=== PATIENT | female | born 1980 | race Caucasian/White ===

== ENCOUNTER 2022-07-05 17:09 | Emergency (ER) | payer SELFPAY ==
--- OUTSIDE RECORDS SUMMARY | 2022-07-05 17:21 | XMS REPORT | Continuity of Care Document ---
:1980 Author Organization [facility] t Address [address] [place] [address] Care Team Providers Name Role Phone UNKNOWN, REFFERING Primary Care Physician Unavailable TORY ROSE Attending Clinician Unavailable TORY ROSE Attending Clinician Unavailable Merry Humphrey Attending Clinician MERRY BUSTILLOS Attending Clinician Unavailable Doctor Unassigned, [place] Attending Clinician Unavailable Provider, [facility] Attending Clinician Unavailable Yasmani Escobar MD Attending Clinician Chayito HUMPHREYS Attending Clinician Unavailable Chayito Terry Attending Clinician Anneliese Gonzalez RN Attending Clinician Unavailable Only, [facility] Test Attending Clinician Unavailable Guerrero Irving Attending Clinician GUERRERO CH Attending Clinician Unavailable YASMANI ESCOBAR Attending Clinician Unavailable DHRUV CROWDER Attending Clinician Unavailable Huma Johnson RN Attending Clinician Unavailable Bernardo Tyler DO Attending Clinician Provider, [facility] Attending Clinician Unavailable Alexander Iglesias PA-C Attending Clinician ALEXANDER IGLESIAS Attending Clinician Unavailable Pcp, Patient Does Not Have A Attending Clinician [phone] Seth Diaz MD Attending Clinician Anene INSIDE TRUCKER, Alysa Attending Clinician ALYSA BLOOD Attending Clinician Unavailable [facility] Attending Clinician Unavailable GASTON CURRAN M.D. Attending Clinician Unavailable KOLTNO MUÑIZ Attending Clinician Unavailable SE, ECHO Attending Clinician Unavailable YAMILETH RAMIREZ M.D., Manuela CARSON Attending Clinician Unavailable Chayito HUMPHREYS Admitting Clinician Unavailable YAMILETH RAMIREZ M.D., YAMILETH Admitting Clinician Unavail able Payers Payer Name Policy Type Policy Number Effective Date Expiration Date Juliano bains [facility] [id number] 2017 00:00:00 Problems Condition Condition Condition Status Onset Resolution Last Treating Co mments Source Name Details Category Date Date Treatment Clinician Date Pain in Pain in Disease Active Univers both hands both hands 01-26 it y of 00:00: [place] 00 Medical Branch intermediate project manager assisted Disease Active Uni vers (current) (current) 01-26 ity of use of use of 00:00: [place] non-steroi non-steroi 00 Me dical crow crow Branch anti-infla anti-infla mmatories mmatories (nsaid) (nsaid) Pain in Pain in Disease Active Univers joint, joint, 01-26 ity of multiple multiple 00:00: [place] sites sites 00 [facility] Branch Swelling Swelling Disease Active Unive rs of both of both 01-26 ity of hands hands 00:00: [place] 00 Medical Branch intermediate project manager intermediate project manager Disease Active Uni vers (current) (current) 01-26 ity of use of use of 00:00: [place] systemic systemic 00 Medica l steroids steroids Branch Long-term Long-term Disease Active Uni vers use of use of 01-26 ity of Plaquenil Plaquenil 00:[place] [facility] [place] Immunizati Immunizati Disease Active U nivers on on 01-26 it[place] of counseling counseling [place] [facility] Long-term Long-term Disease Active Uni vers use of use of 01-26 ity of Plaquenil Plaqu[place]il [place] [facility] SVT SVT Disease Active Univers (supravent (supravent 4-30 it y of ricular ricular 00:00: [place] tachycardi tachycardi 00 Me dical a) a) Branch Drug Drug Disease Active 2016-05 [facility] overdose, overdose, 1-28 ity of intentiona intentiona 00:[place] [facility] Drug Drug Disease Active 2016-05 [facility] overdose, overdose, - ity of intentiona intentiona 00:[place] [facility] Obesity Obesity Disease Active 2016-05 Univers (BMI (BMI 1- ity of 30-39.9) 30-39.9) 00:00: [place] 00 Medical Branch Insomnia Insomnia Disease Active 2014-05 Unive rs 05-25 ity of 00:00: [place] 00 Medical Branch Anxiety Anxiety Disease Active 2014-05 Univers 05-25 ity of 00:00: [place] 00 Medical Branch Left Left Disease Active 2014-05 Univers shoulder shoulder 05-25 ity of pain pain 00:00: [place] 00 Medical Branch Primary Primary Disease Active 2014-05 Univers osteoarthr osteoarthr 05-25 it y of itis itis 00:00: [place] 00 Medical Branch History of History of Problem Resolve [facility] paroxysmal paroxysmal [id number] d Physici supraventr supraventr an s icular icular tachycardi tachycardi a a Heart Heart Problem Active [facility] palpitatio palpitatio [id number] Physici ns ns ans Allergies, Adverse Reactions, Alerts Allergy Allergy Status Severity Reaction(s) Onset Inactive Treating Comm ents Source Name Type Date Date Clinician BUPROPIO DRUG Active High Other-Cmnt 2016-05 Univ ers N HCL INGREDI 2-12 ity of 00:00: [place] 00 Medical Branch Bupropio Propensi Active Other - See 2016-05 Suicidal Univers n Hcl ty to comments 2-12 ideations ity o f adverse 00:00: [place] reaction 00 Medical s to Branch drug Family History Family Member Diagnosis Comments Start Date Stop Date Source Grandmother Family history of H/O heart [facility] artery stent Grandmother Family history of coronary [facility] artery disease Social History Social Habit Start Date Stop Date Quantity Comments Source History SDOH University o f Alcohol Frequency [place] M edical Branch History SDOH University o f Alcohol Std [place] Medical Drinks Branch History SDOH University o f Alcohol Binge [place] Medic al Branch Exposure to 2022-01-23 2022-02-02 Yes University of SARS-CoV-2 00:00:00 00:19:00 [facility] (event) Branch Alcohol intake 2020-01-22 2020-01-22 0 /d University of 00:00:00 00:00:00 [facility] Tobacco use and 2017-11-18 2017-11-18 Smokeless tobacco Un iversity of exposure 00:00:00 00:00:00 non-user [facility] Alcohol Comment 2017-11-18 2017-11-18 social Universit y of 00:00:00 00:00:00 [facility] Sex [birth year] At [birth year] Universit y of 00:00:00 00:00:00 [facility] Smoking Status Start Date Stop Date Source Never smoked tobacco [facility] Medications Ordered Filled Start Stop Current Ordering Indication Dosage Frequency Signature Comments Components Source Medication Medication Date Date Medication? Clinician (SIG) Name Name proMETHazin 2021- No 25mg 25 mg, IV Univers e 02-02 Piggyback, ity of (PHENERGAN) 07:30: 07:36 [place]CE[place] 1 [place] 25 [place] in 00 :00 dose, On Medical NaCl 0.9% Mon Branch (NS) 50 mL 02/02/22 at IV 0230, BRAN piggyback NaCl 0.9% 2021- No 500mL at 999 Univ ers (NS) bolus 02-02 mL/hr, 500 it y of infusion 07:30: 08:07 mL, IV [place] 500 mL 00 :00 Infusion, Medical ONCE, 1 Branch dose, On Wed02/02/22 at 0230, STAT NaCl 0.9% 2021- No 1000mL at 999 Uni vers (NS) bolus 02-02 mL/hr, ity of infusion 06:15: 07:40 1,000 mL, Brendan as 1,000 mL 00 :00 IV Medical Infusion, Branch ONCE, 1 dose, On Wed02/02/22 at 0115, BRAN ondansetron 2021- No 4mg 4 mg, Slow Univers (ZOFRAN 02-02 IV Push, ity of (PF)) 05:30: 05:35 ONCE, 1 [place] injection 4 00 :00 dose, On Medi alma delia mg Mon Branch 02/02/22 at 0030, BRAN proMETHazin Yes [id number] 25mg Take 1 Univers e 25 mg 9-12 tablet by ity of tablet 00:00: mouth [place] 00 every 6 Medical (six) Branch hours as needed for Nausea and Vomiting (N/V). ciprofloxac 2021- No [id number] 1[drp] Place 1 Univers in HCl 0.3 12-24 [id number] Drop in ity of % opthalmic 00:00: 04:59 right eye [place] drops 00 :00 4 (four) Medical times Branch daily for 10 days. ciprofloxac 2021- No [id number] 1[drp] Place 1 Univers in HCl 0.3 12-24 [id number] Drop in ity of % opthalmic 00:00: 04:59 right eye [place] drops 00 :00 4 (four) Medical times Branch daily for 10 days. methocarbam 2021- No 500mg 500 mg, U nivers oL 08-03 Oral, ity of (ROBAXIN) 23:30: 22:49 ONCE, 1 [place] tablet 500 00 :00 dose, On Medic al mg Sun Branch 08/03/21 at 1830, Routine HYDROcodone 2021- No 1{tbl} 1 tablet, Univers -acetaminop 08-03 Oral, ity of hen (NORCO) 22:30: 22:49 [place]CE[place] 1 [place] 10-325 mg 00 :00 dose, On Medica l tablet 1 Sun Branch tablet 08/03/21 at 1730, Routine ibuprofen Yes [id number] 600mg Take 1 Univers 600 mg - [id number] tablet by ity of tablet 00:00: mouth [place] 00 every 6 Medical (six) Branch hours as needed for Pain (scale 4-6). methocarbam Yes [id number] 500mg Take 1 Univers oL 500 mg - [id number] tablet by ity of tablet 00:00: mouth 4 [place] 00 (four) Medical times Branch daily. ibuprofen 2021-0 Yes [id number] 600mg Take 1 Univers 600 mg - [id number] tablet by ity of tablet 00:00: mouth [place] 00 every 6 Medical (six) Branch hours as needed for Pain (scale 4-6). methocarbam 202-0 Yes [id number] 500mg Take 1 Univers oL 500 mg 3-13 [id number] tablet by ity of tablet 00:00: mouth (four) Medical times Branch daily. ibuprofen 2021-0 Yes [id number] 600mg Take 1 Univers 600 mg 3-13 [id number] tablet by ity of tablet 00:00: mouth 00 every 6 Medical (six) Branch hours as needed for Pain (scale 4-6). methocarbam 2021-0 Yes [id number] 500mg Take 1 Univers oL 500 mg 3-13 [id number] tablet by ity of tablet 00:00: mouth (four) Medical times Branch daily. ibuprofen 2021-0 Yes [id number] 600mg Take 1 Univers 600 mg 3-13 [id number] tablet by ity of tablet 00:00: mouth 00 every 6 Medical (six) Branch hours as needed for Pain (scale 4-6). methocarbam 2021-0 Yes [id number] 500mg Take 1 Univers oL 500 mg 3-13 [id number] tablet by ity of tablet 00:00: mouth (four) Medical times Branch daily. ibuprofen 2021-0 Yes [id number] 600mg Take 1 Univers 600 mg 3-13 [id number] tablet by ity of tablet 00:00: mouth 00 every 6 Medical (six) Branch hours as needed for Pain (scale 4-6). methocarbam 2021-0 Yes [id number] 500mg Take 1 Univers oL 500 mg 3-13 [id number] tablet by ity of tablet 00:00: mouth (four) Medical times Branch daily. ibuprofen 2021-0 Yes [id number] 600mg Take 1 Univers 600 mg 3-13 [id number] tablet by ity of tablet 00:00: mouth every 6 Medical (six) Branch hours as needed for Pain (scale 4-6). methocarbam 2021-0 Yes [id number] 500mg Take 1 Univers oL 500 mg 3-13 [id number] tablet by ity of tablet 00:00: mouth (four) Medical times Branch daily. DULoxetine 2020-05 Yes [id number] 60mg Take 1 U nivers 60 mg 2-20 capsule by ity of capsule 00:00: mouth 00 daily. Medical Branch DULoxetine 2020-05 Yes [id number] 60mg Take 1 U nivers 60 mg 2-20 capsule by ity of capsule 00:00: mouth [place] 00 daily. Medical Branch DULoxetine 2020-05 Yes [id number] 60mg Take 1 U nivers 60 mg 2-20 capsule by ity of capsule 00:00: mouth [place] 00 daily. Medical Branch DULoxetine 2020-05 Yes [id number] 60mg Take 1 U nivers 60 mg 2-20 capsule by ity of capsule 00:00: mouth [place] 00 daily. Medical Branch DULoxetine 2020-05 Yes [id number] 60mg Take 1 U nivers 60 mg 2-20 capsule by ity of capsule 00:00: mouth [place] 00 daily. Medical Branch DULoxetine 2020-05 Yes [id number] 60mg Take 1 U nivers 60 mg 2-20 capsule by ity of capsule 00:00: mouth [place] 00 daily. Medical Branch DULoxetine 2020-05 Yes [id number] 60mg Take 1 U nivers 60 mg 2-20 capsule by ity of capsule 00:00: mouth [place] 00 daily. Medical Branch DULoxetine 2020-05 Yes [id number] 60mg Take 1 U nivers 60 mg 2-20 capsule by ity of capsule 00:00: mouth [place] 00 daily. Medical Branch DULoxetine 2020-05 Yes [id number] 60mg Take 1 U nivers 60 mg 2-20 capsule by ity of capsule 00:00: mouth [place] 00 daily. Medical Branch DULoxetine 2020-05 Yes [id number] 60mg Take 1 U nivers 60 mg 1-17 capsule by ity of capsule 00:00: mouth [place] 00 daily. Medical Branch DULoxetine 2020-05 Yes [id number] 60mg Take 1 U nivers 60 mg 1-17 capsule by ity of capsule 00:00: mouth [place] 00 daily. Medical Branch DULoxetine 2020-05- [id number] 60mg Take 1 Univers 60 mg 1-17 12-20 capsule by ity of capsule 00:00: 00:00 mouth [place] 00 :00 daily. Medical Branch METOPROLOL 2020-05 Yes [id number] TAKE ONE Univers SUCCINATE 1-10 TABLET BY ity o f XL 50 mg 24 00:00: MOUTH [place] hr tablet 00 DAILY Medical Branch METOPROLOL 2020- Yes [id number] TAKE ONE Univers SUCCINATE 1-10 TABLET BY ity o f XL 50 mg 24 00:00: MOUTH [place] hr tablet 00 DAILY Medical Branch METOPROLOL 2020-05 Yes [id number] TAKE ONE Univers SUCCINATE 1-10 TABLET BY ity o f XL 50 mg 24 00:00: MOUTH [place] hr tablet 00 DAILY Medical Branch METOPROLOL 2020-05 Yes [id number] TAKE ONE Univers SUCCINATE 1-10 TABLET BY ity o f XL 50 mg 24 00:00: MOUTH [place] hr tablet 00 DAILY Medical Branch METOPROLOL 2020-05 Yes [id number] TAKE ONE Univers SUCCINATE 1-10 TABLET BY ity o f XL 50 mg 24 00:00: MOUTH [place] hr tablet 00 DAILY Medical Branch METOPROLOL 2020-05 Yes [id number] TAKE ONE Univers SUCCINATE 1-10 TABLET BY ity o f XL 50 mg 24 00:00: MOUTH [place] hr tablet 00 DAILY Medical Branch METOPROLOL 2020-05 Yes [id number] TAKE ONE Univers SUCCINATE 1-10 TABLET BY ity o f XL 50 mg 24 00:00: MOUTH [place] hr tablet 00 DAILY Medical Branch METOPROLOL 2020-05 Yes [id number] TAKE ONE Univers SUCCINATE 1-10 TABLET BY ity o f XL 50 mg 24 00:00: MOUTH [place] hr tablet 00 DAILY Medical Branch METOPROLOL 2020-05 Yes [id number] TAKE ONE Univers SUCCINATE 1-10 TABLET BY ity o f XL 50 mg 24 00:00: MOUTH [place] hr tablet 00 DAILY Medical Branch METOPROLOL 2020-05 Yes [id number] TAKE ONE Univers SUCCINATE 1-10 TABLET BY ity o f XL 50 mg 24 00:00: MOUTH [place] hr tablet 00 DAILY Medical Branch METOPROLOL 2020-05 Yes [id number] TAKE ONE Univers SUCCINATE 1-10 TABLET BY ity o f XL 50 mg 24 00:00: MOUTH [place] hr tablet 00 DAILY Medical Branch METOPROLOL 2020-05 Yes [id number] TAKE ONE Univers SUCCINATE 1-10 TABLET BY ity o f XL 50 mg 24 00:00: MOUTH [place] hr tablet 00 DAILY Medical Branch CYCLOBENZAP 2020-05 Yes [id number] TAKE ONE Univers RINE 10 mg 0-06 TABLET BY ity of tablet 00:00: MOUTH [place] 00 TWICE A Medical DAY Branch NEEDED FOR MUSCLE SPASMS CYCLOBENZAP 2020-05 Yes [id number] TAKE ONE Univers RINE 10 mg 0-06 TABLET BY ity of tablet 00:00: MOUTH [place] 00 TWICE A Medical DAY Branch NEEDED FOR MUSCLE SPASMS CYCLOBENZAP 2020-1 Yes [id number] TAKE ONE Univers RINE 10 mg 0-06 TABLET BY ity of tablet 00:00: MOUTH [place] 00 TWICE A Medical DAY Branch NEEDED FOR MUSCLE SPASMS CYCLOBENZAP 2020-1 Yes [id number] TAKE ONE Univers RINE 10 mg 0-06 TABLET BY ity of tablet 00:00: MOUTH [place] 00 TWICE A Medical DAY Branch NEEDED FOR MUSCLE SPASMS CYCLOBENZAP 2020- Yes [id number] TAKE ONE Univers RINE 10 mg 0-06 TABLET BY ity of tablet 00:00: MOUTH [place] 00 TWICE A Medical DAY Branch NEEDED FOR MUSCLE SPASMS CYCLOBENZAP 2020- Yes [id number] TAKE ONE Univers RINE 10 mg 0-06 TABLET BY ity of tablet 00:00: MOUTH [place] 00 TWICE A Medical DAY Branch NEEDED FOR MUSCLE SPASMS CYCLOBENZAP 2020- Yes [id number] TAKE ONE Univers RINE 10 mg 0-06 TABLET BY ity of tablet 00:00: MOUTH [place] 00 TWICE A Medical DAY Branch NEEDED FOR MUSCLE SPASMS CYCLOBENZAP 2020-1 Yes [id number] TAKE ONE Univers RINE 10 mg 0-06 TABLET BY ity of tablet 00:00: MOUTH [place] 00 TWICE A Medical DAY Branch NEEDED FOR MUSCLE SPASMS CYCLOBENZAP 2020-1 Yes [id number] TAKE ONE Univers RINE 10 mg 0-06 TABLET BY ity of tablet 00:00: MOUTH [place] 00 TWICE A Medical DAY Branch NEEDED FOR MUSCLE SPASMS CYCLOBENZAP 2020-1 Yes [id number] TAKE ONE Univers RINE 10 mg 0-06 TABLET BY ity of tablet 00:00: MOUTH [place] 00 TWICE A Medical DAY Branch NEEDED FOR MUSCLE SPASMS CYCLOBENZAP 1-1 Yes [id number] TAKE ONE Univers RINE 10 mg 0-06 TABLET BY ity of tablet 00:00: MOUTH [place] 00 TWICE A Medical DAY Branch NEEDED FOR MUSCLE SPASMS CYCLOBENZAP 2020-1 Yes [id number] TAKE ONE Univers RINE 10 mg 0-06 TABLET BY ity of tablet 00:00: MOUTH [place] 00 TWICE A Medical DAY Branch NEEDED FOR MUSCLE SPASMS CYCLOBENZAP 2020-1 Yes [id number] TAKE ONE Univers RINE 10 mg 0-06 TABLET BY ity of tablet 00:00: MOUTH [place] 00 TWICE A Medical DAY Branch NEEDED FOR MUSCLE SPASMS DULOXETINE 2020-05 Yes [id number] TAKE ONE Univers 60 mg 0-05 CAPSULE BY ity of capsule 00:00: MOUTH [place] 00 DAILY Medical Branch DULOXETINE 2020-1 Yes [id number] TAKE ONE Univers 60 mg 0-05 CAPSULE BY ity of capsule 00:00: MOUTH [place] 00 DAILY Medical Branch DULOXETINE 1 2021- No [id number] TAKE ONE Univers 60 mg 0-05 11-17 CAPSULE BY ity of capsule 00:00: 00:00 MOUTH [place] 00 :00 DAILY Medical Branch DULOXETINE 2020-0 Yes [id number] TAKE ONE Univers 60 mg 9-07 CAPSULE BY ity of capsule 00:00: MOUTH [place] 00 DAILY Medical Branch DULOXETINE 0 Yes [id number] TAKE ONE Univers 60 mg 9-07 CAPSULE BY ity of capsule 00:00: MOUTH [place] 00 DAILY Medical Branch DULOXETINE 2020-0 2020- No [id number] TAKE ONE Univers 60 mg 9-07 10-05 CAPSULE BY ity of capsule 00:00: 00:00 MOUTH [place] 00 :00 DAILY Medical Branch zolpidem 2020-0 Yes [id number] 12.5mg Take 1 Univers 12.5 mg CR 8-19 tablet by ity of tablet 00:00: mouth at [place] 00 bedtime as Medical needed for Branch Sleep. cyclobenzap 0 Yes [id number] TAKE ONE Univers rine 10 mg 8-19 TABLET BY ity of tablet 00:00: MOUTH [place] 00 TWICE A Medical DAY Branch NEEDED FOR MUSCLE SPASMS zolpidem 2020-0 Yes [id number] 12.5mg Take 1 Univers 12.5 mg CR 8-19 tablet by ity of tablet 00:00: mouth at [place] 00 bedtime as Medical needed for Branch Sleep. zolpidem 2020-0 Yes [id number] 12.5mg Take 1 Univers 12.5 mg CR 8-19 tablet by ity of tablet 00:00: mouth at [place] 00 bedtime as Medical needed for Branch Sleep. zolpidem 2020-0 Yes [id number] 12.5mg Take 1 Univers 12.5 mg CR 8-19 tablet by ity of tablet 00:00: mouth at [place] 00 bedtime as Medical needed for Branch Sleep. zolpidem 0 Yes 12.5mg Take 1 Univers 12.5 mg CR 8-19 tablet by ity of tablet 00:00: mouth at [place] 00 bedtime as Medical needed for Branch Sleep. zolpidem 0 Yes 12.5mg Take 1 Univers 12.5 mg CR 8-19 tablet by ity of tablet 00:00: mouth at [place] 00 bedtime as Medical needed for Branch Sleep. zolpidem 0 Yes 12.5mg Take 1 Univers 12.5 mg CR 8-19 tablet by ity of tablet 00:00: mouth at [place] 00 bedtime as Medical needed for Branch Sleep. zolpidem Yes 12.5mg Take 1 Univers 12.5 mg CR 8-19 tablet by ity of tablet 00:00: mouth at [place] 00 bedtime as Medical needed for Branch Sleep. zolpidem Yes 12.5mg Take 1 Univers 12.5 mg CR 8-19 tablet by ity of tablet 00:00: mouth at [place] 00 bedtime as Medical needed for Branch Sleep. zolpidem Yes 12.5mg Take 1 Univers 12.5 mg CR 8-19 tablet by ity of tablet 00:00: mouth at [place] 00 bedtime as Medical needed for Branch Sleep. zolpidem Yes 12.5mg Take 1 Univers 12.5 mg CR 8-19 tablet by ity of tablet 00:00: mouth at [place] 00 bedtime as Medical needed for Branch Sleep. zolpidem Yes 12.5mg Take 1 Univers 12.5 mg CR 8-19 tablet by ity of tablet 00:00: mouth at [place] 00 bedtime as Medical needed for Branch Sleep. zolpidem Yes 12.5mg Take 1 Univers 12.5 mg CR 8-19 tablet by ity of tablet 00:00: mouth at [place] 00 bedtime as Medical needed for Branch Sleep. zolpidem Yes 12.5mg Take 1 Univers 12.5 mg CR 8-19 tablet by ity of tablet 00:00: mouth at [place] 00 bedtime as Medical needed for Branch Sleep. zolpidem 2020-0 Yes [id number] 12.5mg Take 1 Univers 12.5 mg CR 8-19 tablet by ity of tablet 00:00: mouth at [place] 00 bedtime as Medical needed for Branch Sleep. cyclobenzap 2020-0 Yes [id number] TAKE ONE Univers rine 10 mg 8-19 TABLET BY ity of tablet 00:00: MOUTH [place] 00 TWICE A Medical DAY Branch NEEDED FOR MUSCLE SPASMS cyclobenzap 2020-0 2021- No [id number] TAKE ONE Univers rine 10 mg 8-19 10-06 TABLET BY ity of tablet 00:00: 00:00 MOUTH [place] 00 :00 TWICE A Medical DAY Branch NEEDED FOR MUSCLE SPASMS DULOXETINE 2020-0 Yes [id number] TAKE ONE Univers 60 mg 8-02 CAPSULE BY ity of capsule 00:00: MOUTH [place] 00 DAILY Medical Branch DULOXETINE 2020-0 2020- No [id number] TAKE ONE Univers 60 mg 8-02 09-07 CAPSULE BY ity of capsule 00:00: 00:00 MOUTH [place] 00 :00 DAILY Medical Branch DULOXETINE 2020-0 2020- No [id number] TAKE ONE Univers 60 mg 8-02 09-07 CAPSULE BY ity of capsule 00:00: 00:00 MOUTH [place] 00 :00 DAILY Medical Branch zolpidem 2020-0 Yes [id number] 12.5mg Take 1 Univers 12.5 mg CR 7-23 tablet by ity of tablet 00:00: mouth at [place] 00 bedtime as Medical needed for Branch Sleep. zolpidem 2020-0 Yes [id number] 12.5mg Take 1 Univers 12.5 mg CR 7-23 tablet by ity of tablet 00:00: mouth at [place] 00 bedtime as Medical needed for Branch Sleep. METOPROLOL 2020-0 Yes [id number] TAKE ONE Univers SUCCINATE 7-20 TABLET BY ity o f XL 50 mg 24 00:00: MOUTH [place] hr tablet 00 DAILY Medical Branch METOPROLOL 2020-0 Yes [id number] TAKE ONE Univers SUCCINATE 7-20 TABLET BY ity o f XL 50 mg 24 00:00: MOUTH [place] hr tablet 00 DAILY Medical Branch METOPROLOL 2020-0 Yes [id number] TAKE ONE Univers SUCCINATE 7-20 TABLET BY ity o f XL 50 mg 24 00:00: MOUTH [place] hr tablet 00 DAILY Medical Branch METOPROLOL 2020-0 Yes [id number] TAKE ONE Univers SUCCINATE 7-20 TABLET BY ity o f XL 50 mg 24 00:00: MOUTH [place] hr tablet 00 DAILY Medical Branch METOPROLOL 2020-0 Yes [id number] TAKE ONE Univers SUCCINATE 7-20 TABLET BY ity o f XL 50 mg 24 00:00: MOUTH [place] hr tablet 00 DAILY Medical Branch METOPROLOL 2020-0 Yes [id number] TAKE ONE Univers SUCCINATE 7-20 TABLET BY ity o f XL 50 mg 24 00:00: MOUTH [place] hr tablet 00 DAILY Medical Branch METOPROLOL 2020-0 2021- No [id number] TAKE ONE Univers SUCCINATE 7-20 11-10 TABLET BY ity of XL 50 mg 24 00:00: 00:00 MOUTH [place] hr tablet 00 :00 DAILY Medical Branch DULOXETINE 0 Yes [id number] TAKE ONE [facility] 60 mg 6-07 CAPSULE BY ity of capsule 00:00: MOUTH [place] 00 DAILY Medical Branch DULOXETINE 2020-0 Yes [id number] TAKE ONE [facility] 60 mg 6-07 CAPSULE BY ity of capsule 00:00: MOUTH [place] 00 DAILY Medical Branch DULOXETINE 2020-0 Yes [id number] TAKE ONE Univers 60 mg 6-07 CAPSULE BY ity of capsule 00:00: MOUTH [place] 00 DAILY Medical Branch DULOXETINE 2020-0 2020- No [id number] TAKE ONE Univers 60 mg 6-07 08-02 CAPSULE BY ity of capsule 00:00: 00:00 MOUTH [place] 00 :00 DAILY Medical Branch DULOXETINE 2020-0 Yes [id number] TAKE ONE Univers 60 mg 5-17 CAPSULE BY ity of capsule 00:00: MOUTH [place] 00 DAILY Medical Branch DULOXETINE 2020-0 Yes [id number] TAKE ONE Univers 60 mg 5-17 CAPSULE BY ity of capsule 00:00: MOUTH [place] 00 DAILY Medical Branch DULOXETINE 2020-0 1- No [id number] TAKE ONE Univers 60 mg 5-17 06-07 CAPSULE BY ity of capsule 00:00: 00:00 MOUTH [place] 00 :00 DAILY Medical Branch cyclobenzap 2020-0 Yes [id number] TAKE ONE Univers rine 10 mg 5-04 TABLET BY ity of tablet 00:00: MOUTH [place] 00 TWICE A Medical DAY Branch NEEDED FOR MUSCLE SPASMS cyclobenzap 2020-0 Yes [id number] TAKE ONE Univers rine 10 mg 5-04 TABLET BY ity of tablet 00:00: MOUTH [place] 00 TWICE A Medical DAY Branch NEEDED FOR MUSCLE SPASMS cyclobenzap 2021-0 Yes [id number] TAKE ONE Univers rine 10 mg 5-04 TABLET BY ity of tablet 00:00: MOUTH [place] 00 TWICE A Medical DAY Branch NEEDED FOR MUSCLE SPASMS cyclobenzap 2021-0 Yes [id number] TAKE ONE Univers rine 10 mg 5-04 TABLET BY ity of tablet 00:00: MOUTH [place] 00 TWICE A Medical DAY Branch NEEDED FOR MUSCLE SPASMS cyclobenzap 2021-0 Yes [id number] TAKE ONE Univers rine 10 mg 5-04 TABLET BY ity of tablet 00:00: MOUTH [place] 00 TWICE A Medical DAY Branch NEEDED FOR MUSCLE SPASMS cyclobenzap 2021-0 Yes [id number] TAKE ONE Univers rine 10 mg 5-04 TABLET BY ity of tablet 00:00: MOUTH [place] 00 TWICE A Medical DAY Branch NEEDED FOR MUSCLE SPASMS cyclobenzap 2021-0 Yes [id number] TAKE ONE Univers rine 10 mg 5-04 TABLET BY ity of tablet 00:00: MOUTH [place] 00 TWICE A Medical DAY Branch NEEDED FOR MUSCLE SPASMS CYCLOBENZAP 2021-0 Yes [id number] TAKE ONE Univers RINE 10 mg 4-06 TABLET BY ity of tablet 00:00: MOUTH [place] 00 TWICE A Medical DAY Branch NEEDED FOR MUSCLE SPASM CYCLOBENZAP 2021-0 2021- No [id number] TAKE ONE Univers RINE 10 mg 4-06 05-04 TABLET BY ity of tablet 00:00: 00:00 MOUTH [place] 00 :00 TWICE A Medical DAY Branch NEEDED FOR MUSCLE SPASM HYDROcodone 202-0 Yes [id number] 1{tbl} Take 1 Un chely -acetaminop 3-24 tablet by ity of hen 7.5-325 00:00: mouth [place] mg per 00 every 6 Medical tablet (six) Branch hours as needed for Pain. Indication s: chronic pain HYDROcodone 2021-0 Yes [id number] 1{tbl} Take 1 Un chely -acetaminop 3-24 tablet by ity of hen 7.5-325 00:00: mouth [place] mg per 00 every 6 Medical tablet (six) Branch hours as needed for Pain. Indication s: chronic pain HYDROcodone 202-0 Yes [id number] 1{tbl} Take 1 Un chely -acetaminop 3-24 tablet by ity of hen 7.5-325 00:00: mouth [place] mg per 00 every 6 Medical tablet (six) Branch hours as needed for Pain. Indication s: chronic pain HYDROcodone Yes [id number] 1{tbl} Take 1 Un chely -acetaminop 3-24 tablet by ity of hen 7.5-325 00:00: mouth [place] mg per 00 every 6 Medical tablet (six) Branch hours as needed for Pain. Indication s: chronic pain HYDROcodone Yes 2745 1{tbl} Take 1 [facility] -acetaminop 3-24 tablet by [facility] of hen 7.5-325 00:00: mouth [place] mg per 00 every 6 Medical tablet (six) Branch hours as needed for Pain. Indication s: chronic pain HYDROcodone Yes 2745 1{tbl} Take 1 [facility] che[facility] -acetaminop 3-24 tablet by ity of hen 7.5-325 00:00: mouth [place] mg per 00 every 6 Medical tablet (six) Branch hours as needed for Pain. Indication s: chronic pain HYDROcodone Yes 2745 1{tbl} Take 1 [facility] che[facility] -acetaminop 3-24 tablet by [facility]y of hen 7.5-325 00:00: mouth [place] mg per 00 every 6 Medical tablet (six) Branch hours as needed for Pain. Indication s: chronic pain HYDROcodone Yes 2745 1{tbl} Take 1 [facility] che[facility] -acetaminop 3-24 tablet by [facility]y of hen 7.5-325 00:00: mouth [place] mg per 00 every 6 Medical tablet (six) Branch hours as needed for Pain. Indication s: chronic pain HYDROcodone Yes 2745 1{tbl} Take 1 [facility] che[facility] -acetaminop 3-24 tablet by ity of hen 7.5-325 00:00: mouth [place] mg per 00 every 6 Medical tablet (six) Branch hours as needed for Pain. Indication s: chronic pain ALPRAZOLAM Yes [id number] TAKE ONE [facility] 0.5 mg 3-22 TABLET BY ity of tablet 00:00: MOUTH [place] 00 THREE Medical TIMES A Branch DAY NEEDED FOR ANXIETY ALPRAZOLAM Yes [id number] TAKE ONE [facility] 0.5 mg 3-22 TABLET BY ity of tablet 00:00: MOUTH [place] 00 THREE Medical TIMES A Branch DAY NEEDED FOR ANXIETY ALPRAZOLAM 2021-0 Yes [id number] TAKE ONE [facility] 0.5 mg 3-22 TABLET BY ity of tablet 00:00: MOUTH [place] 00 THREE Medical TIMES A Branch DAY NEEDED FOR ANXIETY ALPRAZOLAM 2021-0 Yes [id number] TAKE ONE [facility] 0.5 mg 3-22 TABLET BY ity of tablet 00:00: MOUTH [place] 00 THREE Medical TIMES A Branch DAY NEEDED FOR ANXIETY ALPRAZOLAM 1-0 Yes [id number] TAKE ONE [facility] 0.5 mg 3-22 TABLET BY ity of tablet 00:00: MOUTH 00 THREE Medical TIMES A Branch DAY NEEDED FOR ANXIETY ALPRAZOLAM 1-0 Yes [id number] TAKE ONE [facility] 0.5 mg 3-22 TABLET BY ity of tablet 00:00: MOUTH 00 THREE Medical TIMES A Branch DAY NEEDED FOR ANXIETY ALPRAZOLAM 1-0 Yes [id number] TAKE ONE [facility] 0.5 mg 3-22 TABLET BY ity of tablet 00:00: MOUTH 00 THREE Medical TIMES A Branch DAY NEEDED FOR ANXIETY ALPRAZOLAM 1-0 Yes [id number] TAKE ONE [facility] 0.5 mg 3-22 TABLET BY ity of tablet 00:00: MOUTH [place] 00 THREE Medical TIMES A Branch DAY NEEDED FOR ANXIETY ALPRAZOLAM 2021-0 Yes [id number] TAKE ONE [facility] 0.5 mg 3-22 TABLET BY ity of tablet 00:00: MOUTH 00 THREE Medical TIMES A Branch DAY NEEDED FOR ANXIETY ALPRAZOLAM 2021-0 Yes [id number] TAKE ONE [facility] 0.5 mg 3-22 TABLET BY ity of tablet 00:00: MOUTH [place] 00 THREE Medical TIMES A Branch DAY NEEDED FOR ANXIETY DULOXETINE 2021-0 Yes [id number] TAKE ONE [facility] 60 mg 2-26 CAPSULE BY ity of capsule 00:00: MOUTH [place] 00 DAILY Medical Branch DULOXETINE 2021-0 Yes [id number] TAKE ONE [facility] 60 mg 2-26 CAPSULE BY ity of capsule 00:00: MOUTH 00 DAILY Medical Branch DULOXETINE 2021-0 Yes [id number] TAKE ONE [facility] 60 mg 2-26 CAPSULE BY ity of capsule 00:00: MOUTH [place] 00 DAILY Medical Branch DULOXETINE 2021-0 Yes [id number] TAKE ONE [facility] 60 mg 2-26 CAPSULE BY ity of capsule 00:00: MOUTH [place] 00 DAILY Medical Branch DULOXETINE 0 Yes [id number] TAKE ONE [facility] 60 mg 2-26 CAPSULE BY ity of capsule 00:00: MOUTH [place] 00 DAILY Medical Branch DULOXETINE 0 Yes [id number] TAKE ONE [facility] 60 mg 2-26 CAPSULE BY ity of capsule 00:00: MOUTH [place] DAILY Medical Branch DULOXETINE 2020- No [id number] TAKE ONE [facility] 60 mg 2-26 05-17 CAPSULE BY ity of capsule 00:00: 00:00 MOUTH [place] 00 :00 DAILY Medical Branch HYDROcodone Yes 2745 1{tbl} Take 1 [facility] chely -acetaminop 2-24 tablet by ity of hen 7.5-325 00:00: mouth [place] mg per 00 every 6 Medical tablet (six) Branch hours as needed for Pain. Indication s: chronic pain HYDROcodone Yes 2745 1{tbl} Take 1 [facility] che[facility] -acetaminop 2-24 tablet by [facility]y of hen 7.5-325 00:00: mouth [place] mg per 00 every 6 Medical tablet (six) Branch hours as needed for Pain. Indication s: chronic pain HYDROcodone Yes 2745 1{tbl} Take 1 [facility] che[facility] -acetaminop 2-24 tablet by [facility]y of hen 7.5-325 00:00: mouth [place] mg per 00 every 6 Medical tablet (six) Branch hours as needed for Pain. Indication s: chronic pain HYDROcodone Yes 2745 1{tbl} Take 1 [facility] che[facility] -acetaminop 2-24 tablet by [facility]y of hen 7.5-325 00:00: mouth [place] mg per 00 every 6 Medical tablet (six) Branch hours as needed for Pain. Indication s: chronic pain HYDROcodone 2020- No 2745 1{tbl} Take 1 [facility] n[facility] -acetaminop 2-24 03-24 tablet by it y of hen 7.5-325 00:00: 00:00 mouth [place] mg per 00 :00 every 6 Medical tablet (six) Branch hours as needed for Pain. Indication s: chronic pain ondansetron 2020- No [id number] 8mg Take 1 [facility] (ZOFRAN 2-12 02-16 tablet by ity of ODT) 8 mg 00:00: 05:59 mouth [place] disintegrat 00 :00 every 8 Medic al ing tablet (eight) Branch hours as needed for Nausea and Vomiting (N/V) for up to 3 days. ondansetron 2020- No [id number] 8mg Take 1 [facility] (ZOFRAN 2-12 02-16 tablet by ity of ODT) 8 mg 00:00: 05:59 mouth [place] disintegrat 00 :00 every 8 Medic al ing tablet (eight) Branch hours as needed for Nausea and Vomiting (N/V) for up to 3 days. ALPRAZOLAM Yes [id number] TAKE ONE [facility] 0.5 mg 2-04 TABLET BY ity of tablet 00:00: MOUTH [place] 00 THREE Medical TIMES A Branch DAY NEEDED FOR OTHER ( ANXIETY ) ALPRAZOLAM Yes [id number] TAKE ONE [facility] 0.5 mg 2-04 TABLET BY ity of tablet 00:00: MOUTH [place] 00 THREE Medical TIMES A Branch DAY NEEDED FOR OTHER ( ANXIETY ) ALPRAZOLAM Yes [id number] TAKE ONE [facility] 0.5 mg 2-04 TABLET BY ity of tablet 00:00: MOUTH [place] 00 THREE Medical TIMES A Branch DAY NEEDED FOR OTHER ( ANXIETY ) ALPRAZOLAM Yes [id number] TAKE ONE [facility] 0.5 mg 2-04 TABLET BY ity of tablet 00:00: MOUTH [place] 00 THREE Medical TIMES A Branch DAY NEEDED FOR OTHER ( ANXIETY ) ALPRAZOLAM Yes [id number] TAKE ONE [facility] 0.5 mg 2-04 TABLET BY ity of tablet 00:00: MOUTH [place] 00 THREE Medical TIMES A Branch DAY NEEDED FOR OTHER ( ANXIETY ) ALPRAZOLAM Yes [id number] TAKE ONE [facility] 0.5 mg 2-04 TABLET BY [facility]y of tablet 00:00: MOUTH [place] 00 THREE Medical TIMES A Branch DAY NEEDED FOR OTHER ( ANXIETY ) ALPRAZOLAM 2020- No [id number] TAKE ONE [facility] 0.5 mg 2-04 03-22 TABLET BY ity of tablet 00:00: 00:00 MOUTH [place] 00 :00 THREE Medical TIMES A Branch DAY NEEDED FOR OTHER ( ANXIETY ) HYDROcodone Yes [id number] 1{tbl} Take 1 [facility] che[facility] -acetaminop 1-26 tablet by [facility]y of hen 7.5-325 00:00: mouth [place] mg per 00 every 6 Medical tablet (six) Branch hours as needed for Pain. Indication s: chronic pain HYDROcodone Yes 2745 1{tbl} Take 1 [facility] che[facility] -acetaminop 1-26 tablet by [facility]y of hen 7.5-325 00:00: mouth [place] mg per 00 every 6 Medical tablet (six) Branch hours as needed for Pain. Indication s: chronic pain HYDROcodone Yes 2745 1{tbl} Take 1 [facility] che[facility] -acetaminop 1-26 tablet by [facility] of hen 7.5-325 00:00: mouth [place] mg per 00 every 6 Medical tablet (six) Branch hours as needed for Pain. Indication s: chronic pain HYDROcodone Yes 2745 1{tbl} Take 1 [facility] che[facility] -acetaminop 1-26 tablet by [facility] of hen 7.5-325 00:00: mouth [place] mg per 00 every 6 Medical tablet (six) Branch hours as needed for Pain. Indication s: chronic pain HYDROcodone 2020- No 2745 1{tbl} Take 1 [facility] nivers -acetaminop 1-26 02-24 tablet by it y of hen 7.5-325 00:00: 00:00 mouth [place] mg per 00 :00 every 6 Medical tablet (six) Branch hours as needed for Pain. Indication s: chronic pain metoprolol 2019-05 Yes [id number] 50mg Take 1 [facility] nivers succinate 2-21 tablet by ity o f XL 50 mg 24 00:00: mouth [place] hr tablet 00 daily. Medical Branch zolpidem 2019-05 Yes [id number] 12.5mg Take 1 [facility] 12.5 mg CR 2-21 tablet by ity of tablet 00:00: mouth at [place] 00 bedtime as Medical needed for Branch Sleep. metoprolol 2019-05 Yes [id number] 50mg Take 1 [facility] nivers succinate 2-21 tablet by ity o f XL 50 mg 24 00:00: mouth [place] hr tablet 00 daily. Medical Branch zolpidem 2019-05 Yes [id number] 12.5mg Take 1 [facility] 12.5 mg CR 2-21 tablet by ity of tablet 00:00: mouth at [place] 00 bedtime as Medical needed for Branch Sleep. metoprolol 2019-05 Yes [id number] 50mg Take 1 [facility] nivers succinate 2-21 tablet by ity o f XL 50 mg 24 00:00: mouth [place] hr tablet 00 daily. Medical Branch zolpidem 2019-05 Yes [id number] 12.5mg Take 1 [facility] 12.5 mg CR 2-21 tablet by ity of tablet 00:00: mouth at [place] 00 bedtime as Medical needed for Branch Sleep. metoprolol 2019-05 Yes [id number] 50mg Take 1 [facility] nivers succinate 2-21 tablet by ity o f XL 50 mg 24 00:00: mouth [place] hr tablet 00 daily. Medical Branch zolpidem 2019-05 Yes [id number] 12.5mg Take 1 [facility] 12.5 mg CR 2-21 tablet by ity of tablet 00:00: mouth at [place] 00 bedtime as Medical needed for Branch Sleep. zolpidem 2019-05 Yes [id number] 12.5mg Take 1 [facility] 12.5 mg CR 2-21 tablet by ity of tablet 00:00: mouth at [place] 00 bedtime as Medical needed for Branch Sleep. HYDROcodone 2019-05 Yes [id number] 1{tbl} Take 1 [facility] che[facility] -acetaminop 2-21 tablet by ity of hen 7.5-325 00:00: mouth [place] mg per 00 every 6 Medical tablet (six) Branch hours as needed for Pain. Indication s: chronic pain metoprolol 2019-05 Yes [id number] 50mg Take 1 [facility] nivers succinate 2-21 tablet by ity o f XL 50 mg 24 00:00: mouth [place] hr tablet 00 daily. Medical Branch zolpidem 2019-05 Yes [id number] 12.5mg Take 1 [facility] 12.5 mg CR 2-21 tablet by ity of tablet 00:00: mouth at [place] 00 bedtime as Medical needed for Branch Sleep. cyclobenzap 2019-05 Yes [id number] TAKE ONE [facility] rine 10 mg 2-21 TABLET BY ity of tablet 00:00: MOUTH [place] 00 TWICE A Medical DAY Branch NEEDED FOR MUSCLE SPASM ALPRAZolam 2019-05 Yes [id number] .5mg Take 1 [facility] n[facility] (XANAX) 0.5 2-21 tablet by ity of mg tablet 00:00: mouth 3 [place] 00 (three) Medical times Branch daily as needed for Other (anxiety). HYDROcodone 2019-05 Yes [id number] 1{tbl} Take 1 [facility] chely -acetaminop 2-21 tablet by ity of hen 7.5-325 00:00: mouth [place] mg per 00 every 6 Medical tablet (six) Branch hours as needed for Pain. Indication s: chronic pain metoprolol 2019-05 Yes [id number] 50mg Take 1 U nivers succinate 2-21 tablet by ity o f XL 50 mg 24 00:00: mouth [place] hr tablet 00 daily. Medical Branch zolpidem 2019-05 Yes [id number] 12.5mg Take 1 [facility] 12.5 mg CR 2-21 tablet by ity of tablet 00:00: mouth at [place] 00 bedtime as Medical needed for Branch Sleep. cyclobenzap 2019-05 Yes [id number] TAKE ONE [facility] rine 10 mg 2-21 TABLET BY ity of tablet 00:00: MOUTH [place] 00 TWICE A Medical DAY Branch NEEDED FOR MUSCLE SPASM ALPRAZolam 2019-05 Yes [id number] .5mg Take 1 [facility] n[facility] (XANAX) 0.5 2-21 tablet by ity of mg tablet 00:00: mouth 3 [place] 00 (three) Medical times Branch daily as needed for Other (anxiety). HYDROcodone 2019-05 Yes [id number] 1{tbl} Take 1 [facility] che[facility] -acetaminop 2-21 tablet by ity of hen 7.5-325 00:00: mouth [place] mg per 00 every 6 Medical tablet (six) Branch hours as needed for Pain. Indication s: chronic pain metoprolol 2019-05 Yes [id number] 50mg Take 1 [facility] nivers succinate 2-21 tablet by ity o f XL 50 mg 24 00:00: mouth [place] hr tablet 00 daily. Medical Branch zolpidem 2019-05 Yes [id number] 12.5mg Take 1 [facility] 12.5 mg CR 2-21 tablet by ity of tablet 00:00: mouth at [place] 00 bedtime as Medical needed for Branch Sleep. cyclobenzap 2019-05 Yes [id number] TAKE ONE [facility] rine 10 mg 2-21 TABLET BY ity of tablet 00:00: MOUTH [place] 00 TWICE A Medical DAY Branch NEEDED FOR MUSCLE SPASM ALPRAZolam 2019-05 Yes [id number] .5mg Take 1 [facility] n[facility] (XANAX) 0.5 2-21 tablet by ity of mg tablet 00:00: mouth 3 [place] 00 (three) Medical times Branch daily as needed for Other (anxiety). metoprolol 2019-05 Yes [id number] 50mg Take 1 [facility] nivers succinate 2-21 tablet by ity o f XL 50 mg 24 00:00: mouth [place] hr tablet 00 daily. Medical Branch zolpidem 2019-05 Yes [id number] 12.5mg Take 1 [facility] 12.5 mg CR 2-21 tablet by ity of tablet 00:00: mouth at [place] 00 bedtime as Medical needed for Branch Sleep. cyclobenzap 2019-05 Yes [id number] TAKE ONE [facility] rine 10 mg 2-21 TABLET BY ity of tablet 00:00: MOUTH [place] 00 TWICE A Medical DAY Branch NEEDED FOR MUSCLE SPASM ALPRAZolam 2019-05 Yes [id number] .5mg Take 1 [facility] n[facility] (XANAX) 0.5 2-21 tablet by ity of mg tablet 00:00: mouth 3 [place] 00 (three) Medical times Branch daily as needed for Other (anxiety). metoprolol 2019-05 Yes [id number] 50mg Take 1 [facility] nivers succinate 2-21 tablet by ity o f XL 50 mg 24 00:00: mouth [place] hr tablet 00 daily. Medical Branch zolpidem 2019-05 Yes [id number] 12.5mg Take 1 [facility] 12.5 mg CR 2-21 tablet by ity of tablet 00:00: mouth at [place] 00 bedtime as Medical needed for Branch Sleep. cyclobenzap 2019-05 Yes [id number] TAKE ONE [facility] rine 10 mg 2-21 TABLET BY ity of tablet 00:00: MOUTH [place] 00 TWICE A Medical DAY Branch NEEDED FOR MUSCLE SPASM metoprolol 2019-05 Yes [id number] 50mg Take 1 [facility] nivers succinate 2-21 tablet by ity o f XL 50 mg 24 00:00: mouth [place] hr tablet 00 daily. Medical Branch zolpidem 2019-05 Yes [id number] 12.5mg Take 1 [facility] 12.5 mg CR 2-21 tablet by [facility]y of tablet 00:00: mouth at [place] 00 bedtime as Medical needed for Branch Sleep. cyclobenzap 2019-05 Yes [id number] TAKE ONE [facility] rine 10 mg 2-21 TABLET BY ity of tablet 00:00: MOUTH [place] 00 TWICE A Medical DAY Branch NEEDED FOR MUSCLE SPASM metoprolol 2020- Yes [id number] 50mg Take 1 [facility] nivers succinate 2-21 tablet by ity o f XL 50 mg 24 00:00: mouth [place] hr tablet 00 daily. Medical Branch zolpidem 2020- Yes [id number] 12.5mg Take 1 [facility] 12.5 mg CR 2-21 tablet by ity of tablet 00:00: mouth at [place] 00 bedtime as Medical needed for Branch Sleep. cyclobenzap 2019- Yes [id number] TAKE ONE [facility] rine 10 mg 2-21 TABLET BY ity of tablet 00:00: MOUTH [place] 00 TWICE A Medical DAY Branch NEEDED FOR MUSCLE SPASM metoprolol 2019- Yes [id number] 50mg Take 1 [facility] nivers succinate 2-21 tablet by ity o f XL 50 mg 24 00:00: mouth [place] hr tablet 00 daily. Medical Branch zolpidem 2020- Yes [id number] 12.5mg Take 1 [facility] 12.5 mg CR 2-21 tablet by ity of tablet 00:00: mouth at [place] 00 bedtime as Medical needed for Branch Sleep. cyclobenzap 2019- Yes [id number] TAKE ONE [facility] rine 10 mg 2-21 TABLET BY ity of tablet 00:00: MOUTH [place] 00 TWICE A Medical DAY Branch NEEDED FOR MUSCLE SPASM metoprolol 2019- Yes [id number] 50mg Take 1 [facility] nivers succinate 2-21 tablet by ity o f XL 50 mg 24 00:00: mouth [place] hr tablet 00 daily. Medical Branch zolpidem 2020- Yes [id number] 12.5mg Take 1 [facility] 12.5 mg CR 2-21 tablet by ity of tablet 00:00: mouth at [place] 00 bedtime as Medical needed for Branch Sleep. cyclobenzap 2019- Yes [id number] TAKE ONE [facility] rine 10 mg 2-21 TABLET BY ity of tablet 00:00: MOUTH [place] 00 TWICE A Medical DAY Branch NEEDED FOR MUSCLE SPASM metoprolol 2020- Yes [id number] 50mg Take 1 [facility] nivers succinate 2-21 tablet by ity o f XL 50 mg 24 00:00: mouth [place] hr tablet 00 daily. Medical Branch zolpidem 2020- Yes [id number] 12.5mg Take 1 [facility] 12.5 mg CR 2-21 tablet by ity of tablet 00:00: mouth at [place] 00 bedtime as Medical needed for Branch Sleep. cyclobenzap 2019- Yes [id number] TAKE ONE [facility] rine 10 mg 2-21 TABLET BY ity of tablet 00:00: MOUTH [place] 00 TWICE A Medical DAY Branch NEEDED FOR MUSCLE SPASM metoprolol 2019- Yes [id number] 50mg Take 1 [facility] nivers succinate 2-21 tablet by ity o f XL 50 mg 24 00:00: mouth [place] hr tablet 00 daily. Medical Branch zolpidem 2019- Yes [id number] 12.5mg Take 1 [facility] 12.5 mg CR 2-21 tablet by ity of tablet 00:00: mouth at [place] 00 bedtime as Medical needed for Branch Sleep. cyclobenzap 2019-05 Yes [id number] TAKE ONE [facility] rine 10 mg 2-21 TABLET BY ity of tablet 00:00: MOUTH [place] 00 TWICE A Medical DAY Branch NEEDED FOR MUSCLE SPASM metoprolol 2019-05 Yes [id number] 50mg Take 1 [facility] nivers succinate 2-21 tablet by ity o f XL 50 mg 24 00:00: mouth [place] hr tablet 00 daily. Medical Branch zolpidem 2019- Yes [id number] 12.5mg Take 1 [facility] 12.5 mg CR 2-21 tablet by ity of tablet 00:00: mouth at [place] 00 bedtime as Medical needed for Branch Sleep. cyclobenzap 2019-05 Yes [id number] TAKE ONE [facility] rine 10 mg 2-21 TABLET BY ity of tablet 00:00: MOUTH [place] 00 TWICE A Medical DAY Branch NEEDED FOR MUSCLE SPASM metoprolol 2019-05 Yes [id number] 50mg Take 1 [facility] nivers succinate 2-21 tablet by ity o f XL 50 mg 24 00:00: mouth [place] hr tablet 00 daily. Medical Branch zolpidem 2019- Yes [id number] 12.5mg Take 1 [facility] 12.5 mg CR 2-21 tablet by ity of tablet 00:00: mouth at [place] 00 bedtime as Medical needed for Branch Sleep. zolpidem 2019-05- No [id number] 12.5mg Take 1 [facility] 12.5 mg CR 2-21 07-23 tablet by ity of tablet 00:00: 00:00 mouth at [place] 00 :00 bedtime as Medical needed for Branch Sleep. metoprolol 2019-05- No [id number] 50mg Take 1 [facility] succinate 2-20 tablet by [facility]y of XL 50 mg 24 00:00: 00:00 mouth [place] hr tablet 00 :00 daily. Medical Branch cyclobenzap 2019-05- No [id number] TAKE ONE [facility] rine 10 mg 07-14 04-06 TABLET BY ity of tablet 00:00: 00:00 MOUTH [place] 00 :00 TWICE A Medical DAY Branch NEEDED FOR MUSCLE SPASM ALPRAZolam 2019-05- No [id number] .5mg Take 1 [facility] (XANAX) 0.5 07-14 02-04 tablet by it y of mg tablet 00:00: 00:00 mouth 3 [place] 00 :00 (three) Medical times Branch daily as needed for Other (anxiety). HYDROcodone 2019-05- No 2745 1{tbl} Take 1 [facility] nivers -acetaminop 07-14 tablet by it y of hen 7.5-325 00:00: 00:00 mouth [place] mg per 00 :00 every 6 Medical tablet (six) Branch hours as needed for Pain. Indication s: chronic pain SUMAtriptan 2019-05- No 6mg 6 mg, [facility] ers (IMITREX) 07-12 Subcutaneo ity of injection 6 19:15: 18:23 , ONCE, [place] mg 00 :00 1 dose, Medical Sat Branch 05/11/20 at 1315, BRAN ketorolac 2019-05- No 30mg 30 mg, Un[facility] rs (TORADOL) 07-12 Slow IV ity of injection 18:00: 17:59 [place], Q6H, [place] 30 mg 00 :00 4 doses, Medical First dose Branch on 05/11/20 at 1200, Last dose on 05/12/20 at 0600, BRAN
Fa culty member approving Restricted medication : SETH DIAZ NaCl 0.9% 2019-05- No 1000mL at 999 Uni vers (NS) bolus 07-12- mL/hr, ity of infusion 17:30: 19:00 1,000 mL, [place] 1,000 mL 00 :00 IV Medical Infusion, Branch ONCE, 1 dose, 05/11/20 at 1130, STAT ondansetron 2019-05 2020- No 4mg 4 mg, Slow [facility] (ZOFRAN 07-12 IV Push, ity of (PF)) 17:30: 16:34 ONCE, 1 [place] injection 4 00 :00 dose, Sat Med ical mg 05/11/20 Branch at 1130, BRAN diphenhydrA 2019-05- No 25mg 25 mg, Uni vers MINE 07-12 Slow IV ity of (BENADRYL) 17:30: 16:36 Push, [place] injection 00 :00 ONCE, 1 Medical 25 mg dose, Sat Branch 05/11/20 at 1130, STAT butalbital- 2019-05 Yes [id number] 1{tbl} Take 1 [facility] acetaminoph 2-19 tablet by ity of en-caff 00:00: mouth [place] 50-325-40 00 every 6 Medical mg tablet (six) Branch hours as needed for Pain (scale 4-6). ondansetron 2019-05 Yes [id number] 4mg Take 1 [facility] 4 mg 2-19 tablet by ity of disintegrat 00:00: mouth [place] ing tablet 00 every 4 Medica l (four) Branch hours as needed for Nausea and Vomiting (N/V). butalbital- 2019-05 Yes [id number] 1{tbl} Take 1 [facility] acetaminoph 2-19 tablet by ity of en-caff 00:00: mouth [place] 50-325-40 00 every 6 Medical mg tablet (six) Branch hours as needed for Pain (scale 4-6). ondansetron 2019-05 Yes [id number] 4mg Take 1 [facility] 4 mg 2-19 tablet by ity of disintegrat 00:00: mouth [place] ing tablet 00 every 4 Medica l (four) Branch hours as needed for Nausea and Vomiting (N/V). butalbital- 2019-05 Yes [id number] 1{tbl} Take 1 [facility] acetaminoph 2-19 tablet by ity of en-caff 00:00: mouth [place] 50-325-40 00 every 6 Medical mg tablet (six) Branch hours as needed for Pain (scale 4-6). ondansetron 2019-05 Yes [id number] 4mg Take 1 [facility] 4 mg 2-19 tablet by ity of disintegrat 00:00: mouth [place] ing tablet 00 every 4 Medica l (four) Branch hours as needed for Nausea and Vomiting (N/V). butalbital- 2019- Yes [id number] 1{tbl} Take 1 [facility] acetaminoph 2-19 tablet by ity of en-caff 00:00: mouth [place] 50-325-40 00 every 6 Medical mg tablet (six) Branch hours as needed for Pain (scale 4-6). ondansetron 2019-05 Yes [id number] 4mg Take 1 [facility] 4 mg 2-19 tablet by ity of disintegrat 00:00: mouth [place] ing tablet 00 every 4 Medica l (four) Branch hours as needed for Nausea and Vomiting (N/V). butalbital- 2019-05 Yes [id number] 1{tbl} Take 1 [facility] acetaminoph 2-19 tablet by ity of en-caff 00:00: mouth [place] 50-325-40 00 every 6 Medical mg tablet (six) Branch hours as needed for Pain (scale 4-6). ondansetron 2019-05 Yes [id number] 4mg Take 1 [facility] 4 mg 2-19 tablet by ity of disintegrat 00:00: mouth [place] ing tablet 00 every 4 Medica l (four) Branch hours as needed for Nausea and Vomiting (N/V). butalbital- 2019-05 Yes [id number] 1{tbl} Take 1 [facility] acetaminoph 2-19 tablet by ity of en-caff 00:00: mouth [place] 50-325-40 00 every 6 Medical mg tablet (six) Branch hours as needed for Pain (scale 4-6). ondansetron 2019-05 Yes [id number] 4mg Take 1 [facility] 4 mg 2-19 tablet by ity of disintegrat 00:00: mouth [place] ing tablet 00 every 4 Medica l (four) Branch hours as needed for Nausea and Vomiting (N/V). butalbital- 2019-05 Yes [id number] 1{tbl} Take 1 [facility] acetaminoph 2-19 tablet by ity of en-caff 00:00: mouth [place] 50-325-40 00 every 6 Medical mg tablet (six) Branch hours as needed for Pain (scale 4-6). ondansetron 2019-05 Yes [id number] 4mg Take 1 [facility] 4 mg 2-19 tablet by ity of disintegrat 00:00: mouth [place] ing tablet 00 every 4 Medica l (four) Branch hours as needed for Nausea and Vomiting (N/V). butalbital- 2019-05 Yes [id number] 1{tbl} Take 1 [facility] acetaminoph 2-19 tablet by ity of en-caff 00:00: mouth [place] 50-325-40 00 every 6 Medical mg tablet (six) Branch hours as needed for Pain (scale 4-6). ondansetron 2019-05 Yes [id number] 4mg Take 1 [facility] 4 mg 2-19 tablet by ity of disintegrat 00:00: mouth [place] ing tablet 00 every 4 Medica l (four) Branch hours as needed for Nausea and Vomiting (N/V). butalbital- 2019-05 Yes [id number] 1{tbl} Take 1 [facility] acetaminoph 2-19 tablet by ity of en-caff 00:00: mouth [place] 50-325-40 00 every 6 Medical mg tablet (six) Branch hours as needed for Pain (scale 4-6). ondansetron 2019-05 Yes [id number] 4mg Take 1 [facility] 4 mg 2-19 tablet by ity of disintegrat 00:00: mouth [place] ing tablet 00 every 4 Medica l (four) Branch hours as needed for Nausea and Vomiting (N/V). butalbital- 2019-05 Yes [id number] 1{tbl} Take 1 [facility] acetaminoph 2-19 tablet by ity of en-caff 00:00: mouth [place] 50-325-40 00 every 6 Medical mg tablet (six) Branch hours as needed for Pain (scale 4-6). ondansetron 2019-05 Yes [id number] 4mg Take 1 [facility] 4 mg 2-19 tablet by ity of disintegrat 00:00: mouth [place] ing tablet 00 every 4 Medica l (four) Branch hours as needed for Nausea and Vomiting (N/V). butalbital- 2019-05 Yes [id number] 1{tbl} Take 1 [facility] acetaminoph 2-19 tablet by ity of en-caff 00:00: mouth [place] 50-325-40 00 every 6 Medical mg tablet (six) Branch hours as needed for Pain (scale 4-6). ondansetron 2019- Yes [id number] 4mg Take 1 [facility] 4 mg 2-19 tablet by ity of disintegrat 00:00: mouth [place] ing tablet 00 every 4 Medica l (four) Branch hours as needed for Nausea and Vomiting (N/V). butalbital- 2019- Yes [id number] 1{tbl} Take 1 [facility] acetaminoph 2-19 tablet by ity of en-caff 00:00: mouth [place] 50-325-40 00 every 6 Medical mg tablet (six) Branch hours as needed for Pain (scale 4-6). ondansetron 2019- Yes [id number] 4mg Take 1 [facility] 4 mg 2-19 tablet by ity of disintegrat 00:00: mouth [place] ing tablet 00 every 4 Medica l (four) Branch hours as needed for Nausea and Vomiting (N/V). butalbital- 2019-05 Yes [id number] 1{tbl} Take 1 [facility] acetaminoph 2-19 tablet by ity of en-caff 00:00: mouth [place] 50-325-40 00 every 6 Medical mg tablet (six) Branch hours as needed for Pain (scale 4-6). ondansetron 2019-05 Yes [id number] 4mg Take 1 [facility] 4 mg 2-19 tablet by ity of disintegrat 00:00: mouth [place] ing tablet 00 every 4 Medica l (four) Branch hours as needed for Nausea and Vomiting (N/V). butalbital- 2019-05 Yes [id number] 1{tbl} Take 1 [facility] acetaminoph 2-19 tablet by ity of en-caff 00:00: mouth [place] 50-325-40 00 every 6 Medical mg tablet (six) Branch hours as needed for Pain (scale 4-6). ondansetron 2019-05 Yes [id number] 4mg Take 1 [facility] 4 mg 2-19 tablet by ity of disintegrat 00:00: mouth [place] ing tablet 00 every 4 Medica l (four) Branch hours as needed for Nausea and Vomiting (N/V). butalbital- 2019- Yes [id number] 1{tbl} Take 1 [facility] acetaminoph 2-19 tablet by ity of en-caff 00:00: mouth [place] 50-325-40 00 every 6 Medical mg tablet (six) Branch hours as needed for Pain (scale 4-6). ondansetron 2019- Yes [id number] 4mg Take 1 [facility] 4 mg 2-19 tablet by [facility] disintegrat 00:00: mouth [place] ing tablet 00 every 4 Medica l (four) Branch hours as needed for Nausea and Vomiting (N/V). butalbital- 2019-05 Yes [id number] 1{tbl} Take 1 [facility] acetaminoph 2-19 tablet by [facility] en-caff 00:00: mouth [place] 50-325-40 00 every 6 Medical mg tablet (six) Branch hours as needed for Pain (scale 4-6). ondansetron 2019-05 Yes [id number] 4mg Take 1 [facility] 4 mg 2-19 tablet by [facility] disintegrat 00:00: mouth [place] ing tablet 00 every 4 Medica l (four) Branch hours as needed for Nausea and Vomiting (N/V). butalbital- 2019-05 Yes [id number] 1{tbl} Take 1 [facility] acetaminoph 2-19 tablet by [facility] en-caff 00:00: mouth [place] 50-325-40 00 every 6 Medical mg tablet (six) Branch hours as needed for Pain (scale 4-6). ondansetron 2019-05 Yes [id number] 4mg Take 1 [facility] 4 mg 2-19 tablet by [facility] disintegrat 00:00: mouth [place] ing tablet 00 every 4 Medica l (four) Branch hours as needed for Nausea and Vomiting (N/V). butalbital- 2019-05 Yes [id number] 1{tbl} Take 1 [facility] acetaminoph 2-19 tablet by [facility] en-caff 00:00: mouth [place] 50-325-40 00 every 6 Medical mg tablet (six) Branch hours as needed for Pain (scale 4-6). ondansetron 2019-05 Yes [id number] 4mg Take 1 [facility] 4 mg 2-19 tablet by [facility] disintegrat 00:00: mouth [place] ing tablet 00 every 4 Medica l (four) Branch hours as needed for Nausea and Vomiting (N/V). butalbital- 2019-05 Yes [id number] 1{tbl} Take 1 [facility] acetaminoph 2-19 tablet by [facility] of en-caff 00:00: mouth [place] 50-325-40 00 every 6 Medical mg tablet (six) Branch hours as needed for Pain (scale 4-6). ondansetron 2019- Yes [id number] 4mg Take 1 [facility] 4 mg 2-19 tablet by [facility] disintegrat 00:00: mouth [place] ing tablet 00 every 4 Medica l (four) Branch hours as needed for Nausea and Vomiting (N/V). butalbital- 2019- Yes [id number] 1{tbl} Take 1 [facility] acetaminoph 2-19 tablet by [facility] of en-caff 00:00: mouth [place] 50-325-40 00 every 6 Medical mg tablet (six) Branch hours as needed for Pain (scale 4-6). ondansetron 2019-05 Yes [id number] 4mg Take 1 [facility] 4 mg 2-19 tablet by [facility] disintegrat 00:00: mouth [place] ing tablet 00 every 4 Medica l (four) Branch hours as needed for Nausea and Vomiting (N/V). butalbital- 2019- Yes [id number] 1{tbl} Take 1 [facility] acetaminoph 2-19 tablet by [facility] en-caff 00:00: mouth [place] 50-325-40 00 every 6 Medical mg tablet (six) Branch hours as needed for Pain (scale 4-6). ondansetron 2019- Yes [id number] 4mg Take 1 [facility] 4 mg 2-19 tablet by [facility] disintegrat 00:00: mouth [place] ing tablet 00 every 4 Medica l (four) Branch hours as needed for Nausea and Vomiting (N/V). butalbital- 2019- Yes [id number] 1{tbl} Take 1 [facility] acetaminoph 2-19 tablet by [facility] of en-caff 00:00: mouth [place] 50-325-40 00 every 6 Medical mg tablet (six) Branch hours as needed for Pain (scale 4-6). ondansetron 2019- Yes [id number] 4mg Take 1 [facility] 4 mg 2-19 tablet by [facility] disintegrat 00:00: mouth [place] ing tablet 00 every 4 Medica [facility] (four) Branch hours as needed for Nausea and Vomiting (N/V). butalbital- 2019- Yes [id number] 1{tbl} Take 1 [facility] acetaminoph 2-19 tablet by [facility] of en-caff 00:00: mouth [place] 50-325-40 00 every 6 Medical mg tablet (six) Branch hours as needed for Pain (scale 4-6). ondansetron 2019- Yes [id number] 4mg Take 1 [facility] 4 mg 2-19 tablet by [facility] disintegrat 00:00: mouth [place] ing tablet 00 every 4 Medica l (four) Branch hours as needed for Nausea and Vomiting (N/V). butalbital- 2019-05 Yes [id number] 1{tbl} Take 1 [facility] acetaminoph 2-19 tablet by [facility] en-caff 00:00: mouth [place] 50-325-40 00 every 6 Medical mg tablet (six) Branch hours as needed for Pain (scale 4-6). ondansetron 2019-05 Yes [id number] 4mg Take 1 [facility] 4 mg 2-19 tablet by [facility] disintegrat 00:00: mouth [place] ing tablet 00 every 4 Medica l (four) Branch hours as needed for Nausea and Vomiting (N/V). butalbital- 2019-05 Yes [id number] 1{tbl} Take 1 [facility] acetaminoph 2-19 tablet by [facility] of en-caff 00:00: mouth [place] 50-325-40 00 every 6 Medical mg tablet (six) Branch hours as needed for Pain (scale 4-6). ondansetron 2019-05 Yes [id number] 4mg Take 1 [facility] 4 mg 2-19 tablet by [facility] disintegrat 00:00: mouth [place] ing tablet 00 every 4 Medica l (four) Branch hours as needed for Nausea and Vomiting (N/V). butalbital- 2019-05 Yes [id number] 1{tbl} Take 1 [facility] acetaminoph 2-19 tablet by [facility] of en-caff 00:00: mouth [place] 50-325-40 00 every 6 Medical mg tablet (six) Branch hours as needed for Pain (scale 4-6). ondansetron 2019-05 Yes [id number] 4mg Take 1 [facility] 4 mg 2-19 tablet by [facility] disintegrat 00:00: mouth [place] ing tablet 00 every 4 Medica l (four) Branch hours as needed for Nausea and Vomiting (N/V). butalbital- 2020- Yes [id number] 1{tbl} Take 1 [facility] acetaminoph 2-19 tablet by [facility] of en-caff 00:00: mouth [place] 50-325-40 00 every 6 Medical mg tablet (six) Branch hours as needed for Pain (scale 4-6). ondansetron 2019- Yes [id number] 4mg Take 1 [facility] 4 mg 2-19 tablet by [facility] disintegrat 00:00: mouth [place] ing tablet 00 every 4 Medica l (four) Branch hours as needed for Nausea and Vomiting (N/V). butalbital- 2020- Yes [id number] 1{tbl} Take 1 [facility] acetaminoph 2-19 tablet by [facility] en-caff 00:00: mouth [place] 50-325-40 00 every 6 Medical mg tablet (six) Branch hours as needed for Pain (scale 4-6). ondansetron 2019-05 Yes [id number] 4mg Take 1 [facility] 4 mg 2-19 tablet by [facility] disintegrat 00:00: mouth [place] ing tablet 00 every 4 Medica l (four) Branch hours as needed for Nausea and Vomiting (N/V). butalbital- 2019- Yes [id number] 1{tbl} Take 1 [facility] acetaminoph 2-19 tablet by [facility] of en-caff 00:00: mouth [place] 50-325-40 00 every 6 Medical mg tablet (six) Branch hours as needed for Pain (scale 4-6). ondansetron 2019-05 Yes [id number] 4mg Take 1 [facility] 4 mg 2-19 tablet by [facility] disintegrat 00:00: mouth [place] ing tablet 00 every 4 Medica l (four) Branch hours as needed for Nausea and Vomiting (N/V). butalbital- 2019- Yes [id number] 1{tbl} Take 1 [facility] acetaminoph 2-19 tablet by [facility] of en-caff 00:00: mouth [place] 50-325-40 00 every 6 Medical mg tablet (six) Branch hours as needed for Pain (scale 4-6). ondansetron 2019-05 Yes [id number] 4mg Take 1 [facility] 4 mg 2-19 tablet by [facility] disintegrat 00:00: mouth [place] ing tablet 00 every 4 Medica l (four) Branch hours as needed for Nausea and Vomiting (N/V). butalbital- 2019-05 Yes [id number] 1{tbl} Take 1 [facility] acetaminoph 2-19 tablet by [facility] of en-caff 00:00: mouth [place] 50-325-40 00 every 6 Medical mg tablet (six) Branch hours as needed for Pain (scale 4-6). ondansetron 2019-05 Yes [id number] 4mg Take 1 [facility] 4 mg 2-19 tablet by [facility] disintegrat 00:00: mouth [place] ing tablet 00 every 4 Medica l (four) Branch hours as needed for Nausea and Vomiting (N/V). butalbital- 2019-05 Yes [id number] 1{tbl} Take 1 [facility] acetaminoph 2-19 tablet by [facility] of en-caff 00:00: mouth [place] 50-325-40 00 every 6 Medical mg tablet (six) Branch hours as needed for Pain (scale 4-6). ondansetron 2019-05 Yes [id number] 4mg Take 1 [facility] 4 mg 2-19 tablet by [facility] disintegrat 00:00: mouth [place] ing tablet 00 every 4 Medica l (four) Branch hours as needed for Nausea and Vomiting (N/V). butalbital- 2019-05 Yes [id number] 1{tbl} Take 1 [facility] acetaminoph 2-19 tablet by [facility] of en-caff 00:00: mouth [place] 50-325-40 00 every 6 Medical mg tablet (six) Branch hours as needed for Pain (scale 4-6). ondansetron 2019-05 Yes [id number] 4mg Take 1 [facility] 4 mg 2-19 tablet by [facility] disintegrat 00:00: mouth [place] ing tablet 00 every 4 Medica l (four) Branch hours as needed for Nausea and Vomiting (N/V). butalbital- 2019-05 Yes [id number] 1{tbl} Take 1 [facility] acetaminoph 2-19 tablet by [facility] en-caff 00:00: mouth [place] 50-325-40 00 every 6 Medical mg tablet (six) Branch hours as needed for Pain (scale 4-6). ondansetron 2019-05 Yes [id number] 4mg Take 1 [facility] 4 mg 2-19 tablet by [facility] disintegrat 00:00: mouth [place] ing tablet 00 every 4 Medica l (four) Branch hours as needed for Nausea and Vomiting (N/V). butalbital- 2019- Yes [id number] 1{tbl} Take 1 [facility] acetaminoph 2-19 tablet by [facility] of en-caff 00:00: mouth [place] 50-325-40 00 every 6 Medical mg tablet (six) Branch hours as needed for Pain (scale 4-6). ondansetron 2019- Yes [id number] 4mg Take 1 [facility] 4 mg 2-19 tablet by [facility] disintegrat 00:00: mouth [place] ing tablet 00 every 4 Medica l (four) Branch hours as needed for Nausea and Vomiting (N/V). butalbital- 2019- Yes [id number] 1{tbl} Take 1 [facility] acetaminoph 2-19 tablet by [facility] of en-caff 00:00: mouth [place] 50-325-40 00 every 6 Medical mg tablet (six) Branch hours as needed for Pain (scale 4-6). ondansetron 2019- Yes [id number] 4mg Take 1 [facility] 4 mg 2-19 tablet by [facility] of disintegrat 00:00: mouth [place] ing tablet 00 every 4 Medica l (four) Branch hours as needed for Nausea and Vomiting (N/V). ZOLPIDEM 2020- Yes [id number] TAKE ONE [facility] 12.5 mg CR 2-07 TABLET BY [facility] of tablet 00:00: MOUTH [place] 00 EVERY Medical NIGHT AT Branch BEDTIME NEEDED FOR SLEEP ZOLPIDEM 2020- Yes [id number] TAKE ONE [facility] 12.5 mg CR 2-07 TABLET BY [facility] of tablet 00:00: MOUTH [place] 00 EVERY Medical NIGHT AT Branch BEDTIME NEEDED FOR SLEEP CYCLOBENZAP 2020- Yes [id number] TAKE ONE [facility] RINE 10 mg 2-07 TABLET BY [facility] of tablet 00:00: MOUTH [place] 00 TWICE A Medical DAY Branch NEEDED FOR MUSCLE SPASM ZOLPIDEM 2020- Yes [id number] TAKE ONE [facility] 12.5 mg CR 2-07 TABLET BY [facility] of tablet 00:00: MOUTH [place] 00 EVERY Medical NIGHT AT Branch BEDTIME NEEDED FOR SLEEP CYCLOBENZAP 2020- Yes [id number] TAKE ONE [facility] RINE 10 mg 2-07 TABLET BY [facility] of tablet 00:00: MOUTH [place] 00 TWICE A Medical DAY Branch NEEDED FOR MUSCLE SPASM ZOLPIDEM 2020- 2020- No [id number] TAKE ONE [facility] 12.5 mg CR 2-07 12-21 TABLET BY [facility] of tablet 00:00: 00:00 MOUTH [place] 00 :00 EVERY Medical NIGHT AT Branch BEDTIME NEEDED FOR SLEEP CYCLOBENZAP 2019- 2020- No [id number] TAKE ONE [facility] RINE 10 mg 2-07 12-21 TABLET BY [facility] of tablet 00:00: 00:00 MOUTH [place] 00 :00 TWICE A Medical DAY Branch NEEDED FOR MUSCLE SPASM ZOLPIDEM 2019- 2020- No [id number] TAKE ONE [facility] 12.5 mg CR 2-07 12-21 TABLET BY [facility] of tablet 00:00: 00:00 MOUTH [place] 00 :00 EVERY Medical NIGHT AT Branch BEDTIME NEEDED FOR SLEEP CYCLOBENZAP 2019-05 2020- No [id number] TAKE ONE [facility] RINE 10 mg 2-07 12-21 TABLET BY [facility] of tablet 00:00: 00:00 MOUTH [place] 00 :00 TWICE A Medical DAY Branch NEEDED FOR MUSCLE SPASM HYDROcodone 2019-05 Yes [id number] 1{tbl} Take 1 [facility] che[facility] -acetaminop 1-25 tablet by ity of hen 7.5-325 00:00: mouth [place] mg per 00 every 6 Medical tablet (six) Branch hours as needed for Pain. Indication s: chronic pain HYDROcodone 2020- Yes [id number] 1{tbl} Take 1 [facility] che[facility] -acetaminop 1-25 tablet by ity of hen 7.5-325 00:00: mouth [place] mg per 00 every 6 Medical tablet (six) Branch hours as needed for Pain. Indication s: chronic pain CYCLOBENZAP 2020- Yes [id number] TAKE ONE [facility] RINE 10 mg 1-25 TABLET BY [facility] of tablet 00:00: MOUTH [place] 00 TWICE A Medical DAY Branch NEEDED FOR MUSCLE SPASM HYDROcodone 2020- Yes [id number] 1{tbl} Take 1 [facility] che[facility] -acetaminop 1-25 tablet by [facility]y of hen 7.5-325 00:00: mouth [place] mg per 00 every 6 Medical tablet (six) Branch hours as needed for Pain. Indication s: chronic pain CYCLOBENZAP 2020- Yes [id number] TAKE ONE [facility] RINE 10 mg 1-25 TABLET BY [facility] of tablet 00:00: MOUTH [place] 00 TWICE A Medical DAY Branch NEEDED FOR MUSCLE SPASM HYDROcodone 2019-05 Yes [id number] 1{tbl} Take 1 [facility] che[facility] -acetaminop 1-25 tablet by ity of hen 7.5-325 00:00: mouth [place] mg per 00 every 6 Medical tablet (six) Branch hours as needed for Pain. Indication s: chronic pain HYDROcodone 2019-05 Yes [id number] 1{tbl} Take 1 [facility] che[facility] -acetaminop 1-25 tablet by ity of hen 7.5-325 00:00: mouth [place] mg per 00 every 6 Medical tablet (six) Branch hours as needed for Pain. Indication s: chronic pain HYDROcodone 2019-05 2020- No [id number] 1{tbl} Take 1 [facility] -acetaminop 1-25 12-21 tablet by it y of hen 7.5-325 00:00: 00:00 mouth [place] mg per 00 :00 every 6 Medical tablet (six) Branch hours as needed for Pain. Indication s: chronic pain HYDROcodone 2019-05- No [id number] 1{tbl} Take 1 [facility] n[facility] -acetaminop 1-25 12-21 tablet by it y of hen 7.5-325 00:00: 00:00 mouth [place] mg per 00 :00 every 6 Medical tablet (six) Branch hours as needed for Pain. Indication s: chronic pain CYCLOBENZAP 2019-05 2020- No [id number] TAKE ONE [facility] RINE 10 mg 1-25 12-07 TABLET BY [facility] of tablet 00:00: 00:00 MOUTH [place] 00 :00 TWICE A Medical DAY Branch NEEDED FOR MUSCLE SPASM DULOXETINE 2019-05 Yes [id number] TAKE ONE [facility] 60 mg 1-20 CAPSULE BY ity of capsule 00:00: MOUTH [place] 00 DAILY Medical Branch DULOXETINE 2020- Yes [id number] TAKE ONE [facility] 60 mg 1-20 CAPSULE BY [facility]y of capsule 00:00: MOUTH [place] 00 DAILY Medical Branch DULOXETINE 2020- Yes [id number] TAKE ONE [facility] 60 mg 1-20 CAPSULE BY [facility]y of capsule 00:00: MOUTH [place] 00 DAILY Medical Branch DULOXETINE 2020- Yes [id number] TAKE ONE [facility] 60 mg 1-20 CAPSULE BY [facility]y of capsule 00:00: MOUTH [place] 00 DAILY Medical Branch DULOXETINE 2020- Yes [id number] TAKE ONE [facility] 60 mg 1-20 CAPSULE BY [facility] of capsule 00:00: MOUTH [place] 00 DAILY Medical Branch DULOXETINE 2020-1 Yes [id number] TAKE ONE [facility] 60 mg 1-20 CAPSULE BY [facility]y of capsule 00:00: MOUTH [place] 00 DAILY Medical Branch DULOXETINE 2020-1 Yes [id number] TAKE ONE [facility] 60 mg 1-20 CAPSULE BY ity of capsule 00:00: MOUTH [place] 00 DAILY Medical Branch DULOXETINE 2020-1 Yes [id number] TAKE ONE [facility] 60 mg 1-20 CAPSULE BY ity of capsule 00:00: MOUTH [place] 00 DAILY Medical Branch DULOXETINE 2020-1 Yes [id number] TAKE ONE [facility] 60 mg 1-20 CAPSULE BY ity of capsule 00:00: MOUTH [place] 00 DAILY Medical Branch DULOXETINE 2020- Yes [id number] TAKE ONE [facility] 60 mg 1-20 CAPSULE BY ity of capsule 00:00: MOUTH [place] 00 DAILY Medical Branch DULOXETINE 2020- Yes [id number] TAKE ONE [facility] 60 mg 1-20 CAPSULE BY ity of capsule 00:00: MOUTH [place] 00 DAILY Medical Branch DULOXETINE 2020-1 Yes [id number] TAKE ONE [facility] 60 mg 1-20 CAPSULE BY ity of capsule 00:00: MOUTH [place] 00 DAILY Medical Branch DULOXETINE 2020-1 Yes [id number] TAKE ONE [facility] 60 mg 1-20 CAPSULE BY ity of capsule 00:00: MOUTH [place] 00 DAILY Medical Branch DULOXETINE 2020- Yes [id number] TAKE ONE [facility] 60 mg 1-20 CAPSULE BY ity of capsule 00:00: MOUTH [place] 00 DAILY Medical Branch DULOXETINE 2020-1 Yes [id number] TAKE ONE [facility] 60 mg 1-20 CAPSULE BY ity of capsule 00:00: MOUTH [place] 00 DAILY Medical Branch DULOXETINE 2020-1 202- No [id number] TAKE ONE [facility] 60 mg 1-20 02-26 CAPSULE BY ity of capsule 00:00: 00:00 MOUTH [place] 00 :00 DAILY Medical Branch CYCLOBENZAP 2020-1 Yes [id number] TAKE ONE [facility] RINE 10 mg 1-02 TABLET BY [facility] of tablet 00:00: MOUTH [place] 00 TWICE A Medical DAY Branch NEEDED FOR MUSCLE SPASM CYCLOBENZAP 2020- Yes [id number] TAKE ONE [facility] RINE 10 mg 1-02 TABLET BY [facility] of tablet 00:00: MOUTH [place] 00 TWICE A Medical DAY Branch NEEDED FOR MUSCLE SPASM CYCLOBENZAP 2020- Yes [id number] TAKE ONE [facility] RINE 10 mg 1-02 TABLET BY [facility]y of tablet 00:00: MOUTH [place] 00 TWICE A Medical DAY Branch NEEDED FOR MUSCLE SPASM CYCLOBENZAP 2019-05 Yes [id number] TAKE ONE [facility] RINE 10 mg 1-02 TABLET BY [facility] of tablet 00:00: MOUTH [place] 00 TWICE A Medical DAY Branch NEEDED FOR MUSCLE SPASM CYCLOBENZAP 2019-05 2020- No [id number] TAKE ONE [facility] RINE 10 mg 1-02 11-25 TABLET BY [facility] of tablet 00:00: 00:00 MOUTH [place] 00 :00 TWICE A Medical DAY Branch NEEDED FOR MUSCLE SPASM HYDROcodone 2019-05 Yes [id number] 1{tbl} Take 1 [facility] che[facility] -acetaminop 0-26 tablet by ity of hen 7.5-325 00:00: mouth [place] mg per 00 every 6 Medical tablet (six) Branch hours as needed for Pain. Indication s: chronic pain HYDROcodone 2019-05 Yes [id number] 1{tbl} Take 1 [facility] che[facility] -acetaminop 0-26 tablet by ity of hen 7.5-325 00:00: mouth [place] mg per 00 every 6 Medical tablet (six) Branch hours as needed for Pain. Indication s: chronic pain HYDROcodone 2019-05 Yes [id number] 1{tbl} Take 1 [facility] che[facility] -acetaminop 0-26 tablet by [facility]y of hen 7.5-325 00:00: mouth [place] mg per 00 every 6 Medical tablet (six) Branch hours as needed for Pain. Indication s: chronic pain HYDROcodone 2019- Yes [id number] 1{tbl} Take 1 [facility] che[facility] -acetaminop 0-26 tablet by ity of hen 7.5-325 00:00: mouth [place] mg per 00 every 6 Medical tablet (six) Branch hours as needed for Pain. Indication s: chronic pain HYDROcodone 2019-05 2020- No [id number] 1{tbl} Take 1 [facility] -acetaminop 0-26 11-25 tablet by it y of hen 7.5-325 00:00: 00:00 mouth [place] mg per 00 :00 every 6 Medical tablet (six) Branch hours as needed for Pain. Indication s: chronic pain DULOXETINE 2019- Yes [id number] TAKE ONE [facility] 60 mg 0-19 CAPSULE BY ity of capsule 00:00: MOUTH [place] 00 DAILY Medical Branch DULOXETINE 2019- Yes [id number] TAKE ONE [facility] 60 mg 0-19 CAPSULE BY [facility]y of capsule 00:00: MOUTH [place] 00 DAILY Medical Branch DULOXETINE 2020-1 Yes [id number] TAKE ONE [facility] 60 mg 0-19 CAPSULE BY [facility]y of capsule 00:00: MOUTH [place] 00 DAILY Medical Branch DULOXETINE 2020-1 2020- No [id number] TAKE ONE [facility] 60 mg 0-19 11-20 CAPSULE BY [facility]y of capsule 00:00: 00:00 MOUTH [place] 00 :00 DAILY Medical Branch ZOLPIDEM 2020-1 Yes [id number] TAKE ONE [facility] 12.5 mg CR 0-05 TABLET BY [facility] of tablet 00:00: MOUTH [place] 00 EVERY Medical NIGHT AT Branch BEDTIME NEEDED FOR SLEEP CYCLOBENZAP 2020-1 Yes [id number] TAKE ONE [facility] RINE 10 mg 0-05 TABLET BY [facility]y of tablet 00:00: MOUTH [place] 00 TWICE A Medical DAY Branch NEEDED FOR MUSCLE SPASM ZOLPIDEM 2020-1 Yes [id number] TAKE ONE [facility] 12.5 mg CR 0-05 TABLET BY [facility] of tablet 00:00: MOUTH [place] 00 EVERY Medical NIGHT AT Branch BEDTIME NEEDED FOR SLEEP CYCLOBENZAP 2020-1 Yes [id number] TAKE ONE [facility] RINE 10 mg 0-05 TABLET BY [facility] of tablet 00:00: MOUTH [place] 00 TWICE A Medical DAY Branch NEEDED FOR MUSCLE SPASM ZOLPIDEM 2020-1 Yes [id number] TAKE ONE [facility] 12.5 mg CR 0-05 TABLET BY [facility] of tablet 00:00: MOUTH [place] 00 EVERY Medical NIGHT AT Branch BEDTIME NEEDED FOR SLEEP CYCLOBENZAP 2020-1 Yes [id number] TAKE ONE [facility] RINE 10 mg 0-05 TABLET BY [facility] of tablet 00:00: MOUTH [place] 00 TWICE A Medical DAY Branch NEEDED FOR MUSCLE SPASM ZOLPIDEM 2020-1 Yes [id number] TAKE ONE [facility] 12.5 mg CR 0-05 TABLET BY [facility] of tablet 00:00: MOUTH [place] 00 EVERY Medical NIGHT AT Branch BEDTIME NEEDED FOR SLEEP ZOLPIDEM 2020-1 Yes [id number] TAKE ONE [facility] 12.5 mg CR 0-05 TABLET BY [facility] of tablet 00:00: MOUTH [place] 00 EVERY Medical NIGHT AT Branch BEDTIME NEEDED FOR SLEEP ZOLPIDEM 2020-1 Yes [id number] TAKE ONE [facility] 12.5 mg CR 0-05 TABLET BY [facility] of tablet 00:00: MOUTH [place] 00 EVERY Medical NIGHT AT Branch BEDTIME NEEDED FOR SLEEP ZOLPIDEM 2020- Yes [id number] TAKE ONE [facility] 12.5 mg CR 0-05 TABLET BY [facility] of tablet 00:00: MOUTH [place] 00 EVERY Medical NIGHT AT Branch BEDTIME NEEDED FOR SLEEP ZOLPIDEM 2020-1 Yes [id number] TAKE ONE [facility] 12.5 mg CR 0-05 TABLET BY [facility] of tablet 00:00: MOUTH [place] 00 EVERY Medical NIGHT AT Branch BEDTIME NEEDED FOR SLEEP ZOLPIDEM 2019- 2020- No [id number] TAKE ONE [facility] 12.5 mg CR 0-05 12-07 TABLET BY [facility] of tablet 00:00: 00:00 MOUTH [place] 00 :00 EVERY Medical NIGHT AT Branch BEDTIME NEEDED FOR SLEEP CYCLOBENZAP 2019- 2020- No [id number] TAKE ONE [facility] RINE 10 mg 0-05 11-02 TABLET BY [facility] of tablet 00:00: 00:00 MOUTH [place] 00 :00 TWICE A Medical DAY Branch NEEDED FOR MUSCLE SPASM HYDROcodone 2019-0 Yes [id number] 1{tbl} Take 1 [facility] che[facility] -acetaminop 9-24 tablet by ity of hen 7.5-325 00:00: mouth [place] mg per 00 every 6 Medical tablet (six) Branch hours as needed for Pain. Indication s: chronic pain HYDROcodone 2020-0 Yes [id number] 1{tbl} Take 1 [facility] che[facility] -acetaminop 9-24 tablet by [facility]y of hen 7.5-325 00:00: mouth [place] mg per 00 every 6 Medical tablet (six) Branch hours as needed for Pain. Indication s: chronic pain HYDROcodone 2020-0 Yes [id number] 1{tbl} Take 1 [facility] che[facility] -acetaminop 9-24 tablet by [facility]y of hen 7.5-325 00:00: mouth [place] mg per 00 every 6 Medical tablet (six) Branch hours as needed for Pain. Indication s: chronic pain HYDROcodone 2020-0 2020- No [id number] 1{tbl} Take 1 [facility] -acetaminop 9-24 10-26 tablet by it y of hen 7.5-325 00:00: 00:00 mouth [place] mg per 00 :00 every 6 Medical tablet (six) Branch hours as needed for Pain. Indication s: chronic pain cyclobenzap 2020-0 Yes [id number] TAKE ONE [facility] rine 10 mg 9-04 TABLET BY [facility]y of tablet 00:00: MOUTH [place] 00 TWICE A Medical DAY Branch NEEDED FOR MUSCLE SPASM cyclobenzap 2020-0 Yes [id number] TAKE ONE [facility] rine 10 mg 9-04 TABLET BY ity of tablet 00:00: MOUTH [place] 00 TWICE A Medical DAY Branch NEEDED FOR MUSCLE SPASM cyclobenzap 2020-0 2020- No [id number] TAKE ONE [facility] rine 10 mg 9-04 10-05 TABLET BY ity of tablet 00:00: 00:00 MOUTH [place] 00 :00 TWICE A Medical DAY Branch NEEDED FOR MUSCLE SPASM ondansetron 2020-0 Yes [id number] 8mg Take 1 [facility] (ZOFRAN 8-31 tablet by ity of ODT) 8 mg 00:00: mouth [place] disintegrat 00 every 8 Medic al ing tablet (eight) Branch hours as needed for Nausea and Vomiting (N/V). meclizine 2020-0 Yes [id number] 25mg Take 1 [facility] 25 mg 8-31 tablet by [facility]y of tablet 00:00: mouth 3 [place] 00 (three) Medical times Branch daily as needed for Dizziness. ondansetron 2020-0 Yes [id number] 8mg Take 1 [facility] (ZOFRAN 8-31 tablet by ity of ODT) 8 mg 00:00: mouth [place] disintegrat 00 every 8 Medic al ing tablet (eight) Branch hours as needed for Nausea and Vomiting (N/V). meclizine 2020-0 Yes [id number] 25mg Take 1 [facility] 25 mg 8-31 tablet by [facility]y of tablet 00:00: mouth 3 [place] 00 (three) Medical times Branch daily as needed for Dizziness. ondansetron 2020-0 Yes [id number] 8mg Take 1 [facility] (ZOFRAN 8-31 tablet by ity of ODT) 8 mg 00:00: mouth [place] disintegrat 00 every 8 Medic al ing tablet (eight) Branch hours as needed for Nausea and Vomiting (N/V). meclizine 2020-0 Yes [id number] 25mg Take 1 [facility] 25 mg 8-31 tablet by [facility]y of tablet 00:00: mouth 3 [place] 00 (three) Medical times Branch daily as needed for Dizziness. ondansetron 2020-0 Yes [id number] 8mg Take 1 [facility] (ZOFRAN 8-31 tablet by ity of ODT) 8 mg 00:00: mouth [place] disintegrat 00 every 8 Medic al ing tablet (eight) Branch hours as needed for Nausea and Vomiting (N/V). meclizine 2020-0 Yes [id number] 25mg Take 1 [facility] 25 mg 8-31 tablet by [facility]y of tablet 00:00: mouth 3 [place] 00 (three) Medical times Branch daily as needed for Dizziness. ondansetron 2020-0 Yes [id number] 8mg Take 1 [facility] (ZOFRAN 8-31 tablet by ity of ODT) 8 mg 00:00: mouth [place] disintegrat 00 every 8 Medic al ing tablet (eight) Branch hours as needed for Nausea and Vomiting (N/V). meclizine 2020-0 Yes [id number] 25mg Take 1 [facility] 25 mg 8-31 tablet by [facility] of tablet 00:00: mouth 3 [place] 00 (three) Medical times Branch daily as needed for Dizziness. ondansetron 2020-0 Yes [id number] 8mg Take 1 [facility] (ZOFRAN 8-31 tablet by ity of ODT) 8 mg 00:00: mouth [place] disintegrat 00 every 8 Medic al ing tablet (eight) Branch hours as needed for Nausea and Vomiting (N/V). meclizine 2020-0 Yes [id number] 25mg Take 1 [facility] 25 mg 8-31 tablet by [facility] of tablet 00:00: mouth 3 [place] 00 (three) Medical times Branch daily as needed for Dizziness. ondansetron 2020-0 Yes [id number] 8mg Take 1 [facility] (ZOFRAN 8-31 tablet by ity of ODT) 8 mg 00:00: mouth [place] disintegrat 00 every 8 Medic al ing tablet (eight) Branch hours as needed for Nausea and Vomiting (N/V). meclizine 2020-0 Yes [id number] 25mg Take 1 [facility] 25 mg 8-31 tablet by [facility] of tablet 00:00: mouth 3 [place] 00 (three) Medical times Branch daily as needed for Dizziness. ondansetron 2020-0 Yes [id number] 8mg Take 1 [facility] (ZOFRAN 8-31 tablet by ity of ODT) 8 mg 00:00: mouth [place] disintegrat 00 every 8 Medic al ing tablet (eight) Branch hours as needed for Nausea and Vomiting (N/V). meclizine 2020-0 Yes [id number] 25mg Take 1 [facility] 25 mg 8-31 tablet by [facility] of tablet 00:00: mouth 3 [place] 00 (three) Medical times Branch daily as needed for Dizziness. ondansetron 2020-0 Yes [id number] 8mg Take 1 [facility] (ZOFRAN 8-31 tablet by ity of ODT) 8 mg 00:00: mouth [place] disintegrat 00 every 8 Medic al ing tablet (eight) Branch hours as needed for Nausea and Vomiting (N/V). meclizine 2020-0 Yes [id number] 25mg Take 1 [facility] 25 mg 8-31 tablet by [facility] of tablet 00:00: mouth 3 [place] 00 (three) Medical times Branch daily as needed for Dizziness. ondansetron 2020-0 Yes [id number] 8mg Take 1 [facility] (ZOFRAN 8-31 tablet by [facility] ODT) 8 mg 00:00: mouth [place] disintegrat 00 every 8 Medic al ing tablet (eight) Branch hours as needed for Nausea and Vomiting (N/V). meclizine 2020-0 Yes [id number] 25mg Take 1 [facility] 25 mg 8-31 tablet by [facility] tablet 00:00: mouth 3 [place] 00 (three) Medical times Branch daily as needed for Dizziness. ondansetron 2020-0 Yes [id number] 8mg Take 1 [facility] (ZOFRAN 8-31 tablet by [facility] of ODT) 8 mg 00:00: mouth [place] disintegrat 00 every 8 Medic al ing tablet (eight) Branch hours as needed for Nausea and Vomiting (N/V). meclizine 2020-0 Yes [id number] 25mg Take 1 [facility] 25 mg 8-31 tablet by [facility] tablet 00:00: mouth 3 [place] 00 (three) Medical times Branch daily as needed for Dizziness. ondansetron 2020-0 Yes [id number] 8mg Take 1 [facility] (ZOFRAN 8-31 tablet by [facility] of ODT) 8 mg 00:00: mouth [place] disintegrat 00 every 8 Medic al ing tablet (eight) Branch hours as needed for Nausea and Vomiting (N/V). meclizine 2020-0 Yes [id number] 25mg Take 1 [facility] 25 mg 8-31 tablet by [facility] tablet 00:00: mouth 3 [place] 00 (three) Medical times Branch daily as needed for Dizziness. ondansetron 2020-0 Yes [id number] 8mg Take 1 [facility] (ZOFRAN 8-31 tablet by [facility] of ODT) 8 mg 00:00: mouth [place] disintegrat 00 every 8 Medic al ing tablet (eight) Branch hours as needed for Nausea and Vomiting (N/V). meclizine 2020-0 Yes [id number] 25mg Take 1 [facility] 25 mg 8-31 tablet by [facility] tablet 00:00: mouth 3 [place] 00 (three) Medical times Branch daily as needed for Dizziness. ondansetron 2020-0 Yes [id number] 8mg Take 1 [facility] (ZOFRAN 8-31 tablet by [facility] of ODT) 8 mg 00:00: mouth [place] disintegrat 00 every 8 Medic al ing tablet (eight) Branch hours as needed for Nausea and Vomiting (N/V). meclizine 2020-0 Yes [id number] 25mg Take 1 [facility] 25 mg 8-31 tablet by [facility] tablet 00:00: mouth 3 [place] 00 (three) Medical times Branch daily as needed for Dizziness. ondansetron 2020-0 Yes [id number] 8mg Take 1 [facility] (ZOFRAN 8-31 tablet by [facility] of ODT) 8 mg 00:00: mouth [place] disintegrat 00 every 8 Medic al ing tablet (eight) Branch hours as needed for Nausea and Vomiting (N/V). meclizine 2020-0 Yes [id number] 25mg Take 1 [facility] 25 mg 8-31 tablet by [facility] tablet 00:00: mouth 3 [place] 00 (three) Medical times Branch daily as needed for Dizziness. ondansetron 2020-0 Yes [id number] 8mg Take 1 [facility] (ZOFRAN 8-31 tablet by [facility] of ODT) 8 mg 00:00: mouth [place] disintegrat 00 every 8 Medic al ing tablet (eight) Branch hours as needed for Nausea and Vomiting (N/V). meclizine 2020-0 Yes [id number] 25mg Take 1 [facility] 25 mg 8-31 tablet by [facility] tablet 00:00: mouth 3 [place] 00 (three) Medical times Branch daily as needed for Dizziness. ondansetron 2020-0 Yes [id number] 8mg Take 1 [facility] (ZOFRAN 8-31 tablet by [facility] of ODT) 8 mg 00:00: mouth [place] disintegrat 00 every 8 Medic al ing tablet (eight) Branch hours as needed for Nausea and Vomiting (N/V). meclizine 2020-0 Yes [id number] 25mg Take 1 [facility] 25 mg 8-31 tablet by [facility] of tablet 00:00: mouth 3 [place] 00 (three) Medical times Branch daily as needed for Dizziness. ondansetron 2020-0 Yes [id number] 8mg Take 1 [facility] (ZOFRAN 8-31 tablet by [facility] of ODT) 8 mg 00:00: mouth [place] disintegrat 00 every 8 Medic al ing tablet (eight) Branch hours as needed for Nausea and Vomiting (N/V). meclizine 2020-0 Yes [id number] 25mg Take 1 [facility] 25 mg 8-31 tablet by [facility] of tablet 00:00: mouth 3 [place] 00 (three) Medical times Branch daily as needed for Dizziness. ondansetron 2020-0 Yes [id number] 8mg Take 1 [facility] (ZOFRAN 8-31 tablet by [facility] of ODT) 8 mg 00:00: mouth [place] disintegrat 00 every 8 Medic al ing tablet (eight) Branch hours as needed for Nausea and Vomiting (N/V). meclizine 2020-0 Yes [id number] 25mg Take 1 [facility] 25 mg 8-31 tablet by [facility] of tablet 00:00: mouth 3 [place] 00 (three) Medical times Branch daily as needed for Dizziness. ondansetron 2020-0 Yes [id number] 8mg Take 1 [facility] (ZOFRAN 8-31 tablet by [facility] of ODT) 8 mg 00:00: mouth [place] disintegrat 00 every 8 Medic al ing tablet (eight) Branch hours as needed for Nausea and Vomiting (N/V). meclizine 2020-0 Yes [id number] 25mg Take 1 [facility] 25 mg 8-31 tablet by [facility] of tablet 00:00: mouth 3 [place] 00 (three) Medical times Branch daily as needed for Dizziness. ondansetron 2020-0 Yes [id number] 8mg Take 1 [facility] (ZOFRAN 8-31 tablet by [facility] of ODT) 8 mg 00:00: mouth [place] disintegrat 00 every 8 Medic al ing tablet (eight) Branch hours as needed for Nausea and Vomiting (N/V). meclizine 2020-0 Yes [id number] 25mg Take 1 [facility] 25 mg 8-31 tablet by [facility] tablet 00:00: mouth 3 [place] 00 (three) Medical times Branch daily as needed for Dizziness. ondansetron 2020-0 Yes [id number] 8mg Take 1 [facility] (ZOFRAN 8-31 tablet by [facility] of ODT) 8 mg 00:00: mouth [place] disintegrat 00 every 8 Medic al ing tablet (eight) Branch hours as needed for Nausea and Vomiting (N/V). meclizine 2020-0 Yes [id number] 25mg Take 1 [facility] 25 mg 8-31 tablet by [facility] of tablet 00:00: mouth 3 [place] 00 (three) Medical times Branch daily as needed for Dizziness. ondansetron 2020-0 Yes [id number] 8mg Take 1 [facility] (ZOFRAN 8-31 tablet by [facility] of ODT) 8 mg 00:00: mouth [place] disintegrat 00 every 8 Medic al ing tablet (eight) Branch hours as needed for Nausea and Vomiting (N/V). meclizine 2020-0 Yes [id number] 25mg Take 1 [facility] 25 mg 8-31 tablet by [facility] of tablet 00:00: mouth 3 [place] 00 (three) Medical times Branch daily as needed for Dizziness. ondansetron 2020-0 Yes [id number] 8mg Take 1 [facility] (ZOFRAN 8-31 tablet by [facility] of ODT) 8 mg 00:00: mouth [place] disintegrat 00 every 8 Medic al ing tablet (eight) Branch hours as needed for Nausea and Vomiting (N/V). meclizine 2020-0 Yes [id number] 25mg Take 1 [facility] 25 mg 8-31 tablet by [facility] tablet 00:00: mouth 3 [place] 00 (three) Medical times Branch daily as needed for Dizziness. ondansetron 2020-0 Yes [id number] 8mg Take 1 [facility] (ZOFRAN 8-31 tablet by [facility] of ODT) 8 mg 00:00: mouth [place] disintegrat 00 every 8 Medic al ing tablet (eight) Branch hours as needed for Nausea and Vomiting (N/V). meclizine 2020-0 Yes [id number] 25mg Take 1 [facility] 25 mg 8-31 tablet by [facility] of tablet 00:00: mouth 3 [place] 00 (three) Medical times Branch daily as needed for Dizziness. ondansetron 2020-0 Yes [id number] 8mg Take 1 [facility] (ZOFRAN 8-31 tablet by [facility] of ODT) 8 mg 00:00: mouth [place] disintegrat 00 every 8 Medic al ing tablet (eight) Branch hours as needed for Nausea and Vomiting (N/V). meclizine 2020-0 Yes [id number] 25mg Take 1 [facility] 25 mg 8-31 tablet by [facility] of tablet 00:00: mouth 3 [place] 00 (three) Medical times Branch daily as needed for Dizziness. ondansetron 2020-0 Yes [id number] 8mg Take 1 [facility] (ZOFRAN 8-31 tablet by [facility] of ODT) 8 mg 00:00: mouth [place] disintegrat 00 every 8 Medic al ing tablet (eight) Branch hours as needed for Nausea and Vomiting (N/V). meclizine 2020-0 Yes [id number] 25mg Take 1 [facility] 25 mg 8-31 tablet by [facility] of tablet 00:00: mouth 3 [place] 00 (three) Medical times Branch daily as needed for Dizziness. ondansetron 2020-0 Yes [id number] 8mg Take 1 [facility] (ZOFRAN 8-31 tablet by [facility] of ODT) 8 mg 00:00: mouth [place] disintegrat 00 every 8 Medic al ing tablet (eight) Branch hours as needed for Nausea and Vomiting (N/V). meclizine 2020-0 Yes [id number] 25mg Take 1 [facility] 25 mg 8-31 tablet by [facility] tablet 00:00: mouth 3 [place] 00 (three) Medical times Branch daily as needed for Dizziness. ondansetron 2020-0 Yes [id number] 8mg Take 1 [facility] (ZOFRAN 8-31 tablet by [facility] of ODT) 8 mg 00:00: mouth [place] disintegrat 00 every 8 Medic al ing tablet (eight) Branch hours as needed for Nausea and Vomiting (N/V). meclizine 2020-0 Yes [id number] 25mg Take 1 [facility] 25 mg 8-31 tablet by [facility] tablet 00:00: mouth 3 [place] 00 (three) Medical times Branch daily as needed for Dizziness. ondansetron 2020-0 Yes [id number] 8mg Take 1 [facility] (ZOFRAN 8-31 tablet by [facility] of ODT) 8 mg 00:00: mouth [place] disintegrat 00 every 8 Medic al ing tablet (eight) Branch hours as needed for Nausea and Vomiting (N/V). meclizine 2020-0 Yes [id number] 25mg Take 1 [facility] 25 mg 8-31 tablet by [facility] of tablet 00:00: mouth 3 [place] 00 (three) Medical times Branch daily as needed for Dizziness. ondansetron 2020-0 Yes [id number] 8mg Take 1 [facility] (ZOFRAN 8-31 tablet by [facility] of ODT) 8 mg 00:00: mouth [place] disintegrat 00 every 8 Medic al ing tablet (eight) Branch hours as needed for Nausea and Vomiting (N/V). meclizine 2020-0 Yes [id number] 25mg Take 1 [facility] 25 mg 8-31 tablet by [facility] of tablet 00:00: mouth 3 [place] 00 (three) Medical times Branch daily as needed for Dizziness. ondansetron 2020-0 Yes [id number] 8mg Take 1 [facility] (ZOFRAN 8-31 tablet by [facility] of ODT) 8 mg 00:00: mouth [place] disintegrat 00 every 8 Medic al ing tablet (eight) Branch hours as needed for Nausea and Vomiting (N/V). meclizine 2020-0 Yes [id number] 25mg Take 1 [facility] 25 mg 8-31 tablet by [facility] of tablet 00:00: mouth 3 [place] 00 (three) Medical times Branch daily as needed for Dizziness. ondansetron 2020-0 Yes [id number] 8mg Take 1 [facility] (ZOFRAN 8-31 tablet by [facility] of ODT) 8 mg 00:00: mouth [place] disintegrat 00 every 8 Medic al ing tablet (eight) Branch hours as needed for Nausea and Vomiting (N/V). meclizine 2020-0 Yes [id number] 25mg Take 1 [facility] 25 mg 8-31 tablet by [facility] of tablet 00:00: mouth 3 [place] 00 (three) Medical times Branch daily as needed for Dizziness. ondansetron 2020-0 Yes [id number] 8mg Take 1 [facility] (ZOFRAN 8-31 tablet by [facility] of ODT) 8 mg 00:00: mouth [place] disintegrat 00 every 8 Medic al ing tablet (eight) Branch hours as needed for Nausea and Vomiting (N/V). meclizine 2020-0 Yes [id number] 25mg Take 1 [facility] 25 mg 8-31 tablet by [facility] of tablet 00:00: mouth 3 [place] 00 (three) Medical times Branch daily as needed for Dizziness. ondansetron 2020-0 Yes [id number] 8mg Take 1 [facility] (ZOFRAN 8-31 tablet by [facility] of ODT) 8 mg 00:00: mouth [place] disintegrat 00 every 8 Medic al ing tablet (eight) Branch hours as needed for Nausea and Vomiting (N/V). meclizine 2020-0 Yes [id number] 25mg Take 1 [facility] 25 mg 8-31 tablet by [facility] of tablet 00:00: mouth 3 [place] 00 (three) Medical times Branch daily as needed for Dizziness. ondansetron 2020-0 Yes [id number] 8mg Take 1 [facility] (ZOFRAN 8-31 tablet by [facility] of ODT) 8 mg 00:00: mouth [place] disintegrat 00 every 8 Medic al ing tablet (eight) Branch hours as needed for Nausea and Vomiting (N/V). meclizine 2020-0 Yes [id number] 25mg Take 1 [facility] 25 mg 8-31 tablet by [facility] of tablet 00:00: mouth 3 [place] 00 (three) Medical times Branch daily as needed for Dizziness. ondansetron 2020-0 Yes [id number] 8mg Take 1 [facility] (ZOFRAN 8-31 tablet by [facility] of ODT) 8 mg 00:00: mouth [place] disintegrat 00 every 8 Medic al ing tablet (eight) Branch hours as needed for Nausea and Vomiting (N/V). meclizine 2020-0 Yes [id number] 25mg Take 1 [facility] 25 mg 8-31 tablet by [facility] of tablet 00:00: mouth 3 [place] 00 (three) Medical times Branch daily as needed for Dizziness. ondansetron 2020-0 Yes [id number] 8mg Take 1 [facility] (ZOFRAN 8-31 tablet by [facility] of ODT) 8 mg 00:00: mouth [place] disintegrat 00 every 8 Medic al ing tablet (eight) Branch hours as needed for Nausea and Vomiting (N/V). meclizine 2020-0 Yes [id number] 25mg Take 1 [facility] 25 mg 8-31 tablet by [facility] of tablet 00:00: mouth 3 [place] 00 (three) Medical times Branch daily as needed for Dizziness. ondansetron 2020-0 Yes [id number] 8mg Take 1 [facility] (ZOFRAN 8-31 tablet by [facility] of ODT) 8 mg 00:00: mouth [place] disintegrat 00 every 8 Medic al ing tablet (eight) Branch hours as needed for Nausea and Vomiting (N/V). meclizine 2020-0 Yes [id number] 25mg Take 1 [facility] 25 mg 8-31 tablet by [facility] of tablet 00:00: mouth 3 [place] 00 (three) Medical times Branch daily as needed for Dizziness. ondansetron 2020-0 Yes [id number] 8mg Take 1 [facility] (ZOFRAN 8-31 tablet by [facility] of ODT) 8 mg 00:00: mouth [place] disintegrat 00 every 8 Medic al ing tablet (eight) Branch hours as needed for Nausea and Vomiting (N/V). meclizine 2020-0 Yes [id number] 25mg Take 1 [facility] 25 mg 8-31 tablet by [facility] of tablet 00:00: mouth 3 [place] 00 (three) Medical times Branch daily as needed for Dizziness. ondansetron 2020-0 Yes [id number] 8mg Take 1 [facility] (ZOFRAN 8-31 tablet by [facility] of ODT) 8 mg 00:00: mouth [place] disintegrat 00 every 8 Medic al ing tablet (eight) Branch hours as needed for Nausea and Vomiting (N/V). meclizine 2020-0 Yes [id number] 25mg Take 1 [facility] 25 mg 8-31 tablet by [facility] of tablet 00:00: mouth 3 [place] 00 (three) Medical times Branch daily as needed for Dizziness. ondansetron 2020-0 Yes [id number] 8mg Take 1 [facility] (ZOFRAN 8-31 tablet by [facility] of ODT) 8 mg 00:00: mouth [place] disintegrat 00 every 8 Medic al ing tablet (eight) Branch hours as needed for Nausea and Vomiting (N/V). meclizine 2020-0 Yes [id number] 25mg Take 1 [facility] 25 mg 8-31 tablet by [facility] of tablet 00:00: mouth 3 [place] 00 (three) Medical times Branch daily as needed for Dizziness. ondansetron 2020-0 Yes [id number] 8mg Take 1 [facility] (ZOFRAN 8-31 tablet by [facility] of ODT) 8 mg 00:00: mouth [place] disintegrat 00 every 8 Medic al ing tablet (eight) Branch hours as needed for Nausea and Vomiting (N/V). meclizine 2020-0 Yes [id number] 25mg Take 1 [facility] 25 mg 8-31 tablet by [facility] of tablet 00:00: mouth 3 [place] 00 (three) Medical times Branch daily as needed for Dizziness. ondansetron 2020-0 Yes [id number] 8mg Take 1 [facility] (ZOFRAN 8-31 tablet by [facility] of ODT) 8 mg 00:00: mouth [place] disintegrat 00 every 8 Medic al ing tablet (eight) Branch hours as needed for Nausea and Vomiting (N/V). meclizine 2020-0 Yes [id number] 25mg Take 1 [facility] 25 mg 8-31 tablet by [facility] of tablet 00:00: mouth 3 [place] 00 (three) Medical times Branch daily as needed for Dizziness. ondansetron 2020-0 Yes [id number] 8mg Take 1 [facility] (ZOFRAN 8-31 tablet by [facility] of ODT) 8 mg 00:00: mouth [place] disintegrat 00 every 8 Medic al ing tablet (eight) Branch hours as needed for Nausea and Vomiting (N/V). meclizine 2020-0 Yes [id number] 25mg Take 1 [facility] 25 mg 8-31 tablet by [facility] of tablet 00:00: mouth 3 [place] 00 (three) Medical times Branch daily as needed for Dizziness. ondansetron 2020-0 Yes [id number] 8mg Take 1 [facility] (ZOFRAN 8-31 tablet by [facility]y of ODT) 8 mg 00:00: mouth [place] disintegrat 00 every 8 Medic al ing tablet (eight) Branch hours as needed for Nausea and Vomiting (N/V). meclizine 2020-0 Yes [id number] 25mg Take 1 [facility] 25 mg 8-31 tablet by [facility] of tablet 00:00: mouth 3 [place] 00 (three) Medical times Branch daily as needed for Dizziness. ondansetron 2020-0 Yes [id number] 8mg Take 1 [facility] (ZOFRAN 8-31 tablet by [facility]y of ODT) 8 mg 00:00: mouth [place] disintegrat 00 every 8 Medic al ing tablet (eight) Branch hours as needed for Nausea and Vomiting (N/V). meclizine 2020-0 Yes [id number] 25mg Take 1 [facility] 25 mg 8-31 tablet by [facility] of tablet 00:00: mouth 3 [place] 00 (three) Medical times Branch daily as needed for Dizziness. ondansetron 2020-0 Yes [id number] 8mg Take 1 [facility] (ZOFRAN 8-31 tablet by [facility] of ODT) 8 mg 00:00: mouth [place] disintegrat 00 every 8 Medic al ing tablet (eight) Branch hours as needed for Nausea and Vomiting (N/V). meclizine 2020-0 Yes [id number] 25mg Take 1 [facility] 25 mg 8-31 tablet by [facility] of tablet 00:00: mouth 3 [place] 00 (three) Medical times Branch daily as needed for Dizziness. ondansetron 2020-0 Yes [id number] 8mg Take 1 [facility] (ZOFRAN 8-31 tablet by ity of ODT) 8 mg 00:00: mouth [place] disintegrat 00 every 8 Medic al ing tablet (eight) Branch hours as needed for Nausea and Vomiting (N/V). meclizine 2020-0 Yes [id number] 25mg Take 1 [facility] 25 mg 8-31 tablet by [facility] of tablet 00:00: mouth 3 [place] 00 (three) Medical times Branch daily as needed for Dizziness. HYDROcodone 2019-0 Yes [id number] 1{tbl} Take 1 [facility] -acetaminop 8-24 tablet by [facility] of hen 7.5-325 00:00: mouth [place] mg per 00 every 6 Medical tablet (six) Branch hours as needed for Pain. Indication s: chronic pain HYDROcodone 2020-0 Yes [id number] 1{tbl} Take 1 [facility] -acetaminop 8-24 tablet by ity of hen 7.5-325 00:00: mouth [place] mg per 00 every 6 Medical tablet (six) Branch hours as needed for Pain. Indication s: chronic pain HYDROcodone 2020-0 Yes [id number] 1{tbl} Take 1 [facility] che[facility] -acetaminop 8-24 tablet by [facility]y of hen 7.5-325 00:00: mouth [place] mg per 00 every 6 Medical tablet (six) Branch hours as needed for Pain. Indication s: chronic pain HYDROcodone 2019-0 2020- No [id number] 1{tbl} Take 1 [facility] -acetaminop 8-24 09-24 tablet by it y of hen 7.5-325 00:00: 00:00 mouth [place] mg per 00 :00 every 6 Medical tablet (six) Branch hours as needed for Pain. Indication s: chronic pain DULOXETINE 2020-0 Yes [id number] TAKE ONE [facility] 60 mg 7-29 CAPSULE BY it[facility] of capsule 00:00: MOUTH [place] 00 DAILY Medical Branch cyclobenzap 2020-0 Yes [id number] TAKE ONE [facility] rine 10 mg 7-29 TABLET BY [facility] of tablet 00:00: MOUTH [place] 00 TWICE A Medical DAY Branch NEEDED FOR MUSCLE SPASMS DULOXETINE 2020-0 Yes [id number] TAKE ONE [facility] 60 mg 7-29 CAPSULE BY [facility]y of capsule 00:00: MOUTH [place] 00 DAILY Medical Branch cyclobenzap 2020-0 Yes [id number] TAKE ONE [facility] rine 10 mg 7-29 TABLET BY [facility] of tablet 00:00: MOUTH [place] 00 TWICE A Medical DAY Branch NEEDED FOR MUSCLE SPASMS DULOXETINE 2020-0 Yes [id number] TAKE ONE [facility] 60 mg 7-29 CAPSULE BY it[facility] of capsule 00:00: MOUTH [place] 00 DAILY Medical Branch cyclobenzap 2020-0 Yes [id number] TAKE ONE [facility] rine 10 mg 7-29 TABLET BY [facility] of tablet 00:00: MOUTH [place] 00 TWICE A Medical DAY Branch NEEDED FOR MUSCLE SPASMS DULOXETINE 2020-0 Yes [id number] TAKE ONE [facility] 60 mg 7-29 CAPSULE BY [facility] of capsule 00:00: MOUTH [place] 00 DAILY Medical Branch DULOXETINE 2020-0 Yes [id number] TAKE ONE [facility] 60 mg 7-29 CAPSULE BY [facility] of capsule 00:00: MOUTH [place] 00 DAILY Medical Branch DULOXETINE 2020-0 Yes [id number] TAKE ONE [facility] 60 mg 7-29 CAPSULE BY [facility] of capsule 00:00: MOUTH [place] 00 DAILY Medical Branch DULOXETINE 2020-0 2020- No [id number] TAKE ONE [facility] 60 mg 7-29 10-19 CAPSULE BY [facility] of capsule 00:00: 00:00 MOUTH [place] 00 :00 DAILY Medical Branch cyclobenzap 2020-0 2020- No [id number] TAKE ONE [facility] rine 10 mg 7-29 09-04 TABLET BY [facility] of tablet 00:00: 00:00 MOUTH [place] 00 :00 TWICE A Medical DAY Branch NEEDED FOR MUSCLE SPASMS HYDROcodone 2020-0 Yes [id number] 1{tbl} Take 1 [facility] -acetaminop 7-22 tablet by ity of hen 7.5-325 00:00: mouth [place] mg per 00 every 6 Medical tablet (six) Branch hours as needed for Pain. Indication s: chronic pain HYDROcodone 2020-0 Yes [id number] 1{tbl} Take 1 [facility] che[facility] -acetaminop 7-22 tablet by ity of hen 7.5-325 00:00: mouth [place] mg per 00 every 6 Medical tablet (six) Branch hours as needed for Pain. Indication s: chronic pain HYDROcodone 2020-0 2020- No [id number] 1{tbl} Take 1 [facility] -acetaminop 7-22 08-24 tablet by it y of hen 7.5-325 00:00: 00:00 mouth [place] mg per 00 :00 every 6 Medical tablet (six) Branch hours as needed for Pain. Indication s: chronic pain naproxen 2020-0 2020- No [id number] 500mg Take 1 [facility] 500 mg -07 01- 80965 tablet by [facility] of tablet 00:00: 04:59 mouth 2 [place] 00 :00 (two) Medical times Branch daily as needed for Pain (scale 4-6) for up to 30 days. naproxen 2020-0 2020- No [id number] 500mg Take 1 [facility] 500 mg 12-07- 86082 tablet by [facility] of tablet 00:00: 04:59 mouth 2 [place] 00 :00 (two) Medical times Branch daily as needed for Pain (scale 4-6) for up to 30 days. naproxen 2020-0 2020- No [id number] 500mg Take 1 [facility] 500 mg 12-07 [id number] tablet by [facility] of tablet 00:00: 04:59 mouth 2 [place] 00 :00 (two) Medical times Branch daily as needed for Pain (scale 4-6) for up to 30 days. methylPREDN 2020-0 2020- No [id number] Take by [facility] ISolone 4 12-07 [id number] mouth ity of mg tablets 00:00: 04:59 SEE-INSTRU [place] 00 :00 CTIONS for Medical 6 days. Branch follow package directions methylPREDN 2020-0 2020- No [id number] Take by [facility] ISolone 4 12-07 [id number] mouth ity of mg tablets 00:00: 04:59 SEE-INSTRU [place] 00 :00 CTIONS for Medical 6 days. Branch follow package directions cyclobenzap 2019-0 Yes [id number] TAKE ONE [facility] rine 10 mg 7-03 TABLET BY ity of tablet 00:00: MOUTH [place] 00 TWICE A Medical DAY Branch NEEDED FOR MUSCLE SPAMS cyclobenzap 2020-0 Yes [id number] TAKE ONE [facility] rine 10 mg 7-03 TABLET BY ity of tablet 00:00: MOUTH [place] 00 TWICE A Medical DAY Branch NEEDED FOR MUSCLE SPAMS cyclobenzap 2020-0 Yes [id number] TAKE ONE [facility] rine 10 mg 7-03 TABLET BY [facility]y of tablet 00:00: MOUTH [place] 00 TWICE A Medical DAY Branch NEEDED FOR MUSCLE SPAMS cyclobenzap 2020-0 Yes [id number] TAKE ONE [facility] rine 10 mg 7-03 TABLET BY [facility]y of tablet 00:00: MOUTH [place] 00 TWICE A Medical DAY Branch NEEDED FOR MUSCLE SPAMS cyclobenzap 2020-0 Yes [id number] TAKE ONE [facility] rine 10 mg 7-03 TABLET BY [facility]y of tablet 00:00: MOUTH [place] 00 TWICE A Medical DAY Branch NEEDED FOR MUSCLE SPAMS cyclobenzap 2020-0 2020- No [id number] TAKE ONE [facility] rine 10 mg 7-03 07-29 TABLET BY ity of tablet 00:00: 00:00 MOUTH [place] 00 :00 TWICE A Medical DAY Branch NEEDED FOR MUSCLE SPAMS zolpidem 2020-0 Yes [id number] 12.5mg Take 1 [facility] 12.5 mg CR 6-29 tablet by [facility]y of tablet 00:00: mouth at [place] 00 bedtime as Medical needed for Branch Sleep. zolpidem 2020-0 Yes [id number] 12.5mg Take 1 [facility] 12.5 mg CR 6-29 tablet by [facility]y of tablet 00:00: mouth at [place] 00 bedtime as Medical needed for Branch Sleep. zolpidem 2020-0 Yes [id number] 12.5mg Take 1 [facility] 12.5 mg CR 6-29 tablet by ity of tablet 00:00: mouth at [place] 00 bedtime as Medical needed for Branch Sleep. zolpidem 2020-0 Yes [id number] 12.5mg Take 1 [facility] 12.5 mg CR 6-29 tablet by [facility]y of tablet 00:00: mouth at [place] 00 bedtime as Medical needed for Branch Sleep. zolpidem 2020-0 Yes [id number] 12.5mg Take 1 [facility] 12.5 mg CR 6-29 tablet by [facility]y of tablet 00:00: mouth at [place] 00 bedtime as Medical needed for Branch Sleep. zolpidem 2020-0 Yes [id number] 12.5mg Take 1 [facility] 12.5 mg CR 6-29 tablet by [facility]y of tablet 00:00: mouth at [place] 00 bedtime as Medical needed for Branch Sleep. zolpidem 2020-0 Yes [id number] 12.5mg Take 1 [facility] 12.5 mg CR 6-29 tablet by [facility]y of tablet 00:00: mouth at [place] 00 bedtime as Medical needed for Branch Sleep. zolpidem 2020-0 Yes [id number] 12.5mg Take 1 [facility] 12.5 mg CR 6-29 tablet by [facility]y of tablet 00:00: mouth at [place] 00 bedtime as Medical needed for Branch Sleep. zolpidem 2020-0 Yes [id number] 12.5mg Take 1 [facility] 12.5 mg CR 6-29 tablet by [facility]y of tablet 00:00: mouth at [place] 00 bedtime as Medical needed for Branch Sleep. zolpidem 2020-0 Yes [id number] 12.5mg Take 1 [facility] 12.5 mg CR 6-29 tablet by [facility]y of tablet 00:00: mouth at [place] 00 bedtime as Medical needed for Branch Sleep. zolpidem 2020-0 Yes [id number] 12.5mg Take 1 [facility] 12.5 mg CR 6-29 tablet by [facility]y of tablet 00:00: mouth at [place] 00 bedtime as Medical needed for Branch Sleep. zolpidem 2019-0 2020- No [id number] 12.5mg Take 1 [facility] 12.5 mg CR 6-29 10-05 tablet by [facility]y of tablet 00:00: 00:00 mouth at [place] 00 :00 bedtime as Medical needed for Branch Sleep. HYDROcodone 2020-0 Yes [id number] 1{tbl} Take 1 [facility] -acetaminop 6-22 tablet by ity of hen 7.5-325 00:00: mouth [place] mg per 00 every 6 Medical tablet (six) Branch hours as needed for Pain. HYDROcodone 2020-0 Yes [id number] 1{tbl} Take 1 [facility] -acetaminop 6-22 tablet by ity of hen 7.5-325 00:00: mouth [place] mg per 00 every 6 Medical tablet (six) Branch hours as needed for Pain. HYDROcodone 2020-0 Yes [id number] 1{tbl} Take 1 [facility] -acetaminop 6-22 tablet by ity of hen 7.5-325 00:00: mouth [place] mg per 00 every 6 Medical tablet (six) Branch hours as needed for Pain. HYDROcodone 2020-0 Yes [id number] 1{tbl} Take 1 [facility] -acetaminop 6-22 tablet by ity of hen 7.5-325 00:00: mouth [place] mg per 00 every 6 Medical tablet (six) Branch hours as needed for Pain. HYDROcodone 2020-0 Yes [id number] 1{tbl} Take 1 [facility] -acetaminop 6-22 tablet by ity of hen 7.5-325 00:00: mouth [place] mg per 00 every 6 Medical tablet (six) Branch hours as needed for Pain. HYDROcodone 2020-0 Yes [id number] 1{tbl} Take 1 [facility] -acetaminop 6-22 tablet by ity of hen 7.5-325 00:00: mouth [place] mg per 00 every 6 Medical tablet (six) Branch hours as needed for Pain. HYDROcodone 2019-0 2020- No [id number] 1{tbl} Take 1 [facility] -acetaminop 6-22 07-22 tablet by it y of hen 7.5-325 00:00: 00:00 mouth [place] mg per 00 :00 every 6 Medical tablet (six) Branch hours as needed for Pain. metoprolol 2020-0 Yes [id number] 50mg Take 1 [facility] succinate 5-05 tablet by [facility] o f XL 50 mg 24 00:00: mouth [place] hr tablet 00 daily. [facility] methylPREDN 2019-0 Yes [id number] 84mg Take 21 [facility] ISolone 5-05 tablets by [facility] of (MEDROL, 00:00: mouth [place] GIORGIO,) 4 mg 00 SEE-INSTRU Med ical tablets CTIONS. Branch follow package directions HYDROcodone 2020-0 Yes [id number] 1{tbl} Take 1 [facility] -acetaminop 5-05 tablet by [facility] of hen 7.5-325 00:00: mouth [place] mg per 00 every 6 Medical tablet (six) Branch hours as needed for Pain. cyclobenzap 2020-0 Yes [id number] TAKE ONE [facility] rine 10 mg 5-05 TABLET BY [facility] of tablet 00:00: MOUTH [place] 00 TWICE A Medical DAY Branch NEEDED FOR MUSCLE SPASMS eszopiclone 2020-0 Yes [id number] 3mg Take 1 [facility] 3 mg tablet 5-05 tablet by [facility] of 00:00: mouth at [place] 00 bedtime. [facility] DULoxetine 2020-0 Yes [id number] 60mg Take 1 [facility] 60 mg 5-05 capsule by [facility] of capsule 00:00: mouth [place] 00 daily. [facility] metoprolol 2020-0 Yes [id number] 50mg Take 1 [facility] succinate 5-05 tablet by [facility] o f XL 50 mg 24 00:00: mouth [place] hr tablet 00 daily. [facility] methylPREDN 2020-0 Yes [id number] 84mg Take 21 [facility] ISolone 5-05 tablets by [facility] of (MEDROL, 00:00: mouth [place] GIORGIO,) 4 mg 00 SEE-INSTRU Med ical tablets CTIONS. Branch follow package directions cyclobenzap 2020-0 Yes [id number] TAKE ONE [facility] rine 10 mg 5-05 TABLET BY [facility] of tablet 00:00: MOUTH [place] 00 TWICE A Medical DAY Branch NEEDED FOR MUSCLE SPASMS eszopiclone 2020-0 Yes [id number] 3mg Take 1 [facility] 3 mg tablet 5-05 tablet by [facility] of 00:00: mouth at [place] 00 bedtime. [facility] DULoxetine 2020-0 Yes [id number] 60mg Take 1 [facility] 60 mg 5-05 capsule by [facility] of capsule 00:00: mouth [place] 00 daily. [facility] metoprolol 2020-0 Yes [id number] 50mg Take 1 [facility] succinate 5-05 tablet by [facility] o f XL 50 mg 24 00:00: mouth [place] hr tablet 00 daily. [facility] methylPREDN 2020-0 Yes [id number] 84mg Take 21 [facility] ISolone 5-05 tablets by [facility] of (MEDROL, 00:00: mouth [place] GIORGIO,) 4 mg 00 SEE-INSTRU Med ical tablets CTIONS. Branch follow package directions cyclobenzap 2020-0 Yes [id number] TAKE ONE [facility] rine 10 mg 5-05 TABLET BY [facility] of tablet 00:00: MOUTH [place] 00 TWICE A Medical DAY Branch NEEDED FOR MUSCLE SPASMS eszopiclone 2020-0 Yes [id number] 3mg Take 1 [facility] 3 mg tablet 5-05 tablet by [facility] of 00:00: mouth at [place] 00 bedtime. [facility] DULoxetine 2020-0 Yes [id number] 60mg Take 1 [facility] 60 mg 5-05 capsule by [facility] of capsule 00:00: mouth [place] 00 daily. [facility] metoprolol 2020-0 Yes [id number] 50mg Take 1 [facility] succinate 5-05 tablet by [facility] o f XL 50 mg 24 00:00: mouth [place] hr tablet 00 daily. [facility] methylPREDN 2020-0 Yes [id number] 84mg Take 21 [facility] ISolone 5-05 tablets by [facility] of (MEDROL, 00:00: mouth [place] GIORGIO,) 4 mg 00 SEE-INSTRU Med ical tablets CTIONS. Branch follow package directions cyclobenzap 2020-0 Yes [id number] TAKE ONE [facility] rine 10 mg 5-05 TABLET BY [facility] of tablet 00:00: MOUTH [place] 00 TWICE A Medical DAY Branch NEEDED FOR MUSCLE SPASMS DULoxetine 2020-0 Yes [id number] 60mg Take 1 [facility] 60 mg 5-05 capsule by [facility] of capsule 00:00: mouth [place] 00 daily. [facility] metoprolol 2020-0 Yes [id number] 50mg Take 1 [facility] succinate 5-05 tablet by [facility] o f XL 50 mg 24 00:00: mouth [place] hr tablet 00 daily. [facility] methylPREDN 2020-0 Yes [id number] 84mg Take 21 [facility] ISolone 5-05 tablets by [facility] of (MEDROL, 00:00: mouth [place] GIORGIO,) 4 mg 00 SEE-INSTRU Med ical tablets CTIONS. Branch follow package directions DULoxetine 2020-0 Yes [id number] 60mg Take 1 [facility] 60 mg 5-05 capsule by [facility] of capsule 00:00: mouth [place] 00 daily. [facility] metoprolol 2020-0 Yes [id number] 50mg Take 1 [facility] succinate 5-05 tablet by [facility] o f XL 50 mg 24 00:00: mouth [place] hr tablet 00 daily. [facility] methylPREDN 2020-0 Yes [id number] 84mg Take 21 [facility] ISolone 5-05 tablets by [facility] of (MEDROL, 00:00: mouth [place] GIORGIO,) 4 mg 00 SEE-INSTRU Med ical tablets CTIONS. Branch follow package directions DULoxetine 2020-0 Yes [id number] 60mg Take 1 [facility] 60 mg 5-05 capsule by [facility] of capsule 00:00: mouth [place] 00 daily. [facility] metoprolol 2020-0 Yes [id number] 50mg Take 1 [facility] succinate 5-05 tablet by [facility] o f XL 50 mg 24 00:00: mouth [place] hr tablet 00 daily. [facility] methylPREDN 2020-0 Yes [id number] 84mg Take 21 [facility] ISolone 5-05 tablets by [facility] of (MEDROL, 00:00: mouth [place] GIORGIO,) 4 mg 00 SEE-INSTRU Med ical tablets CTIONS. Branch follow package directions DULoxetine 2020-0 Yes [id number] 60mg Take 1 [facility] 60 mg 5-05 capsule by [facility] of capsule 00:00: mouth [place] 00 daily. [facility] metoprolol 2020-0 Yes [id number] 50mg Take 1 [facility] succinate 5-05 tablet by [facility] o f XL 50 mg 24 00:00: mouth [place] hr tablet 00 daily. [facility] DULoxetine 2020-0 Yes [id number] 60mg Take 1 [facility] 60 mg 5-05 capsule by [facility] of capsule 00:00: mouth [place] 00 daily. [facility] metoprolol 2020-0 Yes [id number] 50mg Take 1 [facility] succinate 5-05 tablet by [facility] o f XL 50 mg 24 00:00: mouth [place] hr tablet 00 daily. [facility] DULoxetine 2020-0 Yes [id number] 60mg Take 1 [facility] 60 mg 5-05 capsule by [facility] of capsule 00:00: mouth [place] 00 daily. [facility] metoprolol 2020-0 Yes [id number] 50mg Take 1 [facility] succinate 5-05 tablet by [facility] o f XL 50 mg 24 00:00: mouth [place] hr tablet 00 daily. [facility] metoprolol 2020-0 Yes [id number] 50mg Take 1 [facility] succinate 5-05 tablet by [facility] o f XL 50 mg 24 00:00: mouth [place] hr tablet 00 daily. [facility] metoprolol 2020-0 Yes [id number] 50mg Take 1 [facility] succinate 5-05 tablet by [facility] o f XL 50 mg 24 00:00: mouth [place] hr tablet 00 daily. [facility] metoprolol 2020-0 Yes [id number] 50mg Take 1 [facility] succinate 5-05 tablet by [facility] o f XL 50 mg 24 00:00: mouth [place] hr tablet 00 daily. [facility] metoprolol 2020-0 Yes [id number] 50mg Take 1 [facility] succinate 5-05 tablet by [facility] o f XL 50 mg 24 00:00: mouth [place] hr tablet 00 daily. [facility] metoprolol 2020-0 Yes [id number] 50mg Take 1 [facility] succinate 5-05 tablet by [facility] o f XL 50 mg 24 00:00: mouth [place] hr tablet 00 daily. [facility] metoprolol 2020-0 Yes [id number] 50mg Take 1 [facility] succinate 5-05 tablet by [facility] o f XL 50 mg 24 00:00: mouth [place] hr tablet 00 daily. [facility] metoprolol 2020-0 Yes [id number] 50mg Take 1 [facility] succinate 5-05 tablet by [facility] o f XL 50 mg 24 00:00: mouth [place] hr tablet 00 daily. [facility] metoprolol 2020-0 Yes [id number] 50mg Take 1 [facility] succinate 5-05 tablet by [facility] o f XL 50 mg 24 00:00: mouth [place] hr tablet 00 daily. [facility] metoprolol 2020-0 Yes [id number] 50mg Take 1 [facility] succinate 5-05 tablet by [facility] o f XL 50 mg 24 00:00: mouth [place] hr tablet 00 daily. [facility] metoprolol 2020-0 Yes [id number] 50mg Take 1 [facility] succinate 5-05 tablet by [facility] o f XL 50 mg 24 00:00: mouth [place] hr tablet 00 daily. [facility] metoprolol 2020-0 Yes [id number] 50mg Take 1 [facility] succinate 5-05 tablet by [facility] o f XL 50 mg 24 00:00: mouth [place] hr tablet 00 daily. [facility] metoprolol 2020-0 Yes [id number] 50mg Take 1 [facility] succinate 5-05 tablet by [facility] o f XL 50 mg 24 00:00: mouth [place] hr tablet 00 daily. [facility] metoprolol 2020-0 Yes [id number] 50mg Take 1 [facility] succinate 5-05 tablet by [facility] o f XL 50 mg 24 00:00: mouth [place] hr tablet 00 daily. [facility] metoprolol 2020-0 Yes [id number] 50mg Take 1 [facility] succinate 5-05 tablet by [facility] o f XL 50 mg 24 00:00: mouth [place] hr tablet 00 daily. [facility] metoprolol 2020-0 Yes [id number] 50mg Take 1 [facility] succinate 5-05 tablet by [facility] o f XL 50 mg 24 00:00: mouth [place] hr tablet 00 daily. [facility] metoprolol 2019- No [id number] 50mg Take 1 [facility] succinate 5-05 12-21 tablet by [facility] XL 50 mg 24 00:00: 00:00 mouth [place] hr tablet 00 :00 daily. [facility] metoprolol 2019- No [id number] 50mg Take 1 [facility] succinate 5-05 12-21 tablet by [facility] XL 50 mg 24 00:00: 00:00 mouth [place] hr tablet 00 :00 daily. [facility] DULoxetine 2019- No [id number] 60mg Take 1 [facility] 60 mg -09 27-29 capsule by [facility] of capsule 00:00: 00:00 mouth [place] 00 :00 daily. [facility] methylPREDN 2019-2019- No [id number] 84mg Take 21 [facility] ISolone 5-09 27-17 tablets by ity o f (MEDROL, 00:00: 00:00 mouth [place] GIORGIO,) 4 mg 00 :00 SEE-INSTRU Med ical tablets CTIONS. Branch follow package directions cyclobenzap 2019- No [id number] TAKE ONE [facility] rine 10 mg 5-09 27-03 TABLET BY [facility] of tablet 00:00: 00:00 MOUTH [place] 00 :00 TWICE A Medical DAY Branch NEEDED FOR MUSCLE SPASMS eszopiclone 2019- No [id number] 3mg Take 1 [facility] 3 mg tablet 09-25-29 tablet by it y of 00:00: 00:00 mouth at [place] 00 :00 bedtime. [facility] HYDROcodone 2019- No [id number] 1{tbl} Take 1 [facility] -acetaminop 5-05 06-22 tablet by it y of hen 7.5-325 00:00: 00:00 mouth [place] mg per 00 :00 every 6 Medical tablet (six) Branch hours as needed for Pain. HYDROcodone Yes [id number] 1{tbl} Take 1 [facility] -acetaminop 4-20 tablet by [facility] of hen 7.5-325 00:00: mouth [place] mg per 00 every 6 Medical tablet (six) Branch hours as needed for Pain. cyclobenzap Yes [id number] TAKE ONE [facility] rine 10 mg 4-20 TABLET BY ity of tablet 00:00: MOUTH [place] 00 TWICE A Medical DAY Branch NEEDED FOR MUSCLE SPASMS HYDROcodone 2020- No [id number] 1{tbl} Take 1 [facility] -acetaminop 4-20 05-05 tablet by it y of hen 7.5-325 00:00: 00:00 mouth [place] mg per 00 :00 every 6 Medical tablet (six) Branch hours as needed for Pain. cyclobenzap 2019- No [id number] TAKE ONE [facility] rine 10 mg 4-20 05-05 TABLET BY ity of tablet 00:00: 00:00 MOUTH [place] 00 :00 TWICE A Medical DAY Branch NEEDED FOR MUSCLE SPASMS metoprolol Yes [id number] 50mg Take 1 [facility] n[facility] succinate 4-14 tablet by ity o f XL 50 mg 24 00:00: mouth [place] hr tablet 00 daily. [facility] escitalopra Yes [id number] 20mg Take 1 [facility] m oxalate 4-14 tablet by ity o f 20 mg 00:00: mouth [place] tablet 00 daily. [facility] metoprolol Yes [id number] 50mg Take 1 [facility] succinate 4-14 tablet by [facility] o f XL 50 mg 24 00:00: mouth [place] hr tablet 00 daily. [facility] escitalopra Yes [id number] 20mg Take 1 [facility] m oxalate 4-14 tablet by [facility] o f 20 mg 00:00: mouth [place] tablet 00 daily. [facility] metoprolol Yes [id number] 50mg Take 1 [facility] succinate 4-14 tablet by ity o f XL 50 mg 24 00:00: mouth [place] hr tablet 00 daily. [facility] escitalopra Yes [id number] 20mg Take 1 [facility] m oxalate 4-14 tablet by it[facility] o f 20 mg 00:00: mouth [place] tablet 00 daily. [facility] metoprolol 2020- No [id number] 50mg Take 1 [facility] succinate 4-14 05-05 tablet by [facility] of XL 50 mg 24 00:00: 00:00 mouth [place] hr tablet 00 :00 daily. [facility] escitalopra 2020- No [id number] 20mg Take 1 [facility] m oxalate 4-14 05-05 tablet by ity of 20 mg 00:00: 00:00 mouth [place] tablet 00 :00 daily. [facility] HYDROcodone 2019- Yes [id number] 1{tbl} Take 1 [facility] -acetaminop 3-20 tablet by ity of hen 7.5-325 00:00: mouth [place] mg per 00 every 6 Medical tablet (six) Branch hours as needed for Pain. zolpidem 2020-0 Yes [id number] TAKE ONE [facility] 12.5 mg CR 3-20 TABLET BY ity of tablet 00:00: MOUTH AT [place] 00 BEDTIME Medical NEEDED FOR Branch SLEEP HYDROcodone 2020-0 Yes [id number] 1{tbl} Take 1 [facility] -acetaminop 3-20 tablet by ity of hen 7.5-325 00:00: mouth [place] mg per 00 every 6 Medical tablet (six) Branch hours as needed for Pain. zolpidem 2020-0 Yes [id number] TAKE ONE [facility] 12.5 mg CR 3-20 TABLET BY ity of tablet 00:00: MOUTH AT [place] 00 BEDTIME Medical NEEDED FOR Branch SLEEP HYDROcodone 2020-0 Yes [id number] 1{tbl} Take 1 [facility] -acetaminop 3-20 tablet by ity of hen 7.5-325 00:00: mouth [place] mg per 00 every 6 Medical tablet (six) Branch hours as needed for Pain. zolpidem 2020-0 Yes [id number] TAKE ONE [facility] 12.5 mg CR 3-20 TABLET BY ity of tablet 00:00: MOUTH AT [place] 00 BEDTIME Medical NEEDED FOR Branch SLEEP HYDROcodone 2020-0 Yes [id number] 1{tbl} Take 1 [facility] -acetaminop 3-20 tablet by ity of hen 7.5-325 00:00: mouth [place] mg per 00 every 6 Medical tablet (six) Branch hours as needed for Pain. zolpidem 2020-0 Yes [id number] TAKE ONE [facility] 12.5 mg CR 3-20 TABLET BY ity of tablet 00:00: MOUTH AT [place] 00 BEDTIME Medical NEEDED FOR Branch SLEEP HYDROcodone 2020-0 Yes [id number] 1{tbl} Take 1 [facility] -acetaminop 3-20 tablet by ity of hen 7.5-325 00:00: mouth [place] mg per 00 every 6 Medical tablet (six) Branch hours as needed for Pain. zolpidem 2020-0 Yes [id number] TAKE ONE [facility] 12.5 mg CR 3-20 TABLET BY ity of tablet 00:00: MOUTH AT [place] 00 BEDTIME Medical NEEDED FOR Branch SLEEP HYDROcodone 2020-0 Yes [id number] 1{tbl} Take 1 [facility] -acetaminop 3-20 tablet by ity of hen 7.5-325 00:00: mouth [place] mg per 00 every 6 Medical tablet (six) Branch hours as needed for Pain. zolpidem 2020-0 Yes [id number] TAKE ONE [facility] 12.5 mg CR 3-20 TABLET BY ity of tablet 00:00: MOUTH AT [place] 00 BEDTIME Medical NEEDED FOR Branch SLEEP HYDROcodone 2020-0 Yes [id number] 1{tbl} Take 1 [facility] -acetaminop 3-20 tablet by ity of hen 7.5-325 00:00: mouth [place] mg per 00 every 6 Medical tablet (six) Branch hours as needed for Pain. zolpidem 2020-0 Yes [id number] TAKE ONE [facility] 12.5 mg CR 3-20 TABLET BY ity of tablet 00:00: MOUTH AT [place] 00 BEDTIME Medical NEEDED FOR Branch SLEEP HYDROcodone 2020-0 Yes [id number] 1{tbl} Take 1 [facility] -acetaminop 3-20 tablet by ity of hen 7.5-325 00:00: mouth [place] mg per 00 every 6 Medical tablet (six) Branch hours as needed for Pain. zolpidem 2020-0 Yes [id number] TAKE ONE [facility] 12.5 mg CR 3-20 TABLET BY ity of tablet 00:00: MOUTH AT [place] 00 BEDTIME Medical NEEDED FOR Branch SLEEP HYDROcodone 2020-0 Yes [id number] 1{tbl} Take 1 [facility] -acetaminop 3-20 tablet by ity of hen 7.5-325 00:00: mouth [place] mg per 00 every 6 Medical tablet (six) Branch hours as needed for Pain. zolpidem 2020-0 Yes [id number] TAKE ONE [facility] 12.5 mg CR 3-20 TABLET BY ity of tablet 00:00: MOUTH AT [place] 00 BEDTIME Medical NEEDED FOR Branch SLEEP HYDROcodone 2020-0 Yes [id number] 1{tbl} Take 1 [facility] -acetaminop 3-20 tablet by ity of hen 7.5-325 00:00: mouth [place] mg per 00 every 6 Medical tablet (six) Branch hours as needed for Pain. zolpidem 2020-0 Yes [id number] TAKE ONE [facility] 12.5 mg CR 3-20 TABLET BY ity of tablet 00:00: MOUTH AT [place] 00 BEDTIME Medical NEEDED FOR Branch SLEEP zolpidem 2020-0 Yes [id number] TAKE ONE [facility] 12.5 mg CR 3-20 TABLET BY ity of tablet 00:00: MOUTH AT [place] 00 BEDTIME Medical NEEDED FOR Branch SLEEP zolpidem 2020-0 Yes [id number] TAKE ONE [facility] 12.5 mg CR 3-20 TABLET BY ity of tablet 00:00: MOUTH AT [place] 00 BEDTIME Medical NEEDED FOR Branch SLEEP zolpidem 0 2020- No [id number] TAKE ONE [facility] 12.5 mg CR 3-20 05-05 TABLET BY ity of tablet 00:00: 00:00 MOUTH AT [place] 00 :00 BEDTIME Medical NEEDED FOR Branch SLEEP HYDROcodone 0 2019- No [id number] 1{tbl} Take 1 [facility] -acetaminop 3-20 04-20 tablet by it y of hen 7.5-325 00:00: 00:00 mouth [place] mg per 00 :00 every 6 Medical tablet (six) Branch hours as needed for Pain. HYDROcodone 2019- No [id number] 1{tbl} Take 1 [facility] -acetaminop 3-20 04-20 tablet by it y of hen 7.5-325 00:00: 00:00 mouth [place] mg per 00 :00 every 6 Medical tablet (six) Branch hours as needed for Pain. ZOLPIDEM 2020-0 Yes [id number] TAKE ONE [facility] 12.5 mg CR 3-18 TABLET BY ity of tablet 00:00: MOUTH AT [place] 00 BEDTIME Medical NEEDED FOR Branch SLEEP ZOLPIDEM 0 2020- No [id number] TAKE ONE [facility] 12.5 mg CR 3-18 03-19 TABLET BY ity of tablet 00:00: 00:00 MOUTH AT [place] 00 :00 BEDTIME Medical NEEDED FOR Branch SLEEP ESCITALOPRA 2020-0 Yes [id number] TAKE ONE [facility] M OXALATE 3-17 TABLET BY ity o f 20 mg 00:00: MOUTH [place] tablet 00 DAILY Medical Branch CYCLOBENZAP 2020-0 Yes [id number] TAKE ONE [facility] RINE 10 mg 3-17 TABLET BY ity of tablet 00:00: MOUTH [place] 00 TWICE A Medical DAY Branch NEEDED FOR MUSCLE SPASMS ESCITALOPRA 2020-0 Yes [id number] TAKE ONE [facility] M OXALATE 3-17 TABLET BY ity o f 20 mg 00:00: MOUTH [place] tablet 00 DAILY [facility] CYCLOBENZAP 2020-0 Yes [id number] TAKE ONE [facility] RINE 10 mg 3-17 TABLET BY ity of tablet 00:00: MOUTH [place] 00 TWICE A Medical DAY Branch NEEDED FOR MUSCLE SPASMS ESCITALOPRA 2020-0 Yes [id number] TAKE ONE [facility] M OXALATE 3-17 TABLET BY ity o f 20 mg 00:00: MOUTH [place] tablet 00 DAILY [facility] CYCLOBENZAP 2020-0 Yes [id number] TAKE ONE [facility] RINE 10 mg 3-17 TABLET BY ity of tablet 00:00: MOUTH [place] 00 TWICE A Medical DAY Branch NEEDED FOR MUSCLE SPASMS ESCITALOPRA 2020-0 Yes [id number] TAKE ONE [facility] M OXALATE 3-17 TABLET BY ity o f 20 mg 00:00: MOUTH [place] tablet 00 DAILY [facility] CYCLOBENZAP 2020-0 Yes [id number] TAKE ONE [facility] RINE 10 mg 3-17 TABLET BY ity of tablet 00:00: MOUTH [place] 00 TWICE A Medical DAY Branch NEEDED FOR MUSCLE SPASMS ESCITALOPRA 2020-0 Yes [id number] TAKE ONE [facility] M OXALATE 3-17 TABLET BY ity o f 20 mg 00:00: MOUTH [place] tablet 00 DAILY [facility] CYCLOBENZAP 2020-0 Yes [id number] TAKE ONE [facility] RINE 10 mg 3-17 TABLET BY ity of tablet 00:00: MOUTH [place] 00 TWICE A Medical DAY Branch NEEDED FOR MUSCLE SPASMS ESCITALOPRA 2020-0 Yes [id number] TAKE ONE [facility] M OXALATE 3-17 TABLET BY ity o f 20 mg 00:00: MOUTH [place] tablet 00 DAILY [facility] Branch CYCLOBENZAP 2020-0 Yes [id number] TAKE ONE [facility] RINE 10 mg 3-17 TABLET BY ity of tablet 00:00: MOUTH [place] 00 TWICE A Medical DAY Branch NEEDED FOR MUSCLE SPASMS ESCITALOPRA 2020-0 Yes [id number] TAKE ONE [facility] M OXALATE 3-17 TABLET BY ity o f 20 mg 00:00: MOUTH [place] tablet 00 DAILY [facility] CYCLOBENZAP 2020-0 Yes [id number] TAKE ONE [facility] RINE 10 mg 3-17 TABLET BY [facility] of tablet 00:00: MOUTH [place] 00 TWICE A Medical DAY Branch NEEDED FOR MUSCLE SPASMS ESCITALOPRA 2020-0 Yes [id number] TAKE ONE [facility] M OXALATE 3-17 TABLET BY ity o f 20 mg 00:00: MOUTH [place] tablet 00 DAILY [facility] CYCLOBENZAP 2020-0 Yes [id number] TAKE ONE [facility] RINE 10 mg 3-17 TABLET BY [facility] of tablet 00:00: MOUTH [place] 00 TWICE A Medical DAY Branch NEEDED FOR MUSCLE SPASMS ESCITALOPRA 2020-0 Yes [id number] TAKE ONE [facility] M OXALATE 3-17 TABLET BY ity o f 20 mg 00:00: MOUTH [place] tablet 00 DAILY [facility] CYCLOBENZAP 2020-0 Yes [id number] TAKE ONE [facility] RINE 10 mg 3-17 TABLET BY [facility] of tablet 00:00: MOUTH [place] 00 TWICE A Medical DAY Branch NEEDED FOR MUSCLE SPASMS ESCITALOPRA 2020-0 Yes [id number] TAKE ONE [facility] M OXALATE 3-17 TABLET BY ity o f 20 mg 00:00: MOUTH [place] tablet 00 DAILY [facility] CYCLOBENZAP 2020-0 Yes [id number] TAKE ONE [facility] RINE 10 mg 3-17 TABLET BY [facility] of tablet 00:00: MOUTH [place] 00 TWICE A Medical DAY Branch NEEDED FOR MUSCLE SPASMS ESCITALOPRA 2020-0 Yes [id number] TAKE ONE [facility] M OXALATE 3-17 TABLET BY ity o f 20 mg 00:00: MOUTH [place] tablet 00 DAILY [facility] CYCLOBENZAP 2020-0 Yes [id number] TAKE ONE [facility] RINE 10 mg 3-17 TABLET BY ity of tablet 00:00: MOUTH [place] 00 TWICE A Medical DAY Branch NEEDED FOR MUSCLE SPASMS CYCLOBENZAP 2020-0 Yes [id number] TAKE ONE [facility] RINE 10 mg 3-17 TABLET BY [facility]y of tablet 00:00: MOUTH [place] 00 TWICE A Medical DAY Branch NEEDED FOR MUSCLE SPASMS CYCLOBENZAP 2020-0 2020- No [id number] TAKE ONE [facility] RINE 10 mg 3-17 04-20 TABLET BY it[facility] of tablet 00:00: 00:00 MOUTH [place] 00 :00 TWICE A Medical DAY Branch NEEDED FOR MUSCLE SPASMS CYCLOBENZAP 2020-0 2020- No [id number] TAKE ONE [facility] RINE 10 mg 3-17 04-20 TABLET BY ity of tablet 00:00: 00:00 MOUTH [place] 00 :00 TWICE A Medical DAY Branch NEEDED FOR MUSCLE SPASMS ESCITALOPRA 2020-0 2020- No [id number] TAKE ONE [facility] M OXALATE 3-17 04-14 TABLET BY ity of 20 mg 00:00: 00:00 MOUTH [place] tablet 00 :00 DAILY Medical Branch HYDROcodone 2020-0 Yes [id number] 1{tbl} Take 1 [facility] -acetaminop 2-20 tablet by [facility]y of hen 7.5-325 00:00: mouth [place] mg per 00 every 6 Medical tablet (six) Branch hours as needed for Pain. HYDROcodone 2020-0 Yes [id number] 1{tbl} Take 1 [facility] -acetaminop 2-20 tablet by [facility]y of hen 7.5-325 00:00: mouth [place] mg per 00 every 6 Medical tablet (six) Branch hours as needed for Pain. HYDROcodone 2020-0 Yes [id number] 1{tbl} Take 1 [facility] -acetaminop 2-20 tablet by ity of hen 7.5-325 00:00: mouth [place] mg per 00 every 6 Medical tablet (six) Branch hours as needed for Pain. HYDROcodone 2020-0 2020- No [id number] 1{tbl} Take 1 [facility] -acetaminop 2-20 03-20 tablet by [facility] y of hen 7.5-325 00:00: 00:00 mouth [place] mg per 00 :00 every 6 Medical tablet (six) Branch hours as needed for Pain. zolpidem 2020-0 Yes [id number] TAKE ONE [facility] 12.5 mg CR 2-18 TABLET BY ity of tablet 00:00: MOUTH AT [place] 00 BEDTIME Medical NEEDED FOR Branch SLEEP zolpidem 2020-0 Yes [id number] TAKE ONE [facility] 12.5 mg CR 2-18 TABLET BY ity of tablet 00:00: MOUTH AT [place] 00 BEDTIME Medical NEEDED FOR Branch SLEEP zolpidem 2020-0 Yes [id number] TAKE ONE [facility] 12.5 mg CR 2-18 TABLET BY it[facility] of tablet 00:00: MOUTH AT [place] 00 BEDTIME Medical NEEDED FOR Branch SLEEP zolpidem 2020-0 2020- No [id number] TAKE ONE [facility] 12.5 mg CR 2-18 03-18 TABLET BY ity of tablet 00:00: 00:00 MOUTH AT [place] 00 :00 BEDTIME Medical NEEDED FOR Branch SLEEP ESCITALOPRA 2020-0 Yes [id number] TAKE ONE [facility] M OXALATE 2-11 TABLET BY ity o f 20 mg 00:00: MOUTH [place] tablet 00 DAILY [facility] Branch CYCLOBENZAP 2020-0 Yes [id number] TAKE ONE [facility] RINE 10 mg 2-11 TABLET BY [facility] of tablet 00:00: MOUTH [place] 00 TWICE A Medical DAY Branch NEEDED FOR MUSCLE SPASMS ESCITALOPRA 2020-0 Yes [id number] TAKE ONE [facility] M OXALATE 2-11 TABLET BY ity o f 20 mg 00:00: MOUTH [place] tablet 00 DAILY Medical Branch CYCLOBENZAP 2020-0 Yes [id number] TAKE ONE [facility] RINE 10 mg 2-11 TABLET BY [facility] of tablet 00:00: MOUTH [place] 00 TWICE A Medical DAY Branch NEEDED FOR MUSCLE SPASMS ESCITALOPRA 2020-0 Yes [id number] TAKE ONE [facility] M OXALATE 2-11 TABLET BY ity o f 20 mg 00:00: MOUTH [place] tablet 00 DAILY Medical Branch CYCLOBENZAP 2020-0 Yes [id number] TAKE ONE [facility] RINE 10 mg 2-11 TABLET BY it[facility] of tablet 00:00: MOUTH [place] 00 TWICE A Medical DAY Branch NEEDED FOR MUSCLE SPASMS ESCITALOPRA 2020-0 2020- No [id number] TAKE ONE [facility] M OXALATE 2-11 03-17 TABLET BY ity of 20 mg 00:00: 00:00 MOUTH [place] tablet 00 :00 DAILY Medical Branch CYCLOBENZAP 2020-0 2020- No [id number] TAKE ONE [facility] RINE 10 mg 2-11 03-17 TABLET BY ity of tablet 00:00: 00:00 MOUTH [place] 00 :00 TWICE A Medical DAY Branch NEEDED FOR MUSCLE SPASMS TRAZODONE 2020-0 Yes [id number] TAKE ONE [facility] 50 mg 2-04 TABLET BY [facility] tablet 00:00: [facility] [place] [facility]-0 Yes [id number] TAKE ONE [facility] 50 mg 2-04 TABLET BY [facility] tablet 00:00: [facility] [place] [facility] TRA[facility] 2020-0 Yes [id number] TAKE ONE [facility] 50 mg 2-04 TABLET BY [facility] of tablet 00:00: [facility] [place] [facility] 2020-0 Yes [id number] TAKE ONE [facility] 50 mg 2-04 TABLET BY it[facility] of tablet 00:00: MOUTH AT [address] Medical Branch TRAZODONE 2020-0 Yes [id number] TAKE ONE [facility] 50 mg 2-04 TABLET BY ity of tablet 00:00: MOUTH AT [address] [facility] Branch TRAZODONE 2020-0 Yes [id number] TAKE ONE [facility] 50 mg 2-04 TABLET BY ity of tablet 00:00: MOUTH AT [place] [facility] TRAZODONE 2020-0 Yes [id number] TAKE ONE [facility] 50 mg 2-04 TABLET BY ity of tablet 00:00: MOUTH AT [place] [facility] TRAZODONE 2020-0 Yes [id number] TAKE ONE [facility] 50 mg 2-04 TABLET BY ity of tablet 00:00: MOUTH AT [place] [facility] TRAZODONE 2020-0 Yes [id number] TAKE ONE [facility] 50 mg 2-04 TABLET BY ity of tablet 00:00: MOUTH AT [place] [facility] TRAZODONE 2020-0 Yes TAKE ONE [facility] 50 mg 2-04 TABLET BY ity of tablet 00:00: MOUTH AT [place] [facility] TRAZODONE 2020-0 Yes TAKE ONE [facility] 50 mg 2-04 TABLET BY ity of tablet 00:00: MOUTH AT [place] [facility] TRAZODONE 2020-0 Yes TAKE ONE [facility] 50 mg 2-04 TABLET BY ity of tablet 00:00: MOUTH AT [place] [facility] TRAZODONE 2020-0 Yes [id number] TAKE ONE [facility] 50 mg 2-04 TABLET BY ity of tablet 00:00: MOUTH AT [address] TRAZODONE 2020-0 Yes [id number] TAKE ONE [facility] 50 mg 2-04 TABLET BY ity of tablet 00:00: MOUTH AT [place] [facility] [facility] TRAZODONE 2020-0 Yes [id number] TAKE ONE [facility] 50 mg 2-04 TABLET BY ity of tablet 00:00: MOUTH AT [place] [facility] TRAZODONE 2020-0 Yes [id number] TAKE ONE [facility] 50 mg 2-04 TABLET BY ity of tablet 00:00: MOUTH AT [place] [facility] TRAZODONE 2020-0 Yes [id number] TAKE ONE [facility] 50 mg 2-04 TABLET BY ity of tablet 00:00: MOUTH AT [address] TRAZODONE 2020-0 Yes [id number] TAKE ONE [facility] 50 mg 2-04 TABLET BY ity of tablet 00:00: MOUTH AT [address] TRAZODONE 2020-0 Yes [id number] TAKE ONE [facility] 50 mg 2-04 TABLET BY ity of tablet 00:00: MOUTH AT [place] 00 BEDTIME Medical Branch TRAZODONE 2020-0 2020- No [id number] TAKE ONE [facility] 50 mg 2-04 05-05 TABLET BY ity of tablet 00:00: 00:00 MOUTH AT [place] 00 :00 BEDTIME Medical Branch HYDROcodone 2020-0 Yes [id number] 1{tbl} Take 1 [facility] -acetaminop 1-21 tablet by ity of hen 7.5-325 00:00: mouth [place] mg per 00 every 6 Medical tablet (six) Branch hours as needed for Pain. HYDROcodone 2020-0 Yes [id number] 1{tbl} Take 1 [facility] -acetaminop 1-21 tablet by ity of hen 7.5-325 00:00: mouth [place] mg per 00 every 6 Medical tablet (six) Branch hours as needed for Pain. HYDROcodone 2019-0 Yes [id number] 1{tbl} Take 1 [facility] -acetaminop 1-21 tablet by ity of hen 7.5-325 00:00: mouth [place] mg per 00 every 6 Medical tablet (six) Branch hours as needed for Pain. HYDROcodone 2020-0 Yes [id number] 1{tbl} Take 1 [facility] -acetaminop 1-21 tablet by ity of hen 7.5-325 00:00: mouth [place] mg per 00 every 6 Medical tablet (six) Branch hours as needed for Pain. HYDROcodone 2019-0 Yes [id number] 1{tbl} Take 1 [facility] -acetaminop 1-21 tablet by ity of hen 7.5-325 00:00: mouth [place] mg per 00 every 6 Medical tablet (six) Branch hours as needed for Pain. HYDROcodone 2019-0 2020- No [id number] 1{tbl} Take 1 [facility] -acetaminop 1-21 02-20 tablet by it y of hen 7.5-325 00:00: 00:00 mouth [place] mg per 00 :00 every 6 Medical tablet (six) Branch hours as needed for Pain. ZOLPIDEM 2020-0 Yes [id number] TAKE ONE [facility] 12.5 mg CR 1-13 TABLET BY ity of tablet 00:00: MOUTH AT [place] 00 BEDTIME Medical NEEDED FOR Branch SLEEP ZOLPIDEM 2020-0 Yes [id number] TAKE ONE [facility] 12.5 mg CR 1-13 TABLET BY ity of tablet 00:00: MOUTH AT [place] 00 BEDTIME Medical NEEDED FOR Branch SLEEP ZOLPIDEM 2020-0 Yes [id number] TAKE ONE [facility] 12.5 mg CR 1-13 TABLET BY ity of tablet 00:00: MOUTH AT [place] 00 BEDTIME Medical NEEDED FOR Branch SLEEP ZOLPIDEM 2020-0 Yes [id number] TAKE ONE [facility] 12.5 mg CR 1-13 TABLET BY ity of tablet 00:00: MOUTH AT [place] 00 BEDTIME Medical NEEDED FOR Branch SLEEP ZOLPIDEM 2020-0 2020- No [id number] TAKE ONE [facility] 12.5 mg CR 1-13 02-17 TABLET BY ity of tablet 00:00: 00:00 MOUTH AT [place] 00 :00 BEDTIME Medical NEEDED FOR Branch SLEEP CYCLOBENZAP 2020-0 Yes [id number] TAKE ONE [facility] RINE 10 mg 1-09 TABLET BY ity of tablet 00:00: MOUTH [place] 00 TWICE A Medical DAY Branch NEEDED FOR MUSCLE SPASMS CYCLOBENZAP 2020-0 Yes [id number] TAKE ONE [facility] RINE 10 mg 1-09 TABLET BY ity of tablet 00:00: MOUTH [place] 00 TWICE A Medical DAY Branch NEEDED FOR MUSCLE SPASMS CYCLOBENZAP 2020-0 2020- No [id number] TAKE ONE [facility] RINE 10 mg 1-09 02-11 TABLET BY ity of tablet 00:00: 00:00 MOUTH [place] 00 :00 TWICE A Medical DAY Branch NEEDED FOR MUSCLE SPASMS methylPREDN 2018-05 Yes [id number] 84mg Take 21 [facility] ISolone 2-09 tablets by ity of (MEDROL, 00:00: mouth [place] GIORGIO,) 4 mg 00 SEE-INSTRU Med ical tablets CTIONS. Branch follow package directions methylPREDN 2018-05 Yes [id number] 84mg Take 21 [facility] ISolone 2-09 tablets by ity of (MEDROL, 00:00: mouth [place] GIORGIO,) 4 mg 00 SEE-INSTRU Med ical tablets CTIONS. Branch follow package directions methylPREDN 2018-05 Yes [id number] 84mg Take 21 [facility] ISolone 2-09 tablets by ity of (MEDROL, 00:00: mouth [place] GIORGIO,) 4 mg 00 SEE-INSTRU Med ical tablets CTIONS. Branch follow package directions methylPREDN 2018-05 Yes [id number] 84mg Take 21 [facility] ISolone 2-09 tablets by ity of (MEDROL, 00:00: mouth [place] GIORGIO,) 4 mg 00 SEE-INSTRU Med ical tablets CTIONS. Branch follow package directions methylPREDN 2018-05 Yes [id number] 84mg Take 21 [facility] ISolone 2-09 tablets by ity of (MEDROL, 00:00: mouth [place] GIORGIO,) 4 mg 00 SEE-INSTRU Med ical tablets CTIONS. Branch follow package directions methylPREDN 2018-05 Yes [id number] 84mg Take 21 [facility] ISolone 2-09 tablets by ity of (MEDROL, 00:00: mouth [place] GIORGIO,) 4 mg 00 SEE-INSTRU Med ical tablets CTIONS. Branch follow package directions methylPREDN 2018-05 Yes [id number] 84mg Take 21 [facility] ISolone 2-09 tablets by ity of (MEDROL, 00:00: mouth [place] GIORGIO,) 4 mg 00 SEE-INSTRU Med ical tablets CTIONS. Branch follow package directions methylPREDN 2018-05 Yes [id number] 84mg Take 21 [facility] ISolone 2-09 tablets by ity of (MEDROL, 00:00: mouth [place] GIORGIO,) 4 mg 00 SEE-INSTRU Med ical tablets CTIONS. Branch follow package directions methylPREDN 2018-05 Yes [id number] 84mg Take 21 [facility] ISolone 2-09 tablets by ity of (MEDROL, 00:00: mouth [place] GIORGIO,) 4 mg 00 SEE-INSTRU Med ical tablets CTIONS. Branch follow package directions methylPREDN 2018-05 Yes [id number] 84mg Take 21 [facility] ISolone 2-09 tablets by ity of (MEDROL, 00:00: mouth [place] GIORGIO,) 4 mg 00 SEE-INSTRU Med ical tablets CTIONS. Branch follow package directions methylPREDN 2018-05 Yes [id number] 84mg Take 21 [facility] ISolone 2-09 tablets by ity of (MEDROL, 00:00: mouth [place] GIORGIO,) 4 mg 00 SEE-INSTRU Med ical tablets CTIONS. Branch follow package directions methylPREDN 2018-05 Yes [id number] 84mg Take 21 [facility] ISolone 2-09 tablets by ity of (MEDROL, 00:00: mouth [place] GIORGIO,) 4 mg 00 SEE-INSTRU Med ical tablets CTIONS. Branch follow package directions methylPREDN 2018-05 Yes [id number] 84mg Take 21 [facility] ISolone 2-09 tablets by ity of (MEDROL, 00:00: mouth [place] GIORGIO,) 4 mg 00 SEE-INSTRU Med ical tablets CTIONS. Branch follow package directions methylPREDN 2018-05 Yes [id number] 84mg Take 21 [facility] ISolone 2-09 tablets by ity of (MEDROL, 00:00: mouth [place] GIORGIO,) 4 mg 00 SEE-INSTRU Med ical tablets CTIONS. Branch follow package directions methylPREDN 2018-05 Yes [id number] 84mg Take 21 [facility] ISolone 2-09 tablets by ity of (MEDROL, 00:00: mouth [place] GIORGIO,) 4 mg 00 SEE-INSTRU Med ical tablets CTIONS. Branch follow package directions methylPREDN 2018-05 Yes [id number] 84mg Take 21 [facility] ISolone 2-09 tablets by ity of (MEDROL, 00:00: mouth [place] GIORGIO,) 4 mg 00 SEE-INSTRU Med ical tablets CTIONS. Branch follow package directions methylPREDN 2018-05 Yes [id number] 84mg Take 21 [facility] ISolone 2-09 tablets by ity of (MEDROL, 00:00: mouth [place] GIORGIO,) 4 mg 00 SEE-INSTRU Med ical tablets CTIONS. Branch follow package directions methylPREDN 2018-05 Yes [id number] 84mg Take 21 [facility] ISolone 2-09 tablets by ity of (MEDROL, 00:00: mouth [place] GIORGIO,) 4 mg 00 SEE-INSTRU Med ical tablets CTIONS. Branch follow package directions methylPREDN 2018-05 Yes [id number] 84mg Take 21 [facility] ISolone 2-09 tablets by ity of (MEDROL, 00:00: mouth [place] GIORGIO,) 4 mg 00 SEE-INSTRU Med ical tablets CTIONS. Branch follow package directions methylPREDN 2018-05 Yes [id number] 84mg Take 21 [facility] ISolone 2-09 tablets by ity of (MEDROL, 00:00: mouth [place] GIORGIO,) 4 mg 00 SEE-INSTRU Med ical tablets CTIONS. Branch follow package directions methylPREDN 2018-05 2020- No [id number] 84mg Take 21 [facility] ISolone 2-09 05-05 tablets by ity o f (MEDROL, 00:00: 00:00 mouth [place] GIORGIO,) 4 mg 00 :00 SEE-INSTRU Med ical tablets CTIONS. Branch follow package directions HYDROcodone 2018-05 2020- No [id number] 1{tbl} Take 1 [facility] -acetaminop 07-02 tablet by it y of hen 7.5-325 00:00: 00:00 mouth [place] mg per 00 :00 every 6 Medical tablet (six) Branch hours as needed for Pain. flu vacc 2018-05 Yes LOT [facility] [id number] 0-02 [id number] ity of 36mos up/PF 00:00: EXP [place] (AFLURIA QD 00 11/21/2019 Me dical ,3YR Branch UP,,PF, IM) flu vacc 2018-05 Yes LOT [facility] [id number] 0-02 [id number] ity of 36mos up/PF 00:00: EXP [place] (AFLURIA QD 00 11/21/2019 Me dical ,3YR Branch UP,,PF, IM) flu vacc 2018-05 Yes LOT [facility] [id number] 0-02 [id number] ity of 36mos up/PF 00:00: EXP [place] (AFLURIA QD 00 11/21/2019 Me dical ,3YR Branch UP,,PF, IM) flu vacc 2018-05 Yes LOT [facility] [id number] 0-02 [id number] ity of 36mos up/PF 00:00: EXP [place] (AFLURIA QD 00 11/21/2019 Me dical ,3YR Branch UP,,PF, IM) flu vacc 2018-05 Yes LOT [facility] [id number] 0-02 [id number] ity of 36mos up/PF 00:00: EXP [place] (AFLURIA QD 00 11/21/2019 Me dical ,3YR Branch UP,,PF, IM) flu vacc 2018- Yes LOT [facility] [id number] 0-02 [id number] ity of 36mos up/PF 00:00: EXP [place] (AFLURIA QD 00 11/21/2019 Me dical ,3YR Branch UP,,PF, IM) flu vacc 2018- Yes LOT [facility] [id number] 0-02 [id number] ity of 36mos up/PF 00:00: EXP [place] (AFLURIA QD 00 11/21/2019 Me dical ,3YR Branch UP,,PF, IM) flu vacc 2018-05 Yes LOT [facility] [id number] 0-02 [id number] ity of 36mos up/PF 00:00: EXP [place] (AFLURIA QD 00 11/21/2019 Me dical ,3YR Branch UP,,PF, IM) flu vacc 2018-05 Yes LOT [facility] [id number] 0-02 [id number] ity of 36mos up/PF 00:00: EXP [place] (AFLURIA QD 00 11/21/2019 Me dical ,3YR Branch UP,,PF, IM) flu vacc 2018-05 Yes LOT [facility] [id number] 0-02 [id number] ity of 36mos up/PF 00:00: EXP [place] (AFLURIA QD 00 11/21/2019 Me dical ,3YR Branch UP,,PF, IM) flu vacc 2018-05 Yes LOT [facility] [id number] 0-02 [id number] ity of 36mos up/PF 00:00: EXP [place] (AFLURIA QD 00 11/21/2019 Me dical ,3YR Branch UP,,PF, IM) flu vacc 2018-05 Yes LOT [facility] [id number] 0-02 [id number] ity of 36mos up/PF 00:00: EXP [place] (AFLURIA QD 00 11/21/2019 Me dical ,3YR Branch UP,,PF, IM) flu vacc 2018-05 Yes LOT [facility] [id number] 0-02 [id number] ity of 36mos up/PF 00:00: EXP [place] (AFLURIA QD 00 11/21/2019 Me dical ,3YR Branch UP,,PF, IM) flu vacc 2018- Yes LOT [facility] [id number] 0-02 [id number] ity of 36mos up/PF 00:00: EXP [place] (AFLURIA QD 00 11/21/2019 Me dical 2018-,3YR Branch UP,,PF, IM) flu vacc 2018- Yes LOT [facility] [id number] 0-02 [id number] ity of 36mos up/PF 00:00: EXP [place] (AFLURIA QD 00 11/21/2019 Me dical ,3YR Branch UP,,PF, IM) flu vacc 2019- Yes LOT [facility] [id number] 0-02 [id number] ity of 36mos up/PF 00:00: EXP [place] (AFLURIA QD 00 11/21/2019 Me dical ,3YR Branch UP,,PF, IM) flu vacc 2018-05 Yes LOT [facility] [id number] 0-02 [id number] ity of 36mos up/PF 00:00: EXP [place] (AFLURIA QD 00 11/21/2019 Me dical ,3YR Branch UP,,PF, IM) flu vacc 2018-05 Yes LOT [facility] [id number] 0-02 [id number] ity of 36mos up/PF 00:00: EXP [place] (AFLURIA QD 00 11/21/2019 Me dical ,3YR Branch UP,,PF, IM) flu vacc 2018-05 Yes LOT [facility] [id number] 0-02 [id number] ity of 36mos up/PF 00:00: EXP [place] (AFLURIA QD 00 11/21/2019 Me dical ,3YR Branch UP,,PF, IM) flu vacc 2018-05 Yes LOT [facility] [id number] 0-02 [id number] ity of 36mos up/PF 00:00: EXP [place] (AFLURIA QD 00 11/21/2019 Me dical ,3YR Branch UP,,PF, IM) flu vacc 2018-05 Yes LOT [facility] [id number] 0-02 [id number] ity of 36mos up/PF 00:00: EXP [place] (AFLURIA QD 00 11/21/2019 Me dical ,3YR Branch UP,,PF, IM) flu vacc 2018- Yes LOT [facility] [id number] 0-02 [id number] ity of 36mos up/PF 00:00: EXP [place] (AFLURIA QD 00 11/21/2019 Me dical ,3YR Branch UP,,PF, IM) flu vacc 2018- Yes LOT [facility] [id number] 0-02 [id number] ity of 36mos up/PF 00:00: EXP [place] (AFLURIA QD 00 11/21/2019 Me dical 2018-20,3YR Branch UP,,PF, IM) flu vacc 2018-05 Yes LOT [facility] [id number] 0-02 [id number] ity of 36mos up/PF 00:00: EXP [place] (AFLURIA QD 00 11/21/2019 Me dical ,3YR Branch UP,,PF, IM) flu vacc 2018-05 Yes LOT [facility] [id number] 0-02 [id number] ity of 36mos up/PF 00:00: EXP [place] (AFLURIA QD 00 11/21/2019 Me dical ,3YR Branch UP,,PF, IM) flu vacc 2018-05 Yes LOT [facility] [id number] 0-02 [id number] ity of 36mos up/PF 00:00: EXP [place] (AFLURIA QD 00 11/21/2019 Me dical ,3YR Branch UP,,PF, IM) flu vacc 2018-05 Yes LOT [facility] [id number] 0-02 [id number] ity of 36mos up/PF 00:00: EXP [place] (AFLURIA QD 00 11/21/2019 Me dical ,3YR Branch UP,,PF, IM) flu vacc 2018-05 Yes LOT [facility] [id number] 0-02 [id number] ity of 36mos up/PF 00:00: EXP [place] (AFLURIA QD 00 11/21/2019 Me dical ,3YR Branch UP,,PF, IM) flu vacc 2018-05 Yes LOT [facility] [id number] 0-02 [id number] ity of 36mos up/PF 00:00: EXP [place] (AFLURIA QD 00 11/21/2019 Me dical ,3YR Branch UP,,PF, IM) flu vacc 2018-05 Yes LOT [facility] [id number] 0-02 [id number] ity of 36mos up/PF 00:00: EXP [place] (AFLURIA QD 00 11/21/2019 Me dical ,3YR Branch UP,,PF, IM) flu vacc 2018- Yes LOT [facility] [id number] 0-02 [id number] ity of 36mos up/PF 00:00: EXP [place] (AFLURIA QD 00 11/21/2019 Me dical ,3YR Branch UP,,PF, IM) flu vacc 2019-1 Yes LOT [facility] [id number] 0-02 [id number] ity of 36mos up/PF 00:00: EXP [place] (AFLURIA QD 00 11/21/2019 Me dical 2018-,3YR Branch UP,,PF, IM) flu vacc 2018-05 Yes LOT [facility] [id number] 0-02 [id number] ity of 36mos up/PF 00:00: EXP [place] (AFLURIA QD 00 11/21/2019 Me dical ,3YR Branch UP,,PF, IM) flu vacc 2018-05 Yes LOT [facility] [id number] 0-02 [id number] ity of 36mos up/PF 00:00: EXP [place] (AFLURIA QD 00 11/21/2019 Me dical ,3YR Branch UP,,PF, IM) flu vacc 2018-05 Yes LOT [facility] [id number] 0-02 [id number] ity of 36mos up/PF 00:00: EXP [place] (AFLURIA QD 00 11/21/2019 Me dical ,3YR Branch UP,,PF, IM) flu vacc 2018-05 Yes LOT [facility] [id number] 0-02 [id number] ity of 36mos up/PF 00:00: EXP [place] (AFLURIA QD 00 11/21/2019 Me dical ,3YR Branch UP,,PF, IM) flu vacc 2018-05 Yes LOT [facility] [id number] 0-02 [id number] ity of 36mos up/PF 00:00: EXP [place] (AFLURIA QD 00 11/21/2019 Me dical ,3YR Branch UP,,PF, IM) flu vacc 2018-05 Yes LOT [facility] [id number] 0-02 [id number] ity of 36mos up/PF 00:00: EXP [place] (AFLURIA QD 00 11/21/2019 Me dical ,3YR Branch UP,,PF, IM) flu vacc 2018-05 Yes LOT [facility] [id number] 0-02 [id number] ity of 36mos up/PF 00:00: EXP [place] (AFLURIA QD 00 11/21/2019 Me dical ,3YR Branch UP,,PF, IM) flu vacc 2018-05 Yes LOT [facility] [id number] 0-02 [id number] ity of 36mos up/PF 00:00: EXP [place] (AFLURIA QD 00 11/21/2019 Me dical 2019-20,3YR Branch UP,,PF, IM) flu vacc 2018-05 Yes LOT [facility] [id number] 0-02 [id number] ity of 36mos up/PF 00:00: EXP [place] (AFLURIA QD 00 11/21/2019 Me dical 2018-20,3YR Branch UP,,PF, IM) flu vacc 2018-05 Yes LOT [facility] [id number] 0-02 [id number] ity of 36mos up/PF 00:00: EXP [place] (AFLURIA QD 00 11/21/2019 Me dical 2018-,3YR Branch UP,,PF, IM) flu vacc 2018-05 Yes LOT [facility] [id number] 0-02 [id number] ity of 36mos up/PF 00:00: EXP [place] (AFLURIA QD 00 11/21/2019 Me dical ,3YR Branch UP,,PF, IM) flu vacc 2018-05 Yes LOT [facility] [id number] 0-02 [id number] ity of 36mos up/PF 00:00: EXP [place] (AFLURIA QD 00 11/21/2019 Me dical 2018-,3YR Branch UP,,PF, IM) flu vacc 2018-05 Yes LOT [facility] [id number] 0-02 [id number] ity of 36mos up/PF 00:00: EXP [place] (AFLURIA QD 00 11/21/2019 Me dical 2018-,3YR Branch UP,,PF, IM) flu vacc 2018-05 Yes LOT [facility] [id number] 0-02 [id number] ity of 36mos up/PF 00:00: EXP [place] (AFLURIA QD 00 11/21/2019 Me dical 2018-,3YR Branch UP,,PF, IM) flu vacc 2018-05 Yes LOT [facility] [id number] 0-02 [id number] ity of 36mos up/PF 00:00: EXP [place] (AFLURIA QD 00 11/21/2019 Me dical 2018-20,3YR Branch UP,,PF, IM) flu vacc 2018-05 Yes LOT [facility] [id number] 0-02 [id number] ity of 36mos up/PF 00:00: EXP [place] (AFLURIA QD 00 11/21/2019 Me dical 2019-20,3YR Branch UP,,PF, IM) flu vacc 2018-05 Yes LOT [facility] [id number] 0-02 [id number] ity of 36mos up/PF 00:00: EXP [place] (AFLURIA QD 00 11/21/2019 Me dical 2019-,3YR Branch UP,,PF, IM) flu vacc 2018-05 Yes LOT [facility] [id number] 0-02 [id number] ity of 36mos up/PF 00:00: EXP [place] (AFLURIA QD 00 11/21/2019 Me dical 2018-,3YR Branch UP,,PF, IM) flu vacc 2018-05 Yes LOT [facility] [id number] 0-02 [id number] ity of 36mos up/PF 00:00: EXP [place] (AFLURIA QD 00 11/21/2019 Me dical ,3YR Branch UP,,PF, IM) flu vacc 2018-05 Yes LOT [facility] [id number] 0-02 [id number] ity of 36mos up/PF 00:00: EXP [place] (AFLURIA QD 00 11/21/2019 Me dical 2018-,3YR Branch UP,,PF, IM) flu vacc 2018-05 Yes LOT [facility] [id number] 0-02 [id number] ity of 36mos up/PF 00:00: EXP [place] (AFLURIA QD 00 11/21/2019 Me dical 2018-,3YR Branch UP,,PF, IM) flu vacc 2018-05 Yes LOT [facility] [id number] 0-02 [id number] ity of 36mos up/PF 00:00: EXP [place] (AFLURIA QD 00 11/21/2019 Me dical 2018-,3YR Branch UP,,PF, IM) flu vacc 2018-05 Yes LOT [facility] [id number] 0-02 [id number] ity of 36mos up/PF 00:00: EXP [place] (AFLURIA QD 00 11/21/2019 Me dical 2019-20,3YR Branch UP,,PF, IM) flu vacc 2018-05 Yes LOT [facility] [id number] 0-02 [id number] ity of 36mos up/PF 00:00: EXP [place] (AFLURIA QD 00 11/21/2019 Me dical 2019-20,3YR Branch UP,,PF, IM) flu vacc 2018-05 Yes LOT [facility] [id number] 0-02 [id number] ity of 36mos up/PF 00:00: EXP [place] (AFLURIA QD 00 11/21/2019 Me dical 2019-20,3YR Branch UP,,PF, IM) flu vacc 2018-05 Yes LOT [facility] [id number] 0-02 [id number] ity of 36mos up/PF 00:00: EXP [place] (AFLURIA QD 00 11/21/2019 Me dical 2018-,3YR Branch UP,,PF, IM) flu vacc 2018-05 Yes LOT [facility] [id number] 0-02 [id number] ity of 36mos up/PF 00:00: EXP [place] (AFLURIA QD 00 11/21/2019 Me dical ,3YR Branch UP,,PF, IM) flu vacc 2018-05 Yes LOT [facility] [id number] 0-02 [id number] ity of 36mos up/PF 00:00: EXP [place] (AFLURIA QD 00 11/21/2019 Me dical ,3YR Branch UP,,PF, IM) flu vacc 2018-05 Yes LOT [facility] [id number] 0-02 [id number] ity of 36mos up/PF 00:00: EXP [place] (AFLURIA QD 00 11/21/2019 Me dical 2018-,3YR Branch UP,,PF, IM) flu vacc 2018-05 Yes LOT [facility] [id number] 0-02 [id number] ity of 36mos up/PF 00:00: EXP [place] (AFLURIA QD 00 11/21/2019 Me dical 2019-20,3YR Branch UP,,PF, IM) flu vacc 2018- Yes LOT [facility] [id number] 0-02 [id number] ity of 36mos up/PF 00:00: EXP [place] (AFLURIA QD 00 11/21/2019 Me dical 2019-20,3YR Branch UP,,PF, IM) flu vacc 2018-05 Yes LOT [facility] [id number] 0-02 [id number] ity of 36mos up/PF 00:00: EXP [place] (AFLURIA QD 00 11/21/2019 Me dical 2019-20,3YR Branch UP,,PF, IM) flu vacc 2018-05 Yes LOT [facility] [id number] 0-02 [id number] ity of 36mos up/PF 00:00: EXP [place] (AFLURIA QD 00 11/21/2019 Me dical 201920,3YR Branch UP,,PF, IM) flu vacc 2018-05 Yes LOT [facility] [id number] 0-02 [id number] ity of 36mos up/PF 00:00: EXP [place] (AFLURIA QD 00 11/21/2019 Me dical ,3YR Branch UP,,PF, IM) flu vacc 2018-05 Yes LOT [facility] [id number] 0-02 [id number] ity of 36mos up/PF 00:00: EXP [place] (AFLURIA QD 00 11/21/2019 Me dical ,3YR Branch UP,,PF, IM) flu vacc 2018-05 Yes LOT [facility] [id number] 0-02 [id number] ity of 36mos up/PF 00:00: EXP [place] (AFLURIA QD 00 11/21/2019 Me dical ,3YR Branch UP,,PF, IM) flu vacc 2018-05 Yes LOT [facility] [id number] 0-02 [id number] ity of 36mos up/PF 00:00: EXP [place] (AFLURIA QD 00 11/21/2019 Me dical ,3YR Branch UP,,PF, IM) flu vacc 2018-05 Yes LOT [facility] [id number] 0-02 [id number] ity of 36mos up/PF 00:00: EXP [place] (AFLURIA QD 00 11/21/2019 Me dical 2018-20,3YR Branch UP,,PF, IM) flu vacc 2018- Yes LOT [facility] [id number] 0-02 [id number] ity of 36mos up/PF 00:00: EXP [place] (AFLURIA QD 00 11/21/2019 Me dical 2018-20,3YR Branch UP,,PF, IM) flu vacc 2018-05 Yes LOT [facility] [id number] 0-02 [id number] ity of 36mos up/PF 00:00: EXP [place] (AFLURIA QD 00 11/21/2019 Me dical 2019-20,3YR Branch UP,,PF, IM) flu vacc 2018-05 Yes LOT [facility] [id number] 0-02 [id number] ity of 36mos up/PF 00:00: EXP [place] (AFLURIA QD 00 11/21/2019 Me dical 2019-20,3YR Branch UP,,PF, IM) flu vacc 2018- Yes LOT [facility] [id number] 0-02 [id number] ity of 36mos up/PF 00:00: EXP [place] (AFLURIA QD 00 11/21/2019 Me dical 2018-20,3YR Branch UP,,PF, IM) flu vacc 2018-05 Yes LOT [facility] [id number] 0-02 [id number] ity of 36mos up/PF 00:00: EXP [place] (AFLURIA QD 00 11/21/2019 Me dical 2018-,3YR Branch UP,,PF, IM) flu vacc 2018-05 Yes LOT [facility] [id number] 0-02 [id number] ity of 36mos up/PF 00:00: EXP [place] (AFLURIA QD 00 11/21/2019 Me dical 20,3YR Branch UP,,PF, IM) flu vacc 2018-05 Yes LOT [facility] [id number] 0-02 [id number] ity of 36mos up/PF 00:00: EXP [place] (AFLURIA QD 00 11/21/2019 Me dical 2018-20,3YR Branch UP,,PF, IM) flu vacc 2019- Yes LOT [facility] [id number] 0-02 [id number] ity of 36mos up/PF 00:00: EXP [place] (AFLURIA QD 00 11/21/2019 Me dical 2018-20,3YR Branch UP,,PF, IM) flu vacc 2018- Yes LOT [facility] [id number] 0-02 [id number] ity of 36mos up/PF 00:00: EXP [place] (AFLURIA QD 00 11/21/2019 Me dical 2018-20,3YR Branch UP,,PF, IM) flu vacc 2019- Yes LOT [facility] [id number] 0-02 [id number] ity of 36mos up/PF 00:00: EXP [place] (AFLURIA QD 00 11/21/2019 Me dical 2019-20,3YR Branch UP,,PF, IM) HYDROcodone Yes [id number] 1{tbl} Take 1 [facility] -acetaminop 9-17 tablet by ity of hen 7.5-325 00:00: mouth [place] mg per 00 every 6 Medical tablet (six) Branch hours as needed for Pain. ZOLPIDEM Yes [id number] TAKE ONE [facility] 12.5 mg CR 9-11 TABLET BY ity of tablet 00:00: MOUTH AT [place] 00 BEDTIME Medical NEEDED FOR Branch SLEEP ZOLPIDEM 2018- Yes [id number] TAKE ONE [facility] 12.5 mg CR 9-11 TABLET BY ity of tablet 00:00: MOUTH AT [place] 00 BEDTIME Medical NEEDED FOR Branch SLEEP HYDROcodone Yes [id number] 1{tbl} Take 1 [facility] -acetaminop 8-14 tablet by ity of hen 7.5-325 00:00: mouth [place] mg per 00 every 6 Medical tablet (six) Branch hours as needed for Pain. HYDROcodone Yes [id number] 1{tbl} Take 1 [facility] -acetaminop 8-14 tablet by ity of hen 7.5-325 00:00: mouth [place] mg per 00 every 6 Medical tablet (six) Branch hours as needed for Pain. HYDROcodone Yes [id number] 1{tbl} Take 1 [facility] -acetaminop 8-14 tablet by ity of hen 7.5-325 00:00: mouth [place] mg per 00 every 6 Medical tablet (six) Branch hours as needed for Pain. HYDROcodone 2019- No [id number] 1{tbl} Take 1 [facility] -acetaminop 8-14 09-17 tablet by it y of hen 7.5-325 00:00: 00:00 [place] mg per 00 :00 every 6 Medical tablet (six) Branch hours as needed for Pain. escitalopra Yes [id number] 20mg Take 1 [facility] m oxalate 7-17 tablet by ity o f 20 mg 00:00: mouth [place] tablet 00 daily. Medical Branch cyclobenzap Yes [id number] TAKE ONE [facility] rine 10 mg 7-17 TABLET BY ity of tablet 00:00: MOUTH [place] 00 TWICE A Medical DAY Branch NEEDED FOR MUSCLE SPASMS traZODONE Yes [id number] 50mg Take 1 [facility] n[facility] 50 mg 7-17 tablet by ity of tablet 00:00: mouth at [place] 00 bedtime. Medical Branch metoprolol Yes [id number] 50mg Take 1 U nivers succinate 7-17 tablet by ity o f XL 50 mg 24 00:00: mouth [place] hr tablet 00 daily. Medical [facility] escitalopra Yes [id number] 20mg Take 1 [facility] oxalate 7-17 tablet by [facility] f 20 mg 00:00: mouth [place] tablet 00 daily. [facility] cyclobenzap Yes [id number] TAKE ONE [facility] 10 mg 7-17 TABLET BY [facility] tablet 00:00: MOUTH [place] 00 TWICE A [facility] DAY [facility] NEEDED FOR MUSCLE SPASMS traZODONE Yes [id number] 50mg Take 1 [facility] 50 mg 7-17 tablet by [facility] tablet 00:00: mouth at [place] 00 bedtime. [facility] metoprolol Yes [id number] 50mg Take 1 [facility] succinate 7-17 tablet by [facility] f XL 50 mg 24 00:00: mouth [place] hr tablet 00 daily. [facility] escitalopra Yes [id number] 20mg Take 1 [facility] oxalate 7-17 tablet by [facility] f 20 mg 00:00: mouth [place] tablet 00 daily. [facility] metoprolol Yes [id number] 50mg Take 1 [facility] succinate 7-17 tablet by [facility] f XL 50 mg 24 00:00: mouth [place] hr tablet 00 daily. [facility] escitalopra Yes [id number] 20mg Take 1 [facility] oxalate 7-17 tablet by [facility] f 20 mg 00:00: mouth [place] tablet 00 daily. [facility] metoprolol Yes [id number] 50mg Take 1 [facility] succinate 7-17 tablet by [facility] f XL 50 mg 24 00:00: mouth [place] hr tablet 00 daily. [facility] metoprolol Yes [id number] 50mg Take 1 [facility] succinate 7-17 tablet by [facility] f XL 50 mg 24 00:00: mouth [place] hr tablet 00 daily. [facility] metoprolol Yes [id number] 50mg Take 1 [facility] succinate 7-17 tablet by [facility] f XL 50 mg 24 00:00: mouth [place] hr tablet 00 daily. [facility] metoprolol Yes [id number] 50mg Take 1 [facility] succinate 7-17 tablet by [facility] f XL 50 mg 24 00:00: mouth [place] hr tablet 00 daily. [facility] metoprolol Yes [id number] 50mg Take 1 [facility] succinate 7-17 tablet by [facility] f XL 50 mg 24 00:00: mouth [place] hr tablet 00 daily. [facility] metoprolol Yes [id number] 50mg Take 1 [facility] succinate 7-17 tablet by [facility] f XL 50 mg 24 00:00: mouth [place] hr tablet 00 daily. [facility] metoprolol Yes [id number] 50mg Take 1 [facility] succinate 7-17 tablet by [facility] f XL 50 mg 24 00:00: mouth [place] hr tablet 00 daily. [facility] metoprolol Yes [id number] 50mg Take 1 U nivers succinate 7-17 tablet by ity o f XL 50 mg 24 00:00: mouth [place] hr tablet 00 daily. [facility] metoprolol Yes [id number] 50mg Take 1 U nivers succinate 7-17 tablet by ity o f XL 50 mg 24 00:00: mouth [place] hr tablet 00 daily. [facility] metoprolol Yes [id number] 50mg Take 1 U nivers succinate 7-17 tablet by ity o f XL 50 mg 24 00:00: mouth [place] hr tablet 00 daily. [facility] metoprolol Yes [id number] 50mg Take 1 U nivers succinate 7-17 tablet by ity o f XL 50 mg 24 00:00: mouth [place] hr tablet 00 daily. [facility] metoprolol Yes [id number] 50mg Take 1 U nivers succinate 7-17 tablet by ity o f XL 50 mg 24 00:00: mouth [place] hr tablet 00 daily. [facility] metoprolol Yes [id number] 50mg Take 1 U nivers succinate 7-17 tablet by ity o f XL 50 mg 24 00:00: mouth [place] hr tablet 00 daily. [facility] Branch metoprolol Yes [id number] 50mg Take 1 U nivers succinate 7-17 tablet by ity o f XL 50 mg 24 00:00: mouth [place] hr tablet 00 daily. [facility] metoprolol Yes [id number] 50mg Take 1 U nivers succinate 7-17 tablet by ity o f XL 50 mg 24 00:00: mouth [place] hr tablet 00 daily. [facility] traZODONE 2019-0 Yes [id number] 50mg Take 1 U nivers 50 mg 7-17 tablet by ity of tablet 00:00: mouth at [place] 00 bedtime. [facility] metoprolol 0 Yes [id number] 50mg Take 1 U nivers succinate 7-17 tablet by ity o f XL 50 mg 24 00:00: mouth [place] hr tablet 00 daily. [facility] escitalopra Yes [id number] 20mg Take 1 [facility] m oxalate 7-17 tablet by ity o f 20 mg 00:00: mouth [place] tablet 00 daily. [facility] cyclobenzap Yes [id number] TAKE ONE Univers rine 10 mg 7-17 TABLET BY ity of tablet 00:00: MOUTH [place] 00 TWICE A Medical DAY Branch NEEDED FOR MUSCLE SPASMS traZODONE 0 Yes [id number] 50mg Take 1 U nivers 50 mg 7-17 tablet by ity of tablet 00:00: mouth at [place] 00 bedtime. [facility] metoprolol 0 Yes [id number] 50mg Take 1 U nivers succinate 7-17 tablet by ity o f XL 50 mg 24 00:00: mouth [place] hr tablet 00 daily. [facility] escitalopra Yes [id number] 20mg Take 1 Univers m oxalate 7-17 tablet by ity o f 20 mg 00:00: mouth [place] tablet 00 daily. [facility] cyclobenzap Yes [id number] TAKE ONE Univers rine 10 mg 7-17 TABLET BY ity of tablet 00:00: MOUTH [place] 00 TWICE A Medical DAY Branch NEEDED FOR MUSCLE SPASMS traZODONE 0 Yes [id number] 50mg Take 1 U nivers 50 mg 7-17 tablet by ity of tablet 00:00: mouth at [place] 00 bedtime. [facility] metoprolol Yes [id number] 50mg Take 1 U nivers succinate 7-17 tablet by ity o f XL 50 mg 24 00:00: mouth [place] hr tablet 00 daily. [facility] metoprolol 0 2020- No [id number] 50mg Take 1 [facility] succinate 7-17 04-14 tablet by ity of XL 50 mg 24 00:00: 00:00 [place] tablet 00 :00 daily. [facility] escitalopra 2020- No [id number] 20mg Take 1 Univers m oxalate 12-07 tablet by ity of 20 mg 00:00: 00:00 mouth [place] tablet 00 :00 daily. [facility] traZODONE 2020- No [id number] 50mg Take 1 Univers 50 mg 12-07 tablet by ity of tablet 00:00: 00:00 mouth at [place] 00 :00 bedtime. [facility] HYDROcodone 2019- No [id number] 1{tbl} Take 1 Univers -acetaminop 12-07 tablet by it y of hen 7.5-325 00:00: 00:00 [place] mg per 00 :00 every 6 Medical tablet (six) Branch hours as needed for Pain. ZOLPIDEM Yes [id number] TAKE ONE Univers 12.5 mg CR 6-10 TABLET BY ity of tablet 00:00: MOUTH AT [place] 00 BEDTIME Medical NEEDED FOR Branch SLEEP ZOLPIDEM Yes [id number] TAKE ONE Univers 12.5 mg CR 6-10 TABLET BY ity of tablet 00:00: MOUTH AT [place] 00 BEDTIME Medical NEEDED FOR Branch SLEEP ZOLPIDEM 2019- No [id number] TAKE ONE Univers 12.5 mg CR 6-10 09-11 TABLET BY ity of tablet 00:00: 00:00 MOUTH AT [place] 00 :00 BEDTIME Medical NEEDED FOR Branch SLEEP No known No Univers medications ity of [facility] Metoprolol Metoprolol Yes 1 TAKE 1 U T Succinate Succinate TABLET Phy sici ER 25 MG ER 25 MG BEDTIME ans Oral Tablet Oral Tablet Extended Extended Release 24 Release 24 Hour Hour Lexapro 20 Lexapro 20 Yes 1 QD TAKE 1 U T MG Oral MG Oral TABLET [facility] Tablet Tablet DAILY. ans Ibuprofen Ibuprofen Yes 1 TAKE 1 [place] 800 MG Oral 800 MG Oral TABLET [facility] Tablet Tablet NEEDED. ans Flexeril Flexeril Yes [place] TABS TABS [facility] ans Immunizations Ordered Filled Immunization Date Status Comments Sour e Immunization Name Name Influenza Virus 2020-02-22 Completed Universit y of Vaccine Quad .5 mL 00:00:00 [place] [facility] 6+ MO Branch Influenza Virus 2020-02-22 Completed [facility]it y of Vaccine Quad .5 mL 00:00:00 [place] [facility] 6+ MO Branch Influenza Virus 2020-02-22 Completed [facility]it y of Vaccine Quad .5 mL 00:00:00 [place] [facility] IM 6+ MO Branch Influenza Virus 2020-02-22 Completed [facility]it y of Vaccine Quad .5 mL 00:00:00 [place] [facility] IM 6+ MO Branch Influenza Virus 2020-02-22 Completed [facility]it y of Vaccine Quad .5 mL 00:00:00 [place] [facility] IM 6+ MO Branch Influenza Virus 2020-02-22 Completed [facility]it y of Vaccine Quad .5 mL 00:00:00 [place] [facility] IM 6+ MO Branch Influenza Virus 2020-02-22 Completed [facility]it y of Vaccine Quad .5 mL 00:00:00 [place] [facility] IM 6+ MO Branch Influenza Virus 2020-02-22 Completed [facility]it y of Vaccine Quad .5 mL 00:00:00 [place] [facility] IM 6+ MO Branch Influenza Virus 2020-02-22 Completed [facility]it y of Vaccine Quad .5 mL 00:00:00 [place] [facility] IM 6+ MO Branch Influenza Virus 2020-02-22 Completed [facility]it y of Vaccine Quad .5 mL 00:00:00 [place] [facility] IM 6+ MO Branch Influenza Virus 2020-02-22 Completed [facility]it y of Vaccine Quad .5 mL 00:00:00 [place] [facility] IM 6+ MO Branch Influenza Virus 2020-02-22 Completed Universit y of Vaccine Quad .5 mL 00:00:00 [place] [facility] IM 6+ MO Branch Influenza Virus 2020-02-22 Completed [facility]it y of Vaccine Quad .5 mL 00:00:00 [place] [facility] IM 6+ MO Branch Influenza Virus 2020-02-22 Completed Universit y of Vaccine Quad .5 mL 00:00:00 [place] [facility] IM 6+ MO Branch Influenza Virus 2020-02-22 Completed [facility]it y of Vaccine Quad .5 mL 00:00:00 [place] [facility] IM 6+ MO Branch Influenza Virus 2020-02-22 Completed Universit y of Vaccine Quad .5 mL 00:00:00 [place] [facility] IM 6+ MO Branch Influenza Virus 2020-02-22 Completed Universit y of Vaccine Quad .5 mL 00:00:00 [place] [facility] IM 6+ MO Branch Influenza Virus 2020-02-22 Completed Universit y of Vaccine Quad .5 mL 00:00:00 [place] [facility] IM 6+ MO Branch Influenza Virus 2020-02-22 Completed [facility]it y of Vaccine Quad .5 mL 00:00:00 [place] [facility] IM 6+ MO Branch Influenza Virus 2020-02-22 Completed [facility]it y of Vaccine Quad .5 mL 00:00:00 [place] [facility] IM 6+ MO Branch Influenza Virus 2020-02-22 Completed Universit y of Vaccine Quad .5 mL 00:00:00 [place] [facility] IM 6+ MO Branch Influenza Virus 2020-02-22 Completed [facility]it y of Vaccine Quad .5 mL 00:00:00 [place] [facility] IM 6+ MO Branch Influenza Virus 2020-02-22 Completed Universit y of Vaccine Quad .5 mL 00:00:00 [place] [facility] IM 6+ MO Branch Influenza Virus 2020-02-22 Completed [facility]it y of Vaccine Quad .5 mL 00:00:00 [place] [facility] IM 6+ MO Branch Influenza Virus 2020-02-22 Completed [facility]it y of Vaccine Quad .5 mL 00:00:00 [place] [facility] IM 6+ MO Branch Influenza Virus 2020-02-22 Completed [facility]it y of Vaccine Quad .5 mL 00:00:00 [place] [facility] IM 6+ MO Branch Influenza Virus 2020-02-22 Completed Universit y of Vaccine Quad .5 mL 00:00:00 [place] [facility] IM 6+ MO Branch Influenza Virus 2020-02-22 Completed [facility]it y of Vaccine Quad .5 mL 00:00:00 [place] [facility] IM 6+ MO Branch Influenza Virus 2020-02-22 Completed Universit y of Vaccine Quad .5 mL 00:00:00 [place] [facility] IM 6+ MO Branch Influenza Virus 2020-02-22 Completed [facility]it y of Vaccine Quad .5 mL 00:00:00 [place] [facility] IM 6+ MO Branch Influenza Virus 2020-02-22 Completed Universit y of Vaccine Quad .5 mL 00:00:00 [place] [facility] IM 6+ MO Branch Influenza Virus 2020-02-22 Completed Universit y of Vaccine Quad .5 mL 00:00:00 [place] [facility] IM 6+ MO Branch Influenza Virus 2020-02-22 Completed [facility]it y of Vaccine Quad .5 mL 00:00:00 [place] [facility] IM 6+ MO Branch Influenza Virus 2020-02-22 Completed Universit y of Vaccine Quad .5 mL 00:00:00 [place] [facility] IM 6+ MO Branch Influenza Virus 2020-02-22 Completed Universit y of Vaccine Quad .5 mL 00:00:00 [place] [facility] 6+ MO Branch Influenza Virus 2019-02-21 Completed Universit y of Vaccine Quad .5 mL 00:00:00 [place] [facility] IM 6+ MO Branch Influenza Virus 2019-02-21 Completed Universit y of Vaccine Quad .5 mL 00:00:00 [place] [facility] IM 6+ MO Branch Influenza Virus 2019-02-21 Completed Universit y of Vaccine Quad .5 mL 00:00:00 [place] [facility] IM 6+ MO Branch Influenza Virus 2019-02-21 Completed Universit y of Vaccine Quad .5 mL 00:00:00 [place] [facility] IM 6+ MO Branch Influenza Virus 2019-02-21 Completed Universit y of Vaccine Quad .5 mL 00:00:00 [place] [facility] IM 6+ MO Branch Influenza Virus 2019-02-21 Completed Universit y of Vaccine Quad .5 mL 00:00:00 [place] [facility] IM 6+ MO Branch Influenza Virus 2019-02-21 Completed Universit y of Vaccine Quad .5 mL 00:00:00 [place] [facility] IM 6+ MO Branch Influenza Virus 2019-02-21 Completed Universit y of Vaccine Quad .5 mL 00:00:00 [place] [facility] IM 6+ MO Branch Influenza Virus 2019-02-21 Completed Universit y of Vaccine Quad .5 mL 00:00:00 [place] [facility] IM 6+ MO Branch Influenza Virus 2019-02-21 Completed Universit y of Vaccine Quad .5 mL 00:00:00 [place] [facility] IM 6+ MO Branch Influenza Virus 2019-02-21 Completed Universit y of Vaccine Quad .5 mL 00:00:00 [place] [facility] IM 6+ MO Branch Influenza Virus 2019-02-21 Completed Universit y of Vaccine Quad .5 mL 00:00:00 [place] [facility] IM 6+ MO Branch Influenza Virus 2019-02-21 Completed Universit y of Vaccine Quad .5 mL 00:00:00 [place] [facility] IM 6+ MO Branch Influenza Virus 2019-02-21 Completed Universit y of Vaccine Quad .5 mL 00:00:00 [place] [facility] IM 6+ MO Branch Influenza Virus 2019-02-21 Completed Universit y of Vaccine Quad .5 mL 00:00:00 [place] [facility] IM 6+ MO Branch Influenza Virus 2019-02-21 Completed Universit y of Vaccine Quad .5 mL 00:00:00 [place] [facility] IM 6+ MO Branch Influenza Virus 2019-02-21 Completed Universit y of Vaccine Quad .5 mL 00:00:00 [place] [facility] IM 6+ MO Branch Influenza Virus 2019-02-21 Completed Universit y of Vaccine Quad .5 mL 00:00:00 [place] [facility] IM 6+ MO Branch Influenza Virus 2019-02-21 Completed Universit y of Vaccine Quad .5 mL 00:00:00 [place] [facility] IM 6+ MO Branch Influenza Virus 2019-02-21 Completed Universit y of Vaccine Quad .5 mL 00:00:00 [place] [facility] IM 6+ MO Branch Influenza Virus 2019-02-21 Completed Universit y of Vaccine Quad .5 mL 00:00:00 [place] [facility] IM 6+ MO Branch Influenza Virus 2019-02-21 Completed Universit y of Vaccine Quad .5 mL 00:00:00 [place] [facility] IM 6+ MO Branch Influenza Virus 2019-02-21 Completed Universit y of Vaccine Quad .5 mL 00:00:00 [place] [facility] IM 6+ MO Branch Influenza Virus 2019-02-21 Completed Universit y of Vaccine Quad .5 mL 00:00:00 [place] [facility] IM 6+ MO Branch Influenza Virus 2019-02-21 Completed Universit y of Vaccine Quad .5 mL 00:00:00 [place] [facility] IM 6+ MO Branch Influenza Virus 2019-02-21 Completed Universit y of Vaccine Quad .5 mL 00:00:00 [place] [facility] IM 6+ MO Branch Influenza Virus 2019-02-21 Completed Universit y of Vaccine Quad .5 mL 00:00:00 [place] [facility] IM 6+ MO Branch Influenza Virus 2019-02-21 Completed Universit y of Vaccine Quad .5 mL 00:00:00 [place] [facility] IM 6+ MO Branch Influenza Virus 2019-02-21 Completed Universit y of Vaccine Quad .5 mL 00:00:00 [place] [facility] IM 6+ MO Branch Influenza Virus 2019-02-21 Completed Universit y of Vaccine Quad .5 mL 00:00:00 [place] [facility] IM 6+ MO Branch Influenza Virus 2019-02-21 Completed Universit y of Vaccine Quad .5 mL 00:00:00 [place] [facility] IM 6+ MO Branch Influenza Virus 2019-02-21 Completed Universit y of Vaccine Quad .5 mL 00:00:00 [place] [facility] IM 6+ MO Branch Influenza Virus 2019-02-21 Completed Universit y of Vaccine Quad .5 mL 00:00:00 [place] [facility] IM 6+ MO Branch Influenza Virus 2019-02-21 Completed Universit y of Vaccine Quad .5 mL 00:00:00 [place] [facility] IM 6+ MO Branch Influenza Virus 2019-02-21 Completed Universit y of Vaccine Quad .5 mL 00:00:00 [place] [facility] IM 6+ MO Branch Influenza Virus 2019-02-21 Completed Universit y of Vaccine Quad .5 mL 00:00:00 [place] [facility] IM 6+ MO Branch Influenza Virus 2019-02-21 Completed Universit y of Vaccine Quad .5 mL 00:00:00 [place] [facility] IM 6+ MO Branch Influenza Virus 2019-02-21 Completed Universit y of Vaccine Quad .5 mL 00:00:00 [place] [facility] IM 6+ MO Branch Influenza Virus 2019-02-21 Completed Universit y of Vaccine Quad .5 mL 00:00:00 [place] [facility] IM 6+ MO Branch Influenza Virus 2019-02-21 Completed Universit y of Vaccine Quad .5 mL 00:00:00 [place] [facility] IM 6+ MO Branch Influenza Virus 2019-02-21 Completed Universit y of Vaccine Quad .5 mL 00:00:00 [place] [facility] IM 6+ MO Branch Influenza Virus 2019-02-21 Completed Universit y of Vaccine Quad .5 mL 00:00:00 [place] [facility] IM 6+ MO Branch Influenza Virus 2019-02-21 Completed Universit y of Vaccine Quad .5 mL 00:00:00 [place] [facility] IM 6+ MO Branch Influenza Virus 2019-02-21 Completed Universit y of Vaccine Quad .5 mL 00:00:00 [place] [facility] IM 6+ MO Branch Influenza Virus 2019-02-21 Completed Universit y of Vaccine Quad .5 mL 00:00:00 [place] [facility] IM 6+ MO Branch Influenza Virus 2019-02-21 Completed Universit y of Vaccine Quad .5 mL 00:00:00 [place] [facility] IM 6+ MO Branch Influenza Virus 2019-02-21 Completed Universit y of Vaccine Quad .5 mL 00:00:00 [place] [facility] IM 6+ MO Branch Influenza Virus 2019-02-21 Completed Universit y of Vaccine Quad .5 mL 00:00:00 [place] [facility] IM 6+ MO Branch Influenza Virus 2019-02-21 Completed Universit y of Vaccine Quad .5 mL 00:00:00 [place] [facility] IM 6+ MO Branch Influenza Virus 2019-02-21 Completed Universit y of Vaccine Quad .5 mL 00:00:00 [place] [facility] IM 6+ MO Branch Influenza Virus 2019-02-21 Completed Universit y of Vaccine Quad .5 mL 00:00:00 [place] [facility] IM 6+ MO Branch Influenza Virus 2019-02-21 Completed Universit y of Vaccine Quad .5 mL 00:00:00 [place] [facility] IM 6+ MO Branch Influenza Virus 2019-02-21 Completed Universit y of Vaccine Quad .5 mL 00:00:00 [place] [facility] IM 6+ MO Branch Influenza Virus 2019-02-21 Completed Universit y of Vaccine Quad .5 mL 00:00:00 [place] [facility] IM 6+ MO Branch Influenza Virus 2019-02-21 Completed Universit y of Vaccine Quad .5 mL 00:00:00 [place] [facility] IM 6+ MO Branch Influenza Virus 2019-02-21 Completed Universit y of Vaccine Quad .5 mL 00:00:00 [place] [facility] IM 6+ MO Branch Influenza Virus 2019-02-21 Completed Universit y of Vaccine Quad .5 mL 00:00:00 [place] [facility] IM 6+ MO Branch Influenza Virus 2019-02-21 Completed Universit y of Vaccine Quad .5 mL 00:00:00 [place] [facility] IM 6+ MO Branch Influenza Virus 2019-02-21 Completed Universit y of Vaccine Quad .5 mL 00:00:00 [place] [facility] IM 6+ MO Branch Influenza Virus 2019-02-21 Completed Universit y of Vaccine Quad .5 mL 00:00:00 [place] [facility] IM 6+ MO Branch Influenza Virus 2019-02-21 Completed Universit y of Vaccine Quad .5 mL 00:00:00 [place] [facility] IM 6+ MO Branch Influenza Virus 2019-02-21 Completed Universit y of Vaccine Quad .5 mL 00:00:00 [place] [facility] IM 6+ MO Branch Influenza Virus 2019-02-21 Completed Universit y of Vaccine Quad .5 mL 00:00:00 [place] [facility] IM 6+ MO Branch Influenza Virus 2019-02-21 Completed Universit y of Vaccine Quad .5 mL 00:00:00 [place] [facility] IM 6+ MO Branch Influenza Virus 2019-02-21 Completed Universit y of Vaccine Quad .5 mL 00:00:00 [place] [facility] IM 6+ MO Branch Influenza Virus 2019-02-21 Completed Universit y of Vaccine Quad .5 mL 00:00:00 [place] [facility] IM 6+ MO Branch Influenza Virus 2019-02-21 Completed Universit y of Vaccine Quad .5 mL 00:00:00 [place] [facility] IM 6+ MO Branch Influenza Virus 2019-02-21 Completed Universit y of Vaccine Quad .5 mL 00:00:00 [place] [facility] IM 6+ MO Branch Influenza Virus 2019-02-21 Completed Universit y of Vaccine Quad .5 mL 00:00:00 [place] [facility] IM 6+ MO Branch Influenza Virus 2019-02-21 Completed Universit y of Vaccine Quad .5 mL 00:00:00 [facility] IM 6+ MO Branch Influenza Virus 2019-02-21 Completed Universit y of Vaccine Quad .5 mL 00:00:00 [facility] IM 6+ MO Branch Influenza Virus 2019-02-21 Completed Universit y of Vaccine Quad .5 mL 00:00:00 [facility] IM 6+ MO Branch Influenza Virus 2019-02-21 Completed Universit y of Vaccine Quad .5 mL 00:00:00 [facility] IM 6+ MO Branch Influenza Virus 2019-02-21 Completed Universit y of Vaccine Quad .5 mL 00:00:00 [facility] IM 6+ MO Branch Influenza Virus 2019-02-21 Completed Universit y of Vaccine Quad .5 mL 00:00:00 [facility] 6+ MO Branch Influenza Virus 2019-02-21 Completed Universit y of Vaccine Quad .5 mL 00:00:00 [facility] 6+ MO Branch Influenza Virus 2019-02-21 Completed Universit y of Vaccine Quad .5 mL 00:00:00 [facility] 6+ MO Branch Influenza Virus 2019-02-21 Completed Universit y of Vaccine Quad .5 mL 00:00:00 [facility] 6+ MO Branch Influenza Virus 2019-02-21 Completed Universit y of Vaccine Quad .5 mL 00:00:00 [facility] 6+ MO Branch Influenza Virus 2019-02-21 Completed Universit y of Vaccine Quad .5 mL 00:00:00 [facility] 6+ MO Branch Vital Signs Vital Name Observation Time Observation Value Comments Source Systolic blood 2022-02-02 123 mm[Hg] [place] of pressure 08:06:00 [facility] Diastolic blood 2022-02-02 82 mm[Hg] [place] o f pressure 08:06:00 [facility] Heart rate 2022-02-02 60 /min [facility] 08:06:00 [facility] Respiratory rate 2022-02-02 16 /min [facility] 08:06:00 [facility] Oxygen saturation 2022-02-02 98 /min [facility] in Arterial blood 08:06:00 [facility] [place] [facility] by Pulse oximetry [place] Body temperature 2022-02-02 37.28 Shama [facility] 05:22:00 [facility] Body height 2022-02-02 170.2 cm [facility] 05:22:00 [facility] Body weight 2022-02-02 97.523 kg University of 05:22:00 [facility] BMI 2022-02-02 33.67 kg/m2 University of 05:22:00 [facility] Systolic blood 2021-12-24 117 mm[Hg] University of pressure 15:49:00 [facility] Diastolic blood 2021-12-24 84 mm[Hg] University o f pressure 15:49:00 [facility] Heart rate 2021-12-24 83 /min University of 15:49:00 [facility] Body temperature 2021-12-24 36.89 Shama University of 15:49:00 [facility] Respiratory rate 2021-12-24 18 /min University of 15:49:00 [facility] Body height 2021-12-24 170.2 cm University of 15:49:00 [facility] Body weight 2021-12-24 101.152 kg University of 15:49:00 [facility] BMI 2021-12-24 34.93 kg/m2 University of 15:49:00 [facility] Oxygen saturation 2021-12-24 98 /min [facility] in Arterial blood 15:49:00 [facility] [place] [facility] by Pulse oximetry Branch Systolic blood 2021-08-03 129 mm[Hg] University of pressure 22:46:00 [facility] Diastolic blood 2021-08-03 97 mm[Hg] University o f pressure 22:46:00 [facility] Heart rate 2021-08-03 89 /min University of 22:46:00 [facility] Respiratory rate 2021-08-03 16 /min University of 22:46:00 [facility] Oxygen saturation 2021-08-03 98 /min [facility] in Arterial blood 22:46:00 [facility] [place] [facility] by Pulse oximetry Branch Body temperature 2021-08-03 37.39 [facility] University of 20:46:00 [facility] Body height 2021-08-03 170.2 cm University of 20:46:00 [facility] Body weight 2021-08-03 106.595 kg University of 20:46:00 [facility] BMI 2021-08-03 36.81 kg/m2 University of 20:46:00 [facility] Systolic blood 2020-07-06 135 mm[Hg] University of pressure 00:14:00 [facility] Diastolic blood 2020-07-06 96 mm[Hg] University o f pressure 00:14:00 [facility] Heart rate 2020-07-06 68 /min University of 00:14:00 [facility] Body temperature 2020-07-06 37.11 [place] University of 00:14:00 [facility] Branch Body height 2020-07-06 170.2 cm University of 00:14:00 [facility] Body weight 2020-07-06 99.791 kg University of 00:14:00 [facility] BMI 2020-07-06 34.46 kg/m2 University of 00:14:00 [facility] Oxygen saturation 2020-07-06 97 /min University of in Arterial blood 00:14:00 [facility] [place] [facility] by Pulse oximetry Branch Systolic blood 2020-05-13 110 mm[Hg] University of pressure 19:39:00 [facility] Branch Diastolic blood 2020-05-13 70 mm[Hg] University o f pressure 19:39:00 [facility] Body weight 2020-05-13 106.595 kg University of 19:39:00 [facility] BMI 2020-05-13 36.81 kg/m2 University of 19:39:00 [facility] Systolic blood 2020-05-11 121 mm[Hg] University of pressure 19:00:00 [facility] Branch Diastolic blood 2020-05-11 78 mm[Hg] University o f pressure 19:00:00 [facility] Heart rate 2020-05-11 58 /min University of 19:00:00 [facility] Respiratory rate 2020-05-11 18 /min University of 19:00:00 [facility] Oxygen saturation 2020-05-11 92 /min University of in Arterial blood 19:00:00 [facility] [place] [facility] by Pulse oximetry Branch Body temperature 2020-05-11 37.33 [place] University of 16:05:00 [facility] Body weight 2020-05-11 99.791 kg University of 16:05:00 [facility] BMI 2020-05-11 34.46 kg/m2 University of 16:05:00 [facility] Systolic blood 2020-01-22 137 mm[Hg] University of pressure 16:11:00 [place] [facility] Branch Diastolic blood 2020-01-22 91 mm[Hg] University o f pressure 16:11:00 [facility] Heart rate 2020-01-22 90 /min University of 16:09:00 [facility] Body temperature 2020-01-22 37 Shama [facility] of 16:09:00 [place] [facility] Respiratory rate 2020-01-22 17 /min University of 16:09:00 [facility] Body height 2020-01-22 170.2 cm University of 16:09:00 [facility] Body weight 2020-01-22 99.791 kg University of 16:09:00 [facility] BMI 2020-01-22 34.46 kg/m2 University of 16:09:00 [facility] Oxygen saturation 2020-01-22 99 /min University of in Arterial blood 16:09:00 [facility] by Pulse oximetry Branch Systolic blood 2019-12-08 136 mm[Hg] University of pressure 21:42:00 [facility] Branch Diastolic blood 2019-12-08 88 mm[Hg] University o f pressure 21:42:00 [facility] Heart rate 2019-12-08 86 /min University of 21:40:00 [facility] Body temperature 2019-12-08 36.61 [place] University of 21:40:00 [facility] Respiratory rate 2019-12-08 17 /min University of 21:40:00 [facility] Body height 2019-12-08 170.2 cm University of 21:40:00 [facility] Body weight 2019-12-08 99.791 kg University of 21:40:00 [facility] BMI 2019-12-08 34.46 kg/m2 University of 21:40:00 [facility] Oxygen saturation 2019-12-08 97 /min University of in Arterial blood 21:40:00 [facility] [place] [facility] by Pulse oximetry Branch Systolic blood 2019-08-28 126 mm[Hg] University of pressure 20:54:00 [facility] Diastolic blood 2019-08-28 89 mm[Hg] University o f pressure 20:54:00 [facility] Heart rate 2019-08-28 78 /min University of 20:54:00 [facility] Body temperature 2019-08-28 37.39 [place] University of 20:54:00 [facility] Respiratory rate 2019-08-28 18 /min University of 20:54:00 [facility] Body height 2019-08-28 170.2 cm University of 20:54:00 [facility] Body weight 2019-08-28 104.327 kg University of 20:54:00 [facility] BMI 2019-08-28 36.02 kg/m2 University of 20:54:00 [facility] Oxygen saturation 2019-08-28 98 /min [facility] in Arterial blood 20:54:00 [facility] alma delia by Pulse oximetry Branch BP Systolic 2018-01-10 124 mm[Hg] Location: ROD; [place] [facility] 15:26:00 Position: Sitting BP Diastolic 2018-01-10 86 mm[Hg] Location: [place]; [place] [facility] 15:26:00 Position: Sitting Height 2018-01-10 67 [in_us] [facility] 15:26:00 Body Mass Index 2018-01-10 37.28 kg/m2 [facility] Calculated 15:26:00 Weight 2018-01-10 238 [lb_av] [facility] 15:26:00 Heart Rate 2018-01-10 73 /min Location: L [facility] 15:26:00 Radial; Quality: Normal Procedures Procedure Date / Time Performing Clinician Source Performed COMP. METABOLIC PANEL 2022-02-02 05:35:00 Tory Rose [facility] ([id number]) Medical Branch CBC WITH DIFF 2022-02-02 05:35:00 [facility] URINALYSIS 2022-02-02 05:35:00 [facility] POCT TEST 2022-02-02 05:34:00 Tory Rose [facility] Medical [place] CONSENT/REFUSAL FOR 2022-02-02 05:12:31 Doctor Unassigned, No [facility] [place] [facility] Name Medical Branch CONSENT/REFUSAL FOR 2021-12-24 15:45:49 Doctor Unassigned, No [facility] [place] [facility] TREATMENT Name Medical Branch XR CHEST 1 VW 2021-08-03 21:54:00 Chayito Humphreys [facility] XR SHOULDER 2+ VW RIGHT 2021-08-03 21:54:00 Chayito Humphreys [facility] CONSENT/REFUSAL FOR 2021-08-03 20:43:03 Doctor Unassigned, No [facility] [place] DIAG[facility] TREATMENT Name Medical Branch NOTICE OF PRIVACY 2021-08-03 20:42:40 Doctor Unassigned, No [facility] PRACTICES Name Medical Branch COVID-19 (ID NOW RAPID 2020-05-11 16:42:00 Seth Diaz [facility] TESTING) Medical Branch HEPATIC FUNCTION PANEL 2020-05-11 16:32:00 Seth Diaz [facility] ([id number]) (ALB,T.PRO,BILI Medical Branch T,BU/BC,ALT,AST,ALK PHOS) BASIC METABOLIC PANEL 2020-05-11 16:32:00 Seth Diaz [facility] (NA, K, CL, CO2, Medical Branch GLUCOSE, BUN, CREATININE, CA) CBC WITH DIFF 2020-05-11 16:32:00 Joe Seth [facility] POCT TEST 2020-05-11 16:32:00 Seth Diaz [facility] URINALYSIS 2020-05-11 16:31:00 Joe Seth [facility] NOTICE OF PRIVACY 2020-05-11 15:59:47 Doctor Unassigned, No [facility] PRACTICES Name Medical Branch CONSENT/REFUSAL FOR 2020-05-11 15:56:15 Doctor Unassigned, [facility] Name [facility] Branch CORONAVIRUS COVID-19 2019-08-28 20:50:00 Guerrero Ch [facility] TESTING [facility] Branch [QL] CBC (INCLUDES 2018-01-10 00:00:00 [place] [facility] DIFF/PLT) [[facility]] CMP W/EGFR 2018-01-10 00:00:00 [place] [facility] [[facility]] HEMOGLOBIN A1c 2018-01-10 00:00:00 [place] [facility] [[facility]] LIPID PANEL 2018-01-10 00:00:00 [place] [facility] [[facility]] MAGNESIUM 2018-01-10 00:00:00 [place] [facility] [QL] TSH, 3RD 2018-01-10 00:00:00 [place] [facility] GENERATION PAIN MANAGEMENT 2017-07-05 06:01:00 Doctor Unassigned, No [facility] AGREEMENT & INFORMED Name Medical [facility] critical access hospital CONSENT History of Tubal [place] [facility] Ligation Encounters Start End Encounter Admission Attending Care Care Encounter Source Date/Time Date/Time Type Type Clinicians Facility Department ID 2021-03-22 Emergency [facility] [id number] Univers 12:16:14 [facility] 2022-02-02 2022-02-02 Emergency X TORY ROSE [facility] ERT 1 [id number] Univers 00:26:00 03:10:00 TORY ROSE sandra of [facility] 2022-02-02 2022-02-02 Emergency Rose, [facility] [id number] Univers 00:26:00 03:10:00 Tory SHARMA [id number] i ty of [facility] 4.2.[place].2.[place] [phone] [facility] [address] [place] 2021-12-24 2021-12-24 Urgent [facility], [facility] 1.2.840.114 [id number] Univers 11:00:00 11:20:00 Care Ranpr HEALTH 350.1.13.10 it y of [place] 4.2.7.2.686 Brendan as LAURO?BLEA [phone] [facility] [address] [place] MEDICAL OFFICE [facility] 2021-12-24 2021-12-24 Outpatient R APOLLO [facility] [id number] Univers 11:00:00 11:00:00 MERRY [facility] 2021-12-24 2021-12-24 Orders Doctor ALEXANDER 1.2.840.114 [id number] Univers 00:00:00 00:00:00 Only Unassigned, ARUNA 350.1.13.10 ity of [place] [facility] 4.2.7.2.686 Brendan as [phone] [facility] [address] [place] 2021-12-24 2021-12-24 Letter Provider, [facility] 1.2.172.577 [id number] Univers 00:00:00 00:00:00 (Out) Ang Db HEALTH 350.1.13.10 it y of Urgent Care [place] 4.2.7.2.686 [place] LAURO?BLEA [phone] [facility] [address] [place] MEDICAL OFFICE [facility] 2021-08-09 2021-08-09 Davey Escobar [facility] 1.2.840.114 [id number] Univers 00:00:00 00:00:00 Yasmani HEALTH 350.1.13.10 it y of [place] 4.2.7.2.686 Brendan as LAURO?BLEA [phone] [facility] [address] [place] MEDICAL OFFICE BUILDING 2021-08-03 2021-08-03 Emergency X Chayito HUMPHREYS [facility] ERT [id number] Univers 15:53:00 18:37:00 ity of [facility] 2021-08-03 2021-08-03 Emergency Chayito Humphreys [facility] 1.2.840.114 [id number] Univers 15:53:00 18:37:00 Sonia SHARMA 350.1.13.10 i ty of [place].7.2.[place] [phone] [facility] 084 Branch 2021-05-30 2021-05-30 Telephone ALEXANDER Gonzalez 1.2.006.017 [id number] Univers 00:00:00 00:00:00 Anneliese ARUNA 350.1.13.10 it y of [facility] 4.2.7.2.686 Brendan as [phone] [facility] [address] [place] 2021-05-28 2021-05-28 Laboratory Only, Ang Db Test [facility] 1.2.8 40.114 [id number] Univers 12:45:00 13:00:00 Only Brandon [facility] 350.1.13.10 ity of [place] 4.2.7.2.686 Brendan as LAURO?BLEA [phone] [facility] [address] [place] MEDICAL OFFICE BUILDING 2021-05-28 2021-05-28 Outpatient R BRANDON [facility] [id number] Univers 12:45:00 12:45:00 GUERRERO ity [facility] 2021-05-12 2021-05-12 [facility] 1.2.840.114 [id number] Univers 00:00:00 00:00:00 Yasmani HEALTH 350.1.13.10 it y of [place] 4.2.7.2.686 Brendan as LAURO?BLEA [phone] [facility] [address] [place] MEDICAL OFFICE BUILDING 2021-04-16 2021-04-16 [facility] 1.2.840.114 [id number] Univers 00:00:00 00:00:00 Yasmani HEALTH 350.1.13.10 it y of [place] 4.2.7.2.686 Brendan as LAURO?BLEA [id number] [address] MEDICAL OFFICE BUILDING 2021-04-09 2021-04-09 [facility] 1.2.840.114 [id number] Univers 00:00:00 00:00:00 Yasmani HEALTH 350.1.13.10 it y of [place] 4.2.7.2.686 Brendan as LAURO?BLEA [phone] [facility] [address] OFFICE [facility] 2021-04-02 2021-04-02 [facility] 1.2.840.114 [id number] Univers 00:00:00 00:00:00 Yasmani HEALTH 350.1.13.10 it y of [place] 4.2.7.2.686 Brendan as PROFESSIO [phone] [address] ONE 2021-02-25 2021-02-25 [facility] 1.2.840.114 [id number] Univers 00:00:00 00:00:00 Yasmani [facility] 350.1.13.10 it y of [place] 4.2.7.2.686 Brendan as Lauro?Blea [phone] [address] 2021-01-28 2021-01-28 [facility] 1.2.840.114 [id number] Univers 00:00:00 00:00:00 Yasmani Sharma 350.1.13.10 i ty [place] Profess[place] [phone] [address] 2021-01-09 2021-01-09 Outpatient Betsy ESCOBAR [facility] [id number] Univers 13:30:00 13:30:00 YASMANI olguin [facility] 2020-12-23 2020-12-23 [facility] 1.2.840.114 [id number] Univers 00:00:00 00:00:00 Yasmani Sharma 350.1.13.10 i ty [place] [phone] [address] 2020-12-19 2020-12-19 Outpatient Betsy ESCOBAR [facility] [id number] Univers 14:45:00 14:45:00 YASMANI sandra [facility] 2020-12-12 2020-12-12 [facility] [id number] Univers 16:30:00 16:30:00 DHRUV sandra [facility] 2020-12-12 2020-12-12 [facility] 1.2.840.114 [id number] Univers 00:00:00 00:00:00 Yasmani Health 350.1.13.10 it y of [place] 4.2.7.2.686 Brendan as Professio [phone] [address] 2020-12-11 2020-12-11 Outpatient [facility] [id number] Univers 16:30:00 16:30:00 DHRUV olguin [facility] 2020-12-10 2020-12-10 [facility] 1.2.840.114 [id number] Univers 00:00:00 00:00:00 Yasmani [facility] 350.1.13.10 it y of [place] 4.2.7.2.686 Brendan as Professio [phone] [address] 2020-10-27 2020-10-27 [facility] 1.2.840.114 [id number] Univers 00:00:00 00:00:00 Yasmani Sharma 350.1.13.10 i ty [place] [phone] [address] 2020-10-17 2020-10-17 Telephone Elizabeth Moralez 1.2.840.114 [id number] Univers 00:00:00 00:00:00 , Huma Millan 350.1.13.10 ity of [place].2.[place] [phone] [address] 2020-10-04 2020-10-04 [facility] 1.2.840.114 [id number] Univers 00:00:00 00:00:00 Yasmani Sharma 350.1.13.10 i ty of [place] [phone] Nj dical nal 044 [facility] 2020-09-24 2020-09-24 Davey Escobar [facility] 1.2.840.114 [id number] Univers 00:00:00 00:00:00 [facility] 350.1.13.10 it y of [place] 4.2.7.2.686 Brendan as Professio [phone] Nj dical nal [address] [place] Office [facility] One 2020-08-26 2020-08-26 Davey [facility] 1.2.840.114 [id number] Univers 00:00:00 00:00:00 [facility] 350.1.13.10 it y of [place] 4.2.7.2.686 Brendan as Professio [phone] Nj dical nal 044 [facility] One 2020-08-14 2020-08-14 Zenaidasteven Escobar [facility] 1.2.840.114 [id number] Univers 00:00:00 00:00:00 [facility] 350.1.13.10 it y of [place] 4.2.7.2.686 Brendan as Professio [phone] Nj dical nal 044 [facility] One 2020-08-11 2020-08-11 Zenaidasteven Escobar [facility] 1.2.840.114 [id number] Univers 00:00:00 00:00:00 [facility] 350.1.13.10 it y of [place] 4.2.7.2.686 Brendan as Professio [phone] Nj dical nal [address] [place] [address] One 2020-08-08 2020-08-08 Patient Jayson [facility] 1.2.840.114 [id number] Univers 00:00:00 00:00:00 Outreach Bernardo PRIMARY 350.1.13.10 i ty of Saad [facility] 4.2.7.2.686 [place] [phone] Nj dical [address] [place] 2020-07-18 2020-07-18 Davey Escobar [facility] 1.2.840.114 [id number] Univers 00:00:00 00:00:00 Yasmani [place] 350.1.13.10 i ty of [place].2.[place] [phone] [address] 2020-07-16 2020-07-16 Refill [facility] 1.2.840.114 [id number] Univers 00:00:00 00:00:00 [facility] 350.1.13.10 it y of [place] 4.2.7.2.686 Brendan as Professio [phone] [address] Office [facility] One 2020-07-05 2020-07-05 Urgent Provider, [facility] 1.2.840.114 [id number] Univers 18:10:46 18:30:46 Care Alexander Iglesias [facility] 350.1.13.10 ity of [place] 4.2.7.2.686 Brendan as Professio [phone] [address] Office [facility] One 2020-07-05 2020-07-05 Outpatient R JENNY [facility] [id number] Univers 18:20:00 18:20:00 ALEXANDER [facility] 2020-07-05 2020-07-05 Letter Pcp, [facility] 1.2.840.114 [id number] Univers 00:00:00 00:00:00 (Out) [facility] 350.1.13.10 it y of Does Not [place] 4.2.7.2.686 [place] Profess[place] [phone] [address] One 2020-07-04 2020-07-04 Outpatient R JENNY [facility] [id number] Univers 16:20:00 16:20:00 ALEXANDER [facility] 2020-06-27 2020-06-27 Refill [facility] 1.2.840.114 [id number] Univers 00:00:00 00:00:00 [facility] 350.1.13.10 it y of [place] 4.2.7.2.686 Brendan as Professio [phone] [address] Office [facility] One 2020-06-17 2020-06-17 Refill [facility] 1.2.840.114 [id number] Univers 00:00:00 00:00:00 Yasmani Health 350.1.13.10 it y of [place] 4.2.7.2.686 Brendan as Professio [phone] [address] Office [facility] One 2020-05-13 2020-05-13 Office [facility] 1.2.840.114 [id number] Univers 13:20:34 13:35:34 Visit Yasmani [facility] 350.1.13.10 it y of [place] 4.2.7.2.686 Brendan as Professio [phone] [address] One 2020-05-13 2020-05-13 [facility]patient [facility] [id number] Univers 13:15:00 13:15:00 YASMANI sharif [facility] 2020-05-13 2020-05-13 Letter [facility] 1.2.840.114 [id number] Univers 00:00:00 00:00:00 (Out) [facility] 350.1.13.10 it y of [place] 4.2.7.2.686 Brendan as Professio [phone] [address] One 2020-05-11 2020-05-11 Emergency [facility] 1.2.125.605 [id number] Univers 09:58:00 13:53:00 Seth [place] 350.1.13.10 i ty of [place].2.[place].2.686 [place] [phone] [facility] [address] [place] 2020-05-01 2020-05-01 Outpatient Betsy ESCOBAR [facility] [id number] Univers 09:45:00 09:45:00 YASMANI sandra [facility] 2020-04-29 2020-04-29 Refill [facility] 1.2.840.114 [id number] Univers 00:00:00 00:00:00 Yasmani Sharma 350.1.13.10 i ty of [place] [phone] [address] 2020-04-26 2020-04-26 Refsteven [facility] 1.2.840.114 [id number] Univers 00:00:00 00:00:00 Yasmani Sharma 350.1.13.10 i ty of [place] [phone] [address] 2020-04-17 2020-04-17 Nelida [facility] 1.2.620.697 [id number] Univers 00:00:00 00:00:00 Yasmani Health 350.1.13.10 it y of [place] 4.2.7.2.686 Brendan as Professio [phone] [facility] nal [address] [place] [address] Office [facility] One 2020-04-17 2020-04-17 Davey [facility] 1.2.840.114 [id number] Univers 00:00:00 00:00:00 Yasmani Sharma 350.1.13.10 i ty of [place] [phone] [facility] nal [address] [place] [address] 2020-04-16 2020-04-16 [facility] 1.2.840.114 [id number] Univers 00:00:00 00:00:00 Yasmani Health 350.1.13.10 it y of [place] 4.2.7.2.686 Brendan as Professio [phone] [facility] nal [address] [place] [address] Office [facility] One 2020-04-12 2020-04-12 Davey [facility] 1.2.840.114 [id number] Univers 00:00:00 00:00:00 Yasmani Sharma 350.1.13.10 i ty of [place].2.[place] [phone] [facility] nal [address] [place] [address] 2020-04-10 2020-04-10 [facility] [id number] Univers 12:00:00 12:00:00 YASMANI olguin [facility] 2020-03-21 2020-03-21 Refsteven [facility] 1.2.840.114 [id number] Univers 00:00:00 00:00:00 Yasmani Sharma 350.1.13.10 i ty of [place] [phone] Nj harrison [address] 2020-03-14 2020-03-14 Davey Escobar [facility] 1.2.840.114 [id number] Univers 00:00:00 00:00:00 Yasmani [place] 350.1.13.10 it y of [place] 4.2.7.2.686 Brendan as Professio [phone] [address] 2020-03-11 2020-03-11 Davey [facility] 1.2.840.114 [id number] Univers 00:00:00 00:00:00 Yasmani Sharma 350.1.13.10 i ty of [place].2.[place] [phone] [address] 2020-02-25 2020-02-25 Davey [facility] 1.2.840.114 [id number] Univers 00:00:00 00:00:00 Yasmani Sharma 350.1.13.10 i ty of [place].2.[place] [phone] [address] 2020-02-15 2020-02-15 Davey [facility] 1.2.840.114 [id number] Univers 00:00:00 00:00:00 Yasmani [facility] 350.1.13.10 it y of [place] 4.2.7.2.686 Brendan as Professio [phone] [address] One 2020-01-26 2020-01-26 Davey [facility] 1.2.840.114 [id number] Univers 00:00:00 00:00:00 Yasmani Sharma 350.1.13.10 i ty of [place]2.[place].2.[place] Profess[place] [phone] [address] 2020-01-22 2020-01-22 Urgent Provider, [facility] 1.2.840.114 [id number] Univers 10:52:09 11:49:11 Care Alysa Blood [facility] 350.1.13.10 ity of [place] 4.2.7.2.686 Brendan as Professio [phone] [address] Office Building One 2020-01-22 2020-01-22 Outpatient R CAITIE [facility] [id number] Univers 11:00:00 11:00:00 ALYSA ity of [facility] 2020-01-15 2020-01-15 [facility] 1.2.840.114 [id number] Univers 00:00:00 00:00:00 [facility] 350.1.13.10 it y of [place] 4.2.7.2.686 Brendan as Professio [phone] [address] Office [facility] One 2019-12-20 2019-12-20 Davey [facility] 1.2.840.114 [id number] Univers 00:00:00 00:00:00 Yasmani Sharma 350.1.13.10 i ty [place] [phone] [address] 2019-12-13 2019-12-13 Davey [facility] 1.2.840.114 [id number] Univers 00:00:00 00:00:00 Yasmani Health 350.1.13.10 it y of [place] 4.2.7.2.686 Brendan as Professio [phone] [address] Office [facility] One 2019-12-08 2019-12-08 Urgent Provider, [facility] Urgent Care [facility] 1.2.840.114 [id number] Univers 16:38:24 16:58:24 Alysa Harris [facility] 350.1.13.10 ity of [place] 4.2.7.2.686 Brendan as Professio [phone] [address] Office [facility] One 2019-12-08 2019-12-08 Outpatient R [facility] [id number] Univers 16:20:00 16:20:00 ity of [facility] 2019-12-06 2019-12-06 [facility] 1.2.840.114 [id number] Univers 00:00:00 00:00:00 Yasmani Health 350.1.13.10 it y of [place] 4.2.7.2.686 Brendan as Professio [phone] [address] 2019-11-30 2019-11-30 Telephone [facility] 1.2.811.918 [id number] Univers 00:00:00 00:00:00 Yasmani Health 350.1.13.10 it y of [place] 4.2.7.2.686 Brendan as Professio [phone] [address] 2019-11-23 2019-11-23 Refsteven [facility]EAST[facility] 1.2.840.114 [id number] Univers 00:00:00 00:00:00 Yasmani Sharma 350.1.13.10 i ty of [place] [phone] [address] 2019-11-20 2019-11-20 [facility] [id number] Univers 10:00:00 10:00:00 YASMANI itsandra of [facility] 2019-11-20 2019-11-20 Telemedici [facility] 1.2.840.114 [id number] Univers 06:57:45 07:12:45 ne Visit Yasmani Sharma 350.1.13.10 ity of [place].2.[place].2.[place] Profess[place] [phone] [address] 2019-11-09 2019-11-09 Refstveen EscobarEAST[facility] 1.2.840.114 [id number] Univers 00:00:00 00:00:00 Yasmani Health 350.1.13.10 it y of [place] 4.2.7.2.686 Brendan as Professio [phone] [address] 2019-11-09 2019-11-09 Telephone [facility] 1.2.345.397 [id number] Univers 00:00:00 00:00:00 Yasmani Health 350.1.13.10 it y of [place] 4.2.7.2.686 Brendan as Professio [phone] [facility] nal [address] [place] [address] Office [facility] One 2019-09-26 2019-09-26 Outpatient R KENNY [facility] [id number] Univers 08:00:00 08:00:00 YASMANI williesandra of [facility] 2019-09-26 2019-09-26 Telemedici [facility] 1.2.840.114 [id number] Univers 06:58:07 07:13:07 ne Visit Yasmani [place] 350.1.13.10 ity of [place] Profess[place] [phone] [address] 2019-09-11 2019-09-11 Davey [facility] 1.2.840.114 [id number] Univers 00:00:00 00:00:00 Yasmani Health 350.1.13.10 it y of [place] 4.2.7.2.686 Brendan as Professio [phone] [address] One 2019-09-11 2019-09-11 Davey [facility] 1.2.840.114 [id number] Univers 00:00:00 00:00:00 Yasmani Health 350.1.13.10 it y of [place] 4.2.7.2.686 Brendan as Professio [phone] [address] One 2019-09-05 2019-09-05 Davey [facility] 1.2.840.114 [id number] Univers 00:00:00 00:00:00 Yasmani Health 350.1.13.10 it y of [place] 4.2.7.2.686 Brendan as Professio [phone] [address] One 2019-08-31 2019-08-31 Davey [facility] 1.2.840.114 [id number] Univers 00:00:00 00:00:00 Yasmani Health 350.1.13.10 it y of [place] 4.2.7.2.686 Brendan as Professio [phone] [address] Office [facility] One 2019-08-29 2019-08-29 Meredith Ch [facility] 1.2.840.114 [id number] Univers 00:00:00 00:00:00 (Out) [facility] 350.1.13.10 it y of [place] 4.2.7.2.686 Brendan as Professio [phone] [address] Office [facility] One 2019-08-29 2019-08-29 Telephone Pob1, Acute [facility] 1.2.840.114 [id number] Univers 00:00:00 00:00:00 [facility] 350.1.13.10 [facility]y of [place] [id number] Brendan as Professio [phone] [address] Office [facility] 2019-08-28 2019-08-28 Urgent Pob1, Acute Care Clinic [facility] 1. 2.840.114 [id number] Univers 15:41:59 16:33:28 [facility] Caitie [facility] 350.1.13.10 ity of [place] [id number] Brendan as Professio [phone] [address] One 2019-08-28 2019-08-28 Outpatient R [facility] [id number] Univers 15:40:00 15:40:00 ALYSA ity of [facility] 2019-08-28 2019-08-28 [facility]phone [facility] [id number] [id number] Univers 00:00:00 00:00:00 [facility] 350.1.13.10 it y of [place] 4.2.7.2.686 Brendan as Professio [phone] [address] One 2019-08-11 2019-08-11 [facility]phone [facility] 1.2.670.120 [id number] Univers 00:00:00 00:00:00 [facility] 350.1.13.10 it y of [place] 4.2.7.2.686 Brendan as Professio [phone] [address] One 2019-08-10 2019-08-10 [facility]ill [facility] 1.2.840.114 [id number] Univers 00:00:00 00:00:00 [facility] 350.1.13.10 it y of [place] 4.2.7.2.686 Brendan as Professio [phone] Nj dical nal [address] [place] [address] Office Building One 2019-08-08 2019-08-08 Refsteven Escobar [facility] 1.2.840.114 [id number] Univers 00:00:00 00:00:00 [facility] 350.1.13.10 it y of [place] [id number] Brendan as Professio [phone] [place] adalidal nal [address] [place] [address] Office [facility] One 2019-08-04 2019-08-04 [facility] 1.2.840.114 [id number] Univers 00:00:00 00:00:00 [facility] 350.1.13.10 it y of [place] 4.2.7.2.686 Brendan as Professio [phone] [place] adalidal nal [address] [place] [address] One 2019-07-13 2019-07-13 [facility] 1.2.840.114 [id number] Univers 00:00:00 00:00:00 [facility] 350.1.13.10 it y of [place] 4.2.7.2.686 Brendan as Professio [phone] Nj adalidal nal [address] [place] [address] Office [facility] One 2019-07-10 2019-07-10 [facility] 1.2.840.114 [id number] Univers 00:00:00 00:00:00 [facility] 350.1.13.10 it y of [place] 4.2.7.2.686 Brendan as Professio [phone] [facility] [address] [place] [address] Office [facility] One 2019-07-03 2019-07-03 [facility] 1.2.840.114 [id number] Univers 00:00:00 00:00:00 [facility] 350.1.13.10 it y of [place] 4.2.7.2.686 Brendan as Professio [phone] [facility] [address] [place] [address] Office [facility] One 2019-07-03 2019-07-03 [facility]ta [facility] [id number] Univers 00:00:00 00:00:00 [facility] 350.1.13.10 it y of [place] 4.2.7.2.686 Brendan as Professio [phone] Nj harrison beckman [address] [place] [address] One 2019-06-24 2019-06-24 Davey Escobar [facility] 1.2.840.114 [id number] Univers 00:00:00 00:00:00 [facility] 350.1.13.10 it y of [place] 4.2.7.2.686 Brendan as Professio [phone] Nj harrison beckman [address] [place] [address] One 2019-06-12 2019-06-12 Davey Escobar [facility] 1.2.840.114 [id number] Univers 00:00:00 00:00:00 [facility] 350.1.13.10 it y of [place] 4.2.7.2.686 Brendan as Professio [phone] Nj harrison beckman [address] [place] [address] One 2019-02-06 2019-02-06 Davey Escobar [facility] 1.2.840.114 [id number] Univers 00:00:00 00:00:00 [facility] 350.1.13.10 it y of [place] 4.2.7.2.686 Brendan as Professio [phone] Nj harrison beckman [address] [place] [address] One 2019-02-01 2019-02-01 Davey Escobar [facility] 1.2.840.114 [id number] Univers 00:00:00 00:00:00 [facility] 350.1.13.10 it y of [place] 4.2.7.2.686 Brendan as Professio [phone] [facility] nal [address] [place] [address] Office [facility] One 2019-01-04 2019-01-04 Davey Escobar [facility] 1.2.840.114 [id number] Univers 00:00:00 00:00:00 [facility] 350.1.13.10 it y of [place] 4.2.7.2.686 Brendan as Professio [phone] Nj adalidva nal [address] [place] [address] One 2019-01-03 2019-01-03 [facility] 1.2.840.114 [id number] Univers 00:00:00 00:00:00 [facility] 350.1.13.10 it y of [place] 4.2.7.2.686 Brendan as Professio [phone] Nj dicva nal [address] One 2018-02-10 2018-02-10 Appointmen MAGDY, UTP Cardiology [id number] [place] 09:30:00 09:30:00 t; ana FELDMAN Physic priyanka CURRAN M.D. [facility] GASTON ayala M.D. 2018-01-27 2018-01-27 Appointmen HEMATPOUR, UTP UTP [id number] [place] 10:30:00 10:30:00 t; KHASHAYAR Phys ici HEMATPOUR, ans KHASHAYAR 2018-01-26 2018-01-26 Appointmen SE, ECHO UTP UTP [id number] [place] 08:00:00 08:00:00 t; SE, Physic i ECHO ans 2018-01-18 2018-01-18 Appointmen HEMATPOUR, UTP UTP [id number] [place] 10:30:00 10:30:00 t; KHASHAYAR Phys ici HEMATPOUR, ans [facility] 2018-01-10 2018-01-10 Appointmen NASCIMBENE, UTP Cardiology [id number] [place] 14:30:00 14:30:00 t; ana FELDMAN Lamont CURRAN M.D. [facility] GASTON ayala M.D. 2017-12-28 2017-12-28 Appointwilliams MAGDY, UTP Cardiology [id number] [place] 08:30:00 08:30:00 t; ana FELDMAN Lamont CURRAN M.D. [facility] GASTON ayala M.D. 2017-07-05 2017-07-05 Orders Doctor MUNOZ 1.2.840.114 [id number] Univers 00:00:00 00:00:00 Only Unassigned, ARUNA 350.1.13.10 ity of [place] [facility] 4.2.7.2.686 Brendan as [phone] [address] Results Test Description Test Time Test Comments Results Result Comments Source COMP. METABOLIC PANEL (49907) 2022-02-02 05:56:57 Test Item Value Reference Range Interpretation Comme nts NA (test code = 5369801577) 140 mmol/L 135-145 K (test code = 4541366753) 4.0 mmol/L 3.5-5 CL (test code = 1181582098) 103 mmol/L 98-108 CO2 TOTAL (test code = 8027056729) 26 mmol/L 23-31 AGAP (test code = 7555256052) 2-16 BUN (test code = 4782895577) 13 mg/dL 7-23 GLUCOSE (test code = 7748271013) 117 mg/dL 70-110 H CREATININE (test code = 0.84 mg/dL 0.5-1.04 9059760275) TOTAL BILI (test code = 0.5 mg/dL 0.1-1.0 5897844880) CALCIUM (test code = 4471964935) 9.9 mg/dL 8.6-10.6 T PROTEIN (test code = 4319698640) 7.0 g/dL 6.3-8.2 ALBUMIN (test code = 2785254497) 4.9 g/dL 3.5-5 ALK PHOS (test code = 4280880403) 55 U/L 34-122 ALTv (test code = 1742-6) 41 U/L 5-35 H AST(SGOT) (test code = 2458202355) 32 U/L 13-40 eGFR (test code = 0107718653) mL/min/1.73m2 SARATH (test code = SARATH) Association of Glomerular Filtration Rate (GFR) and Staging of Kidney Disease* + +-------- + ------+| GFR (mL/min/1.73 m2) ?| With Kidney Damage ?| ?Without Kidney Damage+ +-- + +| ?>90 ?| ?Stage one ?| ? Normal ?+ +------- + -------+| ?60-89 ?| ?Stage two ?| ? Decreased GFR ? + +-------- + ------+| ?30-59 ?| ?Stage three ?| ? Stage three ? + +-------- + ------+| ?15-29 ?| ?Stage four ? | ? Stage four ?+ +------- + -------+| ?<15 (or dialysis) ? ?| ?Stage five ? | ? Stage five ?+ +------- + -------+ *Each stage assumes the associated GFR level has been in effect for at least three months. ?Stages 1 to 5, with or without kidney disease, indicate chronic kidney disease. Notes: Determination of stages one and two (with eGFR >59mL/min/1.73 m2) requires estimation of kidney damage for at least three months as defined by structural or functional abnormalities of the kidney, manifested by either:Pathological abnormalities or Markers of kidney damage (including abnormalities in the composition of the blood or urine or abnormalities in imaging tests). Lab Interpretation (test code = Abnormal 02756-3) [facility] WITH [id number] 05:48:21 Test Item Value Reference Range Interpretation Comments WBC (test code = See_Comment [Automated 4490-2) message] The sy stem which generated this result transmitted reference range : 4.30 - 11.10 10*3/?L. The reference range was not used to interpret this result as normal/abnormal . RBC (test code = See_Comment [Automated 789-8) message] The sy stem which generated this result transmitted reference range : 3.93 - 5.25 10*6/?L. The reference range was not used to interpret this result as normal/abnormal . HGB (test code = 14.7 g/dL 11.6-15 718-7) HCT (test code = 43.0 % 35.7-45.2 4544-3) MCV (test code = 89.4 fL 80.6-95.5 787-2) MCH (test code = 30.6 pg 25.9-32.8 785-6) MCHC (test code = 34.2 g/dL 31.6-35.1 786-4) RDW-SD (test code = 37.9 fL 39-49.9 L 77536-1) RDW-CV (test code = 11.6 % 12-15.5 L 788-0) PLT (test code = See_Comment [Automated 777-3) message] The sy stem which generated this result transmitted reference range : 166 - 358 10*3/ ?L. The reference r yaneth was not used to interpret this result as normal/abnormal . MPV (test code = 12.3 fL 9.5-12.9 81372-3) NRBC/100 WBC (test See_Comment [Automat ed code = 1586202776) message] The system which generated this result transmitted reference range : 0.0 - 10.0 /100 WBCs. The refer ence range was not u sed to interpret th is result as normal/abnormal . NRBC x10^3 (test code See_Comment [Auto mated = 3139417221) message] The s ystem which generated this result transmitted reference range : 10*3/?L. The reference range was not used to interpret this result as normal/abnormal . GRAN MAT (NEUT) % 63.0 % (test code = 770-8) IMM GRAN % (test code 0.40 % = 9655724097) LYMPH % (test code = 29.3 % 736-9) MONO % (test code = 4.7 % 5905-5) EOS % (test code = 1.6 % 713-8) BASO % (test code = 1.0 % 706-2) GRAN MAT x10^3(ANC) 5.24 10*3/uL 1.88-7.09 (test code = 0858551235) IMM GRAN x10^3 (test 0.03 10*3/uL 0-0.06 code = 5394024176) LYMPH x10^3 (test code 2.43 10*3/uL 1.32-3.29 = 731-0) MONO x10^3 (test code 0.39 10*3/uL 0.33-0.92 = 742-7) EOS x10^3 (test code = 0.13 10*3/uL 0.03-0.39 711-2) BASO x10^3 (test code 0.08 10*3/uL 0.01-0.07 H = 704-7) Lab Interpretation Abnormal (test code = 91939-6) [id number] 05:[facility]00 Test Item Value Reference Range Interpretation Comments POCT PREG (test code = 1605) negative On board controls acceptable with present C Line (test code = 3574) POCT PREG LOT # (test code = 3575) [id number] POCT PREG TEST DATE (test 2023-04-22 code = 3576) Lab Interpretation (test code = Normal 55792-3) [facility]ysis[facility] 17:23:00 Test Item Value Reference Range Interpretation Comments APPEARANCE (test code Slightly Cloudy Clear A = 9709245814) COLOR (test code = Yellow Yellow 0989034969) PH (test code = 4.8-8.0 2437734386) SP GRAVITY (test code >=1.030 1.003-1.030 = 7354382796) GLU U QUAL (test code Negative Negative = 1059828123) BLOOD (test code = Trace Negative A 7102729197) KETONES (test code = Negative Negative 4984679011) PROTEIN (test code = Negative Negative 2887-8) UROBILIN (test code = 0.2 mg/dL See_Comment [Auto mated 2196233357) message] The system which generated this result transmit lizette reference range : 0-1.0 mg/dL. Th e reference range was not used to interpret this result as normal/abnormal . BILIRUBIN (test code Moderate Negative A = 9588957542) NITRITE (test code = Negative Negative 4654241296) LEUK EITAN (test code Negative Negative = 0769946339) RBC/HPF (test code = See_Comment [Autom ated 8042620292) message] The system which generated this result transmit lizette reference range : 0 - 3 HPF. The reference range was not used to interpret this result as normal/abnormal . WBC/HPF (test code = See_Comment [Autom ated 2186601707) message] The system which generated this result transmit lizette reference range : 0 - 5 HPF. The reference range was not used to interpret this result as normal/abnormal . BACTERIA (test code = Few Negative A 5190238986) MUCOUS (test code = Slight Negative LPF A 1444746482) SQ EPITH (test code = HPF 3262955918) Lab Interpretation Abnormal (test code = 13043-3) [facility] Metabolic Panel (NA, K, CL, CO2, GLUCOSE, BUN, CREATININE, CA)2020-05-11 17:07:00 Test Item Value Reference Range Interpretation Comments NA (test code = 140 mmol/L 135-145 6321716803) K (test code = 3.7 mmol/L 3.5-5 7872996916) CL (test code = 102 mmol/L 98-108 1208707779) CO2 TOTAL (test code = 29 mmol/L 23-31 3362384066) AGAP (test code = 2-16 4285374753) BUN (test code = 10 mg/dL 7-23 5026962048) GLUCOSE (test code = 118 mg/dL 70-110 H 3227084550) CREATININE (test code = 0.70 mg/dL 0.5-1.04 5500156695) CALCIUM (test code = 9.3 mg/dL 8.6-10.6 0867908267) eGFR Calculation mL/min/1.73m2 (Non-) (test code = 9486239917) eGFR Calculation mL/min/1.73m2 () (test code = 2312471438) SARATH (test code = SARATH) Association of Glomerular Filtration Rate (GFR) and Staging of Kidney Disease* + --+ --+ ------+| GFR (mL/min/1.73 m2) ?| With Kidney Damage ?| ?Without Kidney Damage+ --------+ --------+ +| ?>90 ?| ?Stage one ?| ? Normal ?+ ---+ ---+ -------+| ?60-89 ?| ?Stage two ?| ? Decreased GFR ? + --+ --+ ------+| ?30-59 ?| ?Stage three ?| ? Stage three ? + --+ --+ ------+| ?15-29 ?| ?Stage four ? | ? Stage four ?+ ---+ ---+ -------+| ?<15 (or dialysis) ? ?| ?Stage five ? | ? Stage five ?+ ---+ ---+ -------+ *Each stage assumes the associated GFR level has been in effect for at least three months. ?Stages 1 to 5, with or without kidney disease, indicate chronic kidney disease. Notes: Determination of stages one and two (with eGFR >59mL/min/1.73 m2) requires estimation of kidney damage for at least three months as defined by structural or functional abnormalities of the kidney, manifested by either:Pathological abnormalities or Markers of kidney damage (including abnormalities in the composition of the blood or urine or abnormalities in imaging tests). Lab Interpretation Abnormal (test code = 41115-5) [facility] (ALB, T.PRO, BILI T, BU/BC, ALT, AST, ALK PHOS)2020-05-11 17:07:00 Test Item Value Reference Range Interpretation Comments TOTAL BILI (test code = 4468895603) 0.6 mg/dL 0.1-1.1 BILI UNCON (test code = 5477710063) 0.6 mg/dL 0.1-1.1 BILI CONJ (test code = 1593228265) 0.0 mg/dL 0-0.3 T PROTEIN (test code = 5616606915) 6.7 g/dL 6.3-8.2 ALBUMIN (test code = 2068699120) 4.1 g/dL 3.5-5 ALK PHOS (test code = 4029052321) 65 U/L 34-122 ALTv (test code = 1742-6) 20 U/L 5-35 AST(SGOT) (test code = 1993887922) 20 U/L 13-40 Lab Interpretation (test code = Normal 35908-2) [facility] NOW RAPID TESTING)2020-05-11 17:07:00 Test Item Value Reference Range Interpretation Comments SARS-CoV-2 Rapid ID NOW Not Detected Not Detected (test code = 92563-9) SARATH (test code = SARATH) ID NOW COVID-19 Assay is an isothermal nucleic acid amplification test intended for the qualitative detection of nucleic acid from SARS-CoV-2 viral RNA in nasopharyngeal (LEGAL INTERN) specimens. It is used under Emergency Use Authorization (EUA) by FDA. The limit of detection (LOD) of the assay is 125 Genome Equivalents/mL. A positive result is indicative of the presence of SARS-CoV-2 RNA. ?Clinical correlation with patient history and other diagnostic information is necessary to determine patient infection status. A negative (Not Detected) result does not preclude SARS-CoV-2 infection. In patients with clinical symptoms and other tests that are consistent with SARS-CoV-2 infection, negative results should be treated as presumptive negative and a new specimen should be tested with alternative PCR molecular test. Invalid: Please collect a new specimen for repeat patient testing if clinically indicated. Lab Interpretation Normal (test code = 20819-6) [facility] with [id number] 16:50:00 Test Item Value Reference Range Interpretation Comments WBC (test code = See_Comment [Automated 6690-2) message] The sy stem which generated this result transmitted reference range : 4.30 - 11.10 10*3/?L. The reference range was not used to interpret this result as normal/abnormal . RBC (test code = See_Comment [Automated 789-8) message] The sy stem which generated this result transmitted reference range : 3.93 - 5.25 10*6/?L. The reference range was not used to interpret this result as normal/abnormal . HGB (test code = 13.2 g/dL 11.6-15 718-7) HCT (test code = 39.5 % 35.7-45.2 4544-3) MCV (test code = 91.4 fL 80.6-95.5 787-2) MCH (test code = 30.6 pg 25.9-32.8 785-6) MCHC (test code = 33.4 g/dL 31.6-35.1 786-4) RDW-SD (test code = 39.0 fL 39-49.9 28367-5) RDW-CV (test code = 11.6 % 12-15.5 L 788-0) PLT (test code = See_Comment [Automated 777-3) message] The sy stem which generated this result transmitted reference range : 166 - 358 10*3/ ?L. The reference r yaneth was not used to interpret this result as normal/abnormal . MPV (test code = 12.0 fL 9.5-12.9 21580-8) NRBC/100 WBC (test See_Comment [Automat ed code = 0630755084) message] The system which generated this result transmitted reference range : 0.0 - 10.0 /100 WBCs. The refer ence range was not u sed to interpret th is result as normal/abnormal . NRBC x10^3 (test code <0.01 See_Comment [Auto mated = 1342776948) message] The s ystem which generated this result transmitted reference range : 10*3/?L. The reference range was not used to interpret this result as normal/abnormal . GRAN MAT (NEUT) % 51.6 % (test code = 770-8) IMM GRAN % (test code 0.60 % = 9571201255) LYMPH % (test code = 38.3 % 736-9) MONO % (test code = 4.5 % 5905-5) EOS % (test code = 4.3 % 713-8) BASO % (test code = 0.7 % 706-2) GRAN MAT x10^3(ANC) 4.35 10*3/uL 1.88-7.09 (test code = 7526745506) IMM GRAN x10^3 (test 0.05 10*3/uL 0-0.06 code = 8855307325) LYMPH x10^3 (test code 3.23 10*3/uL 1.32-3.29 = 731-0) MONO x10^3 (test code 0.38 10*3/uL 0.33-0.92 = 742-7) EOS x10^3 (test code = 0.36 10*3/uL 0.03-0.39 711-2) BASO x10^3 (test code 0.06 10*3/uL 0.01-0.07 = 704-7) Lab Interpretation Abnormal (test code = 25946-7) [facility] [id number] 16:32:00 Test Item Value Reference Range Interpretation Comments POCT PREG (test code = 1605) negative On board controls acceptable with present C Line (test code = 3574) POCT PREG LOT # (test code = 3575) [id number] POCT PREG TEST DATE (test 08/21/2021 code = 3576) Lab Interpretation (test code = Normal 68297-5) [facility] [id number] 22:43:00 Test Item Value Reference Range Interpretation Comments SARS-CoV-2 (test code = Not Detected Not Detected 24226-2) SARATH (test code = SARATH) ID NOW COVID-19 Assay is an isothermal nucleic acid amplification test intended for the qualitative detection of nucleic acid from SARS-CoV-2 viral RNA in nasopharyngeal (LEGAL INTERN) specimens. It is used under Emergency Use Authorization (EUA) by FDA. The limit of detection (LOD) of the assay is 125 Genome Equivalents/mL. A positive result is indicative of the presence of SARS-CoV-2 RNA. ?Clinical correlation with patient history and other diagnostic information is necessary to determine patient infection status. A negative (Not Detected) result does not preclude SARS-CoV-2 infection and should not be used as the sole basis for patient management decisions. ? Invalid: Please collect a new specimen for repeat patient testing if clinically indicated. Lab Interpretation Normal (test code = 80674-2) [facility]] CBC (INCLUDES DIFF/PLT)2018-01-17 08:56:01 Test Item Value Reference Range Interpretation Comments WBC (test code = 6690-2) 9.3 {K/CMM} 3.7-10.4 RBC; Below Low Threshold (test 3.92 {M/CMM} 4.20-5.40 code = 789-8) Hgb (test code = 718-7) 12.4 g/dl 12.0-16.0 Hct (test code = 18011-5) 36.4 % 36.0-48.0 MCV (test code = 787-2) 93.0 fL 80.0-98.0 MCH; Above High Threshold (test 31.7 pg 27.0-31.0 code = 785-6) MCHC (test code = 786-4) 34.1 g/dl 32.0-36.0 RDW (test code = 788-0) 12.8 % 11.5-14.5 Platelet (test code = 86938-6) 262 {K/CMM} 133-450 Mean Platelet Volume (test code 10.4 fL 7.4-10.4 = 18463-2) [facility]] [id number] 08:56:01 Test Item Value Reference Range Interpretation Comments Segmented Neutrophils; Above High 79.9 % 45.0-75.0 Threshold (test code = 26472-5) Monocytes (test code = 42038-6) 2.9 % 2.0-12.0 Lymphocytes; Below Low Threshold 16.8 % 20.0-40.0 (test code = 27708-2) Basophils (test code = 706-2) 0.4 % 0.0-1.0 Segs-Bands # (test code = 7.4 {K/CMM} 1.5-8.1 28484-3) Lymphocytes # (test code = 1.6 {K/CMM} 1.0-5.5 07834-2) Monocytes # (test code = 27595-7) 0.3 {K/CMM} 0.0-0.8 [facility]] CMP [id number] 08:56:01 Test Item Value Reference Range Interpretation Comments Sodium Level 141 {mEq/l} 135-145 (test code = 2951-2) Potassium Level 4.5 {mEq/l} 3.5-5.1 (test code = 2823-3) Chloride Level 108 {mEq/l} 95-109 (test code = 5-0) Carbon Dioxide 28 {mEq/l} 24-32 (test code = 2027-9) AGAP; Below Low 9.5 {mEq/l} 10.0-20.0 Threshold (test code = 21506-3) Glucose Lvl; 127 mg/dl 70-99 Adult reference range Above High values reflect the Threshold (test clinical michelle delinesof the code = 2345-7) [place] [employer]. Creatinine Lvl 0.90 mg/dl 0.50-1.40 (test code = 2160-0) Blood Urea 11 mg/dl 7-22 Nitrogen (test code = 3094-0) BUN/Creatinine 12 6-25 Ratio (test code = 3097-3) Total Protein 6.9 g/dl 6.4-8.4 (test code = 2885-2) Albumin Lvl (test 4.0 g/dl 3.5-5.0 code = 1751-7) Globulin (test 2.9 g/dl 2.7-4.2 code = 92890-3) A/G Ratio (test 1.4 0.7-1.6 code = 1759-0) Calcium Level 9.0 mg/dl 8.5-10.5 Total (test code = 32847-9) ALT (test code = 25 u/l 0-65 3-4) AST (test code = 10 u/l 0-37 40754-7) Alk Phos (test 57 u/l 39-136 code = 1783-0) Bili Total (test 0.3 mg/dl 0.2-1.3 code = 1974-) eGFR (test code = 81 The eGFR i s calculated 81065-9) {ML/MIN/1.7} using the CKD-E PI formula. In mos t young, healthyindividu als the eGFR will be >9 0 mL/min/1.73m2. The eGFR declines with a ge. AneGFR of 60-89 may be normal in some population s, particularly th e elderly, forwhom the CKD -EPI formula has not been extensively isaías idated. Use of the eGFR isnot recommended in the following populations:Ind ividuals with unstable c reatinine concentrations, including patient s and those with seri ous co-morbid conditions.[place] with extremes in mus julieta mass or diet.The isabel a above are obtained fr om the National Kidney Disease Education Progr am(NKDEP) which ermias juárez recommends that when the eGFR is used in patientswith ex tremes of body mass index for purposes of sam g dosing, the eGFR should be multiplied by t he estimated BMI. [facility][QL] LIPID [id number] 08:56:01 Test Item Value Reference Range Interpretation Comments Chol (test code = 2093-3) 136 mg/dl <=199 Trig (test code = 2571-8) 114 mg/dl <=149 HDL Cholesterol; Below Low 41 mg/dl >=61 Threshold (test code = 2085-9) CHD Risk; Below Low Threshold (test 3.32 3.90-5.80 code = 69768-1) LDL (test code = 40763-0) 72 mg/dl <=99 VLDL (test code = VLDL) 23 [facility][QL] [id number] 08:56:01 Test Item Value Reference Range Interpretation Comments Magnesium Level (test code = 2.1 mg/dl 1.8-2.4 94597-8) [facility][QL] TSH, 3RD [id number] 08:56:01 Test Item Value Reference Range Interpretation Comments TSH (test code = 28737-7) 0.383 {uIU/ml} 0.360-3.740 [facility]] HEMOGLOBIN [id number] 08:56:01 Test Item Value Reference Range Interpretation Comments Hemoglobin A1c (test code = 4548-4) 5.2 % <=5.6 [facility]iciansBHCG, Serum, [id number] 02:04:00 Test Item Value Reference Range Interpretation Comments Preg Qual [Se] (test code = BSHCG) Negative Negative N RPR, [id number] 11:29:00 Test Item Value Reference Range Interpretation Comments RPR (test code = RPR) Non-Reactive Non-Reactive N Thyroid Stimulating Hormone (TSH)2017-04-23 09:23:00 Test Item Value Reference Range Interpretation Comments TSH (test code = TSH) 1.44 mIU/mL 0.270-4.200 N Lipid [id number] 09:17:00 Test Item Value Reference Range Interpretation Comments Cholesterol (test 165 mg/dL 0-200 N code = CHOL) Triglycerides (test 189 mg/dL 9-200 N code = TRIG) HDL (test code = 35 mg/dL 50-60 L HDL) Chol/HDL (test code 4.7 Ratio 0.0-4.4 H = CHOLPHDL) LDL, Calculated 92 0-130 N (NOTE)RISK O F HEART (test code = LDLC) DISEASEPu blished by [place] Heart AssociationAnal yte Optimal Boderli ne Increased RiskC HOL <200 200-239 >240TRI G <150 150-199 >200HDL Male: >60 <40HDL Fema le: >60 <50LDL <100 130 -159 >160LDL NEAR OP TIMAL IS 100-129 VLDL (test code = 38 mg/dL 5-40 N VLDL) LDL/HDL (test code = 3 LDLPHDL)"
[2022-07-05] MEDS ORDERED: LIDOCAINE 1% MPF 30 ML VIAL ONE (17:52)
[2022-07-05] MEDS ORDERED: TETANUS & DIPHTHERIA TOX,ADULT 0.5 ML VIAL ONE (17:52)
--- NOTE | 2022-07-05 18:16 | EDPHYS ---
Physician Documentation [facility] Name: Renae Cheema Age: 42 yrs Sex: Female : 1980 Arrival Date: 07/05/2022 Time: 17:11 Bed 11 Private MD: EMILIANO Physician Trip Rivers HPI: 07/05 17:31 This 42 yrs old Female presents to ER via Ambulatory with complaints of Thumb jmm laceration. 17:31 The patient or guardian reports injury, pain. Onset: The symptoms/episode jmm began/occurred acutely, just prior to arrival. a 42-year-old female with a history of SVT and rheumatoid arthritis the presents emerged part with complaints of a laceration to the left. Patient states she actually cut herself with a knife. Patient is not up-to-date on tetanus immunization. 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 - Social history:: Smoking status: Patient denies any tobacco usage or history of. ROS: 17:31 Constitutional: Negative for fever, chills, and weight loss, Cardiovascular: Negative jmm for chest pain, palpitations, and edema, Respiratory: Negative for shortness of breath, cough, wheezing, and pleuritic chest pain. 17:31 Skin: Positive for laceration(s). 17:31 All other systems are negative. Exam: 17:31 Constitutional: This is a well developed, well nourished patient who is awake, alert, jmm and in no acute distress. Head/Face: atraumatic. Eyes: EOMI, no conjunctival erythema appreciated ENT: Moist Mucus Membranes Neck: Trachea midline, Supple Chest/axilla: Normal chest wall appearance and motion. Cardiovascular: Regular rate and rhythm. No edema appreciated Respiratory: Normal respirations, no respiratory distress appreciated Abdomen/GI: Non distended Back: Normal ROM 17:31 Skin: 2 cm laceration noted at the base of the left thumb on the palmar side. 17:31 Neuro: Orientation: is normal, Mentation: is normal, Memory: is normal. 17:31 Psych: Behavior/mood is pleasant, cooperative. Vital Signs: 17:16 BP 134 / 92; Pulse 88; Resp 18; Temp 98.2; Pulse Ox 99% ; Weight 88.45 kg; Height 5 ft. ko1 7 in. (170.18 cm); 17:16 Body Mass Index 30.54 (88.45 kg, 170.18 cm) ko1 Laceration: 18:12 Wound Repair of 2cm ( 0.8in ) subcutaneous laceration to palmar aspect of proximal jmm phalanx of left thumb. Distal neuro/vascular/tendon intact. Anesthesia: Local anesthetic administered with 3 mls of 1% lidocaine. Wound prep: Simple cleansing with betadine by me. Skin closed with 4 5-0 Prolene using simple sutures and sterile technique. Patient tolerated well. MDM: 17:31 Patient medically screened. [facility] 18:12 Data reviewed: vital signs, nurses notes. I considered the following discharge [facility] prescriptions or medication management in the emergency department Medications were administered in the Emergency Department. See MAR. Counseling: I had a detailed discussion with the patient and/or guardian regarding: the historical points, exam findings, and any diagnostic results supporting the discharge/admit diagnosis, the need for outpatient follow up, to return to the emergency department if symptoms worsen or persist or if there are any questions or concerns that arise at home. ED course: Patient is alert and non toxic in appearance in the ED. Given wound infection return precautions. patient understood and agrees with the plan of care. . Administered Medications: 17:57 Drug: Lidocaine (1 %) 20 ml {Note: by Yogesh MCADAMS during suture repair.} Volume: 20 ll1 ml; Route: Infiltration; 17:57 Drug: Tetanus Toxoid,Adsorbed 0.5 ml {Embryology Professor: [employer]. Exp: 09/27/2023. Lot ll1 #: [id number]. } Route: IM; Site: left deltoid; Disposition Summary: 07/05/22 18:16 Discharge Ordered Location: Home [facility] Condition: Stable [facility] Diagnosis - Laceration of the Left Thumb [facility] Followup: gabriela - With: Private Physician - When: 10 - 14 days - Reason: Recheck today's complaints, Continuance of care, Re-evaluation by your physician Discharge Instructions: - Discharge Summary Sheet gabriela - Laceration Care, Adult gabriela Forms: - Medication Reconciliation Form gabriela - Thank You Letter gabriela - Antibiotic Education gabriela - Prescription Opioid Use gabriela Signatures: Lefty Bustamante PA PA jmm Lewis, Lynsay RN RN ll1 Carolina Leigh RN RN ko1 Corrections: (The following items were deleted from the chart) 17:17 17:16 Allergies: NKDA; ko1 ko1
--- NOTE | 2022-07-05 18:16 | ER ---
Nurse's Notes [facility] Name: Renae Cheema Age: 42 yrs Sex: Female : 1980 Arrival Date: 07/05/2022 Time: 17:11 Bed 11 Private MD: Diagnosis: Laceration of the Left Thumb Presentation: 07/05 17:14 Chief complaint: Patient states: I was cutting like you aren't suppose to and cut my ko1 thumb. Coronavirus screen: At this time, the client does not indicate any symptoms associated with coronavirus-19. Ebola Screen: No symptoms or risks identified at this time. Initial Sepsis Screen: Does the patient meet any 2 criteria? No. Patient's initial sepsis screen is negative. Does the patient have a suspected source of infection? No. Patient's initial sepsis screen is negative. Risk Assessment: Do you want to hurt yourself or someone else? Patient reports no desire to harm self or others. Onset of symptoms was July 05, 2022. 17:14 Method Of Arrival: Ambulatory ko1 17:14 Acuity: VERA 2 ko1 Triage Assessment: 17:16 General: Appears in no apparent distress. uncomfortable, Behavior is calm, cooperative, ko1 appropriate for age. Pain: Complains of pain in Left first web space. 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 - Social history:: Smoking status: Patient denies any tobacco usage or history of. Screenin:58 [facility] ED Fall Risk Assessment (Adult) Score/Fall Risk Level 0 - 2 = Low Risk ll1 Oriented to surroundings, Maintained a safe environment, Educated pt \T\ family on fall prevention, incl call for assistance when getting out of bed, Hourly rounding (assess needs \T\ fall precautionary measures) done. Abuse screen: Denies threats or abuse. Nutritional screening: No deficits noted. Tuberculosis screening: No symptoms or risk factors identified. Assessment: 17:58 Reassessment: No changes from previously documented assessment. Patient and/or family ll1 updated on plan of care and expected duration. Pain level reassessed. Patient is alert, oriented x 3, equal unlabored respirations, skin warm/dry/pink. Vital Signs: 17:16 BP 134 / 92; Pulse 88; Resp 18; Temp 98.2; Pulse Ox 99% ; Weight 88.45 kg; Height 5 ft. ko1 7 in. (170.18 cm); 17:16 Body Mass Index 30.54 (88.45 kg, 170.18 cm) ko1 ED Course: 17:11 Patient arrived in ED. mr 17:16 Triage completed. ko1 17:16 Arm band placed on right wrist. ko1 17:31 Lefty Bustamante PA is PHCP. [facility] 17:31 Trip Rivers MD is Attending Physician. [facility] 17:57 Magda Renteria RN is Primary Nurse. ll1 18:22 Patient has correct armband on for positive identification. Bed in low position. Call ko1 light in reach. Side rails up X 1. Pulse ox on. NIBP on. 18:22 Assist provider with laceration repair on left hand and Left first web space using ko1 sutures. Set up tray. Performed by Lefty MCADAMS Dressed with band aid, Patient tolerated well. Patient did not have IV access during this emergency room visit. Administered Medications: 17:57 Drug: Lidocaine (1 %) 20 ml {Note: by Yogesh Bustamante. ABBE during suture repair.} Volume: 20 ll1 ml; Route: Infiltration; 17:57 Drug: Tetanus Toxoid,Adsorbed 0.5 ml {Global Chief Creative Officer: [employer]. Exp: 09/27/2023. Lot ll1 #: [id number]. } Route: IM; Site: left deltoid; Medication: 18:22 Vaccine Information Statement (VIS) provided today. Questions and/or concerns ko1 addressed. VIS edition date: July 05, 2022. Outcome: 18:16 Discharge ordered by . [facility] 18:22 Discharged to home ambulatory. ko1 18:22 Condition: stable 18:22 Discharge instructions given to patient, Instructed on discharge instructions, medication usage, wound care, Demonstrated understanding of instructions, follow-up care, wound care. 18:23 Patient left the ED. ko1 Signatures: Lefty Bustamante PA PA jmm Rivera Alicia mr Magda Renteria RN RN ll1 Carolina Leigh RN RN ko1 Corrections: (The following items were deleted from the chart) 17:17 17:16 Allergies: NKDA; ko1 ko1
[2022-07-05 18:35] VITALS: BP 134/92; TEMP 98.2; O2SAT 99
== END 2022-07-05 18:23 | disposition home or self-care (01) ==
LOC: ER 17:09
PROC: 0HQGXZZ Repair Left Hand Skin, External Approach (ICD-10-PCS; principal; 2022-07-05)
DX: S61.012A Laceration without foreign body of left thumb without damage to nail, initial encounter (principal); Z88.8 Allergy status to other drugs, medicaments and biological substances
CPT/HCPCS: 90471; 90714; 99283; J2001

== ENCOUNTER 2024-02-06 15:41 | Emergency (ER) | payer SELFPAY ==
[2024-02-06] MEDS ORDERED: ONDANSETRON 4 MG (ODT) TAB ONE (15:59)
[2024-02-06] MEDS ORDERED: HYDROCODONE/APAP 5/325 MG TAB ONE (16:00)
--- NOTE | 2024-02-06 16:42 | RAD REPORT ---
EXAM: 3 views views of the right foot HISTORY: Foot pain COMPARISON: None FINDINGS: Bones: Transversely oriented fracture at the great toe distal phalanx involving the proximal aspect. The fracture is essentially nondisplaced but does extend to the articular surface. Alignment:No significant malalignment. Degenerative changes:Plantar aspect calcaneal spur Other: n/a IMPRESSION: Nondisplaced fracture at the great toe distal phalanx with intra-articular extension.
--- NOTE | 2024-02-06 16:57 | ER ---
Nurse's Notes [facility] Name: Renae Cheema Age: 43 yrs Sex: Female : 1980 Arrival Date: 02/06/2024 Time: 15:41 Bed 20 Private MD: Diagnosis: Nondisplaced fracture of distal phalanx of right great toe, initial encounter for closed fracture Presentation: 02/05 15:57 Chief complaint: Right foot pain after mechanical fall from standing 1 hour ago. hb Coronavirus screen: At this time, the client does not indicate any symptoms associated with coronavirus-19. Ebola Screen: No symptoms or risks identified at this time. Initial Sepsis Screen: Does the patient meet any 2 criteria? No. Patient's initial sepsis screen is negative. Does the patient have a suspected source of infection? No. Patient's initial sepsis screen is negative. Risk Assessment: Do you want to hurt yourself or someone else? Patient reports no desire to harm self or others. Onset of symptoms was February 06, 2024. 15:57 Method Of Arrival: Ambulatory 15:57 Acuity: VERA 4 hb Triage Assessment: 16:02 General: Appears in no apparent distress. uncomfortable, Behavior is cooperative, hb restless. Pain: Pain currently is 8 out of 10 on a pain scale. Neuro: Level of Consciousness is awake, alert, obeys commands, Oriented to person, place, time, situation. Cardiovascular: Patient's skin is warm and dry. Respiratory: Respiratory effort is even, unlabored, Respiratory pattern is regular, symmetrical. Musculoskeletal: Reports right foot pain. Historical: - Allergies: 15:59 Wellbutrin; hb - Home Meds: 16:00 Ambien Oral nightly [Active]; Etodolac Oral [Active]; Lexapro 20 mg Oral tab once daily hb [Active]; Xanax 0.5 mg Oral tab nightly [Active]; - PMHx: 15:59 Rheumatoid Arthritis; SVT; hb - PSHx: 16:00 Cardiac Ablation; Utermine Ablation; hb - Immunization history:: Adult Immunizations up to date. - Infectious Disease History:: Denies. - Social history:: Smoking status: Patient denies any tobacco usage or history of. Screenin:58 Abuse screen: Denies threats or abuse. Denies injuries from another. Nutritional kc6 screening: No deficits noted. Tuberculosis screening: No symptoms or risk factors identified. 16:02 [facility] ED Fall Risk Assessment (Adult) History of falling in the last 3 months, kc6 including since admission Yes- single mechanical fall (1 pt) Confusion or Disorientation No (0 pts) Intoxicated or Sedated No (0 pts) Impaired Gait No (0 pts) Mobility Assist Device Used No (0 pt) Altered Elimination No (0 pt) Score/Fall Risk Level 0 - 2 = Low Risk. Assessment: 16:03 General: Appears in no apparent distress. uncomfortable, well groomed, well developed, kc6 Behavior is cooperative, appropriate for age, crying. Pain: Complains of pain in dorsum of right foot. Neuro: Level of Consciousness is awake, alert, obeys commands, Oriented to person, place, time, situation, Appropriate for age. Cardiovascular: Capillary refill < 3 seconds. Respiratory: Airway is patent Trachea midline Respiratory effort is even, unlabored, Respiratory pattern is regular, symmetrical. GI: No signs and/or symptoms were reported involving the gastrointestinal system. : No signs and/or symptoms were reported regarding the genitourinary system. EENT: No signs and/or symptoms were reported regarding the EENT system. Derm: No signs and/or symptoms reported regarding the dermatologic system. Skin is intact, is healthy with good turgor, Skin is pink, warm \T\ dry. Musculoskeletal: Circulation, motion, and sensation intact. Capillary refill < 3 seconds, Range of motion: intact in all extremities. 17:12 Reassessment: Patient appears in no apparent distress at this time. No changes from kc6 previously documented assessment. Patient and/or family updated on plan of care and expected duration. Pain level reassessed. Patient is alert, oriented x 3, equal unlabored respirations, skin warm/dry/pink. Vital Signs: 15:57 BP 135 / 91; Pulse 89; Resp 18; Temp 97.4(TE); Pulse Ox 100% on R/A; Weight 90.72 kg; hb Height 5 ft. 7 in. ; Pain 8/10; 15:57 Body Mass Index 31.32 (90.72 kg, 170.18 cm) hb 15:57 Pain Scale: Adult hb ED Course: 15:48 Patient arrived in ED. mg5 15:48 Carito Kuhn PA-C is PHCP. sb4 15:48 Delfino Wright MD is Attending Physician. sb4 15:55 Renita Park, RN is Primary Nurse. kc6 15:58 Patient has correct armband on for positive identification. Bed in low position. Call kc6 light in reach. Side rails up X 1. Pulse ox on. NIBP on. Ice pack to injury. Door closed. Noise minimized. Lights dimmed. 15:59 Triage completed. hb 16:27 Foot Right 3 View XRAY In Process Unspecified. EDMS 16:56 Blanco Villalpando DPM is Referral Physician. sb4 17:12 No provider procedures requiring assistance completed. Patient did not have IV access kc6 during this emergency room visit. 17:12 Migel tape right second toe and right first toe Ortho shoe applied to right foot. kc6 Administered Medications: 16:02 Drug: HYDROcodone-acetaminophen PO 5 mg-325 mg 2 tabs PO once Route: PO; kc6 17:02 Follow up: Response: No adverse reaction; Pain is decreased; RASS: Alert and Calm (0) kc6 16:02 Drug: Ondansetron Oral Disintegrating Tablet Oral Disintegrating Tablet 4 mg PO once kc6 Route: PO; 17:01 Follow up: Response: No adverse reaction kc6 Medication: 17:13 VIS not applicable for this client. kc6 Outcome: 16:57 Discharge ordered by . sb4 17:13 Discharged to home via wheelchair, with significant other, kc6 17:13 Condition: good 17:13 Discharge instructions given to patient, Instructed on discharge instructions, follow up and referral plans. Demonstrated understanding of instructions, follow-up care, 17:13 Patient left the ED. kc6 Signatures: Dispatcher [employer] EDWV Zora Kline RN RN hb Renita Park RN RN kc6 Carito Kuhn PA-C PA-C sb4 Nikki Ortiz mg5 Corrections: (The following items were deleted from the chart) 16:02 15:59 PSHx: ablation; hb hb 16:02 15:59 PSHx: Uterine Ablation (ablation); hb hb 16:02 15:59 PSHx: Cardiac Ablation (ablation); hb hb
--- NOTE | 2024-02-06 16:57 | EDPHYS ---
Physician Documentation [facility] Name: Renae Cheema Age: 43 yrs Sex: Female : 1980 Arrival Date: 02/06/2024 Time: 15:41 Bed 20 Private MD: ED Physician Delfino Wright HPI: 02/05 15:58 This 43 yrs old Female presents to ER via Unassigned with complaints of Foot Injury. sb4 15:58 The patient presents with decreased range of motion, an injury, pain, that is acute, sb4 swelling, tenderness. The complaints affect the right first toe and right second toe. Context: The problem was sustained at home, resulted from the patient tripping, the patient can partially bear weight, the patient is able to ambulate, Problem is a result from a previous injury: No. Onset: The symptoms/episode began/occurred just prior to arrival. Modifying factors: The symptoms are alleviated by remaining still, the symptoms are aggravated by movement. Associated signs and symptoms: The patient has no apparent associated signs or symptoms. Treatment prior to arrival includes: no previous treatment. The patient has not experienced similar symptoms in the past. The patient has not recently seen a physician. Historical: - Allergies: 15:59 Wellbutrin; hb - Home Meds: 16:00 Ambien Oral nightly [Active]; Etodolac Oral [Active]; Lexapro 20 mg Oral tab once daily hb [Active]; Xanax 0.5 mg Oral tab nightly [Active]; - PMHx: 15:59 Rheumatoid Arthritis; SVT; hb - PSHx: 16:00 Cardiac Ablation; Utermine Ablation; hb - Immunization history:: Adult Immunizations up to date. - Infectious Disease History:: Denies. - Social history:: Smoking status: Patient denies any tobacco usage or history of. ROS: 15:59 Constitutional: Negative for fever, chills, and weight loss, sb4 15:59 MS/extremity: Positive for injury or acute deformity, decreased range of motion, pain, swelling, tenderness, of the right second toe and right first toe, 15:59 All other systems are negative, Exam: 15:59 Head/Face: Normocephalic, atraumatic. Eyes: Extra-ocular motions intact. Periorbital sb4 areas with no swelling, redness, or edema. ENT: Mucous membranes moist. Skin: Warm, dry with normal turgor. Normal color with no rashes, no lesions, and no evidence of cellulitis. 15:59 Constitutional: The patient appears alert, awake, in obvious pain, uncomfortable, crying 15:59 Musculoskeletal/extremity: ROM: limited active range of motion due to pain, limited passive range of motion due to pain, Pulses: Perfusion: the patient is normally perfused throughout, Sensation intact. Vital Signs: 15:57 BP 135 / 91; Pulse 89; Resp 18; Temp 97.4(TE); Pulse Ox 100% on R/A; Weight 90.72 kg; hb Height 5 ft. 7 in. ; Pain 8/10; 15:57 Body Mass Index 31.32 (90.72 kg, 170.18 cm) hb 15:57 Pain Scale: Adult hb MDM: 15:50 Patient medically screened. sb4 16:56 Data reviewed: vital signs, nurses notes, radiologic studies, and as a result, I will sb4 discharge patient. Counseling: I had a detailed discussion with the patient and/or guardian regarding the historical points, exam findings, and any diagnostic results supporting the discharge/admit diagnosis, radiology results, to return to the emergency department if symptoms worsen or persist or if there are any questions or concerns that arise at home. 02/05 15:56 Order name: Foot Right 3 View XRAY; Complete Time: 16:46 sb4 02/05 15:56 Order name: Ice pack; Complete Time: 15:57 sb4 02/05 16:56 Order name: Ortho shoe; Complete Time: 17:02 sb4 02/05 16:56 Order name: Misc. Order: suma tape toes; Complete Time: 17:02 sb4 Administered Medications: 16:02 Drug: HYDROcodone-acetaminophen PO 5 mg-325 mg 2 tabs PO once Route: PO; kc6 17:02 Follow up: Response: No adverse reaction; Pain is decreased; RASS: Alert and Calm (0) kc6 16:02 Drug: Ondansetron Oral Disintegrating Tablet Oral Disintegrating Tablet 4 mg PO once kc6 Route: PO; 17:01 Follow up: Response: No adverse reaction kc6 Disposition: 02/06 07:43 Co-signature as Attending Physician, Deflino Wright MD I reviewed the patient's care rn provided by the Advanced Practice Provider and agree with the diagnosis and treatment plan. Disposition Summary: 02/06/24 16:57 Discharge Ordered Notes: Location: Home sb4 Problem: new sb4 Symptoms: have improved sb4 Condition: Stable sb4 Diagnosis - Nondisplaced fracture of distal phalanx of right great toe, initial encounter for sb4 closed fracture Followup: sb4 - With: Blanco Villalpando DPM - When: As needed - Reason: Recheck today's complaints, Re-evaluation by your physician Discharge Instructions: - Discharge Summary Sheet sb4 - Toe Fracture, [id number] sb4 Forms: - Work release form sb4 - Patient Portal Instructions sb4 - Leadership Thank You Letter sb4 Signatures: Dispatcher [employer] EDDelfino Gonsales MD MD rn Baxter, Heather, RN RN hb Campbell, Kaitlyn, RN RN Carito Whipple PA-C PA-C sb4 Corrections: (The following items were deleted from the chart) 02/05 15:56 15:56 Foot Right 3 View+[id number].[email or web address] ordered. EDMS EDMS 16:02 15:59 PSHx: ablation; hb hb 16:02 15:59 PSHx: Uterine Ablation (ablation); hb hb 16:02 15:59 PSHx: Cardiac Ablation (ablation); hb hb
[2024-02-06 17:19] VITALS: BP 135/91; TEMP 97.4; O2SAT 100
== END 2024-02-06 17:13 | disposition home or self-care (01) ==
LOC: ER 15:41
DX: S92.424A Nondisplaced fracture of distal phalanx of right great toe, initial encounter for closed fracture (principal)
CPT/HCPCS: 99284; Q0162